=== PATIENT | male | born 1965 | race Caucasian/White ===

== ENCOUNTER 2020-06-28 06:58 | Outpatient (REF) | payer OTHER, SELFPAY ==
[2020-06-28 08:00] LABS: MANUAL DIFF FLAG NO
[2020-06-28 08:07] LABS: Basophils Absolute Auto 0.1 X10*3/uL (0.0-0.2); Basophils Percent Auto 1.1 % (0-2); Eosinophils Absolute Auto 0.2 X10*3/uL (0.0-0.4); Eosinophils Percent Auto 3.7 % (0-4); Hematocrit 46.4 % (42-52); Hemoglobin 15.9 g/dl (14.0-18.0); Imm Gran Abs Auto 0.05 X10*3/uL (0.00-0.03); Imm Gran Pct Auto 0.8 % (0.0-0.4); Lymphocytes Absolute Auto 2.5 X10*3/uL (1.2-4.9); Lymphocytes Percent Auto 41.1 % (20-40); Mean Corpuscular HGB Conc 34.3 g/dl (31.0-36.0); Mean Corpuscular Hemoglobin 30.1 pg (27.0-33.0); Mean Corpuscular Volume 87.9 fL (80-98); Mean Platelet Volume 11.2 fL (9.4-12.4); Monocytes Absolute Auto 0.6 X10*3/uL (0.1-1.2); Monocytes Percent Auto 9.5 % (2-11); Neutrophils Absolute Auto 2.7 X10*3/uL (2.0-8.3); Neutrophils Percent Auto 43.8 % (45-73); Platelet Count 174 X10*3/uL (160-400); Red Blood Count 5.28 X10*6/uL (4.60-5.80); Red Cell Distribution Width 12.3 % (11.0-16.0); White Blood Count 6.2 X10*3/uL (4.8-10.8)
[2020-06-28 09:31] LABS: Creatinine Urine 181.88 mg/dL; Microalbum/Creatinine Ratio Ur 61.5 ug/mg cr
[2020-06-28 09:35] LABS: Alanine Aminotransferase 116 U/L (0-40); Albumin Level 4.8 g/dL (3.5-5.0); Alkaline Phosphatase 96 U/L (39-117); Anion Gap 15 (12-20); Aspartate Amino Transferase 74 U/L (5-37); Bilirubin Direct 0.3 mg/dL (0.0-0.5); Bilirubin Total 0.5 mg/dL (0.0-1.0); Blood Urea Nitrogen 15 mg/dL (9-16); Calcium 9.7 mg/dL (8.4-10.2); Carbon Dioxide 22 mmol/L (22-29); Chloride 104 mmol/L (96-108); Cholesterol 172 mg/dL; Estimated Glomerular Filt Rate > 60; Gamma Glutamyl Transpeptidase 147 U/L (11-51); Glucose Random 210 mg/dL (60-115); HDL Cholesterol 47 mg/dL; LDL Cholesterol Calculated 98 mg/dl; Potassium 4.1 mmol/L (3.3-5.1); Sodium 137 mmol/L (135-145); Total Protein 7.5 g/dL (6.5-8.0); Triglycerides 139 mg/dL; Uric Acid 3.8 mg/dL (3.4-7.0)
[2020-06-28 09:45] LABS: TSH reflex Free T4 1.35 uIU/mL (0.32-4.0); Vitamin D 25-OH Total 21.4 ng/mL (>30)
[2020-06-30 09:02] LABS: Folate 16.9 ng/mL (> or = 4.0); Vitamin B12 443 pg/mL (200-900)
== END 2020-06-28 06:59 | disposition home or self-care (01) ==
LOC: HO.LAB 06:58
PROVIDERS: PCP Family Medicine; Visit Provider Family Medicine
DX: E11.9 Type 2 diabetes mellitus without complications (principal)
CPT/HCPCS: 36415; 80048; 80061; 80076; 82043; 82306; 82607; 82746; 82977; 84443; 84550; 85025

== ENCOUNTER 2020-07-25 20:15 | Emergency (ER) | payer OTHER, SELFPAY ==
--- NOTE | ~2020-07-25 | XR_ITS ---
EXAMINATION: XR FINGER, RIGHT CLINICAL INFORMATION: Injury right middle finger COMPARISON: Right hand radiographs 09/16/2017 TECHNIQUE: 3 views of the right middle finger. FINDINGS: There is gross fragmentation of the distal phalanx of the middle finger with what appears to be a comminuted fracture. No other fractures are seen. Please correlate with the injury. A large defect is seen in the soft tissues at the level of the DIP joint on the radial aspect. XR/XR finger RT min 2V IMPRESSION: Comminuted fracture distal phalanx middle finger
[2020-07-25 20:38] VITALS: BP 115/64; PULSE 78; RESP 18; TEMP 36.7; O2SAT 97; BMI 28.5
[2020-07-25 20:50] LABS: Glucose, Whole Blood 171 mg/dL (60-115)
--- NOTE | 2020-07-25 21:14 | ED.WOUNDLAC ---
HPI - Wound/Laceration General Chief Complaint: Wound/Laceration Stated Complaint: lac Time Seen by Provider: 07/25/20 21:12 Source: patient Mode of arrival: ambulatory Limitations: no limitations History of Present Illness HPI narrative: Patient comes emergency room complaining of a laceration/near amputation to the middle finger on the right hand. Patient states he had a few beers to drink, he was sitting in a chair, somehow he slid out and his finger got trapped in the railing of the chair. Patient states that this time he has no pain, declines pain medication, bleeding controlled. Related Data Previous Rx's Medication Instructions Recorded cefuroxime axetil 500 mg PO BID #20 tab 07/25/20 ibuprofen 600 mg PO TID PRN #14 tab 07/25/20 tramadol 50 mg PO BID PRN #10 tab 07/25/20 Allergies Allergy/AdvReac Type Severity Reaction Status Date / Time No Known Allergies Allergy Unverified 11/08/19 16:22 Review of Systems Review of Systems: Constitutional : No Weight loss, No Fever, No Chills, No Night Sweats, No Fatigue, No Malaise ENT/Mouth : No Hearing loss, No Ear Pain, No Nasal Congestion, No Sinus Pain, No Hoarseness, No sore throat, No Rhinorrhea, No Swallowing Difficulty Eyes: No Eye Pain, No Swelling, No Redness, No Foreign Body, No Discharge, No Vision Changes Cardiovascular : No Chest Pain, No SOB, No Dyspnea on Exertion, No Orthopnea, No Edema, No Palpitations Respiratory : No Cough, No Sputum, No Wheezing, No Smoke Exposure, No Dyspnea Gastrointestinal : No Nausea, No Vomiting, No Diarrhea, No Constipation, No abdominal Pain, No Hematochezia, No Melena Genitourinary : no irregular bleeding, No Dysuria, No Urinary Frequency, No Hematuria, No Urinary Incontinence, No Urgency, No Flank Pain, No Urinary Flow Changes, No Hesitancy Musculoskeletal see skin below No Myalgias, No Joint Swelling Skin : Complaining of a laceration to the right middle finger Neuro : No Weakness, No Numbness, No Paresthesias, No Loss of Consciousness, No Dizziness, No Headache Psych : No Anxiety/Panic, No Depression, No SI/HI/AH/VH, No Social Issues, Heme/Lymph: No Bruising, No Bleeding,No Lymphadenopathy Endocrine : No Polyuria, No Polydipsia, No Temperature Intolerance PMF Past Medical History Medical History Diabetes Gout HTN (hypertension) Hyperlipemia Social History Social History Alcohol intake: current Alcohol intake frequency: a few times a week Alcohol type: beer Patient Tobacco Use Status: Never used Tobacco Smoked in Last 30 Days: No Use of substances other than those prescribed or required for medical reasons: No Advance Directives: No Advance Directives Information Provided: No Physical Exam Vital Signs: Vital Signs: Last Vital Signs Temp 98.0 F 07/25/20 20:38 Pulse 75 07/25/20 22:19 Resp 18 07/25/20 22:19 BP 102/62 07/25/20 22:19 Pulse Ox 97 07/25/20 22:19 Body Mass Index 28.5 Appearance: Alert. Oriented X3. No acute distress. Eyes: Pupils equal, round and reactive to light. ENT: Pharynx normal. Neck: Normal inspection. Neck supple. No lymph nodes noted. No crepitus CVS: Normal heart rate and rhythm. Pulses normal. Normal S1 and S2 Respiratory: No respiratory distress. Breath sounds normal. No Wheezing. No rales Abdomen: Soft and nontender. No rigidity. No distention. good BS x4 Skin: Skin warm and dry. Laceration to the right middle finger, near circumferential, deep, bleeding controlled. Extremities: No lower extremity edema. See skin above. Patient is able to flex and extend all fingers, however he is unable to flex the distal aspect of the distal middle finger. And a bloodless field exam, the distal aspect of the flexor, passing the DIP, the nerves are severed, the distal part of the middle finger is nearly degloved. Patient has no sensation/no pain when I move his finger or press on the distal aspect of his finger Neuro: Oriented X 3. No motor deficit. No sensory deficit. Moving all extermities. No slurred speech. Course Course Course Narrative: I discussed with the patient that the nerves in the distal part of his middle finger are severed, he is able to completely move his whole finger and flex the finger at the DIP. At this time, the tip of the finger is pink, seems that is getting good blood supply. I discussed with the patient that his nail will likely fall off, also discussed with the patient that he will likely be unable to regain movement at the distal end of his finger, passing the DIP. Patient understands. I discussed the patient with COMFORT Rivera from Orthopedics. Patient will follow-up as an outpatient Patient received 1 dose of IV cefotetan, Tdap, will be sent home with antibiotics as well. MDM - Wound/Laceration Lab Data Labs: Lab Results 07/25/20 Range/Units 20:45 POC Glucose 171 H (60-115) mg/dL Imaging Data Finger x-ray: Radiologist's impression: There is gross fragmentation of the distal phalanx of the middle finger with what appears to be a comminuted fracture. No other fractures are seen. Please correlate with the injury. A large defect is seen in the soft tissues at the level of the DIP joint on the radial aspect. XR/XR finger RT min 2V IMPRESSION: Comminuted fracture distal phalanx middle finger Discharge Plan Discharge Clinical Impression: Laceration Fracture of middle phalanx of finger Qualifiers: Encounter type: initial encounter Finger: middle finger Fracture type: open Fracture alignment: displaced Laterality: right Qualified Code(s): S62.622B - Displaced fracture of middle phalanx of right middle finger, initial encounter for open fracture Patient Disposition: Home, Self-Care Instructions: Laceration (ED), Finger Fracture (ED) Additional Instructions: Please follow-up with orthopedics. If you see any signs of infection such as redness, pus drainage, fever, anything abnormal, please return to the emergency room. Otherwise please follow-up with your primary care physician tomorrow and with Orthopedics on Tuesday. Prescriptions: New cefuroxime axetil 500 mg tablet 500 mg PO BID Qty: 20 RF: 0 tramadol 50 mg tablet 50 mg PO BID PRN (Reason: pain) Qty: 10 RF: 0 ibuprofen 600 mg tablet 600 mg PO TID PRN (Reason: pain) Qty: 14 RF: 0
[2020-07-25] MEDS: Diphth,Pertus(ACell),Tet Adult 0.5 ML SYRINGE IM (22:17)
[2020-07-25 22:19] VITALS: BP 102/62; PULSE 75; RESP 18; O2SAT 97
[2020-07-25] MEDS: Lidocaine HCl 2 % MPF 5 ML VIAL 10 ML INFILTRATI (22:35)
--- NOTE | 2020-07-25 23:00 | PC.NURSE ---
Dr. Altamirano at bedside suturing digit. Pt tolerating well.
[2020-07-25] MEDS: cefoTEtan disodium 2 GM VIAL IM (23:57)
[2020-07-26] MEDS: Morphine Sulfate 4 MG/ML CARTRIDGE IVPUSH (00:47)
== END 2020-07-26 01:22 | disposition home or self-care (01) ==
PROVIDERS: Emergency Provider Emergency Medicine
DX: S62.622B Displaced fracture of middle phalanx of right middle finger, initial encounter for open fracture (principal); W23.1XXA Caught, crushed, jammed, or pinched between stationary objects, initial encounter; Y93.89 Activity, other specified; Y92.017 Garden or yard in single-family (private) house as the place of occurrence of the external cause; Y99.9 Unspecified external cause status; E11.9 Type 2 diabetes mellitus without complications; I10 Essential (primary) hypertension; E78.5 Hyperlipidemia, unspecified
CPT/HCPCS: 73140; 82947; 90471; 90715; 96372; 96374; 96375; 99284; J2270

== ENCOUNTER → 2020-07-28 14:30 | Outpatient (BNVA) | payer OTHER, SELFPAY | PROVIDERS: Visit Provider Physician Assistant ==

== ENCOUNTER → 2020-08-06 13:48 | Outpatient (BNVA) | payer OTHER, SELFPAY | PROVIDERS: PCP Family Medicine; Visit Provider Physician Assistant ==

== ENCOUNTER → 2020-08-11 13:26 | Outpatient (BNVA) | payer OTHER, SELFPAY | PROVIDERS: PCP Family Medicine; Visit Provider Physician Assistant ==

== ENCOUNTER → 2020-09-03 14:57 | Outpatient (BNVA) | payer OTHER, SELFPAY | PROVIDERS: PCP Family Medicine; Visit Provider Physician Assistant | DX: S61.212A Laceration without foreign body of right middle finger without damage to nail, initial encounter (principal) ==

== ENCOUNTER 2020-09-11 08:00 | Outpatient (RCR) | payer OTHER, SELFPAY ==
--- NOTE | 2020-08-26 14:31 | MHC.OT.OEV ---
[address] [phone] F: [phone] Occupational Therapy Evaluation Diagnosis: Right MF tuft Fx Date of Onset: 07/25/20 Attending Provider: Cecilia Rivera PA-c Prescribed Treatment: Eval and Treat MD Follow Up Appointment: 09/03/20 History of Current Condition: Pt was sitting in a metal folding chair, had is hand against the closure part, leaned back in chair and finger got caught in the closure. He was seen in the ED w/ near amputation, tendons intact, nerve was injured. X-ray shows comminuted distal phalanx fracture. He had 20 stitches and splinted, then referred to [facility] for follow up care. was assisting w/ cleaning the wound. 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 [employer] Living Situation, Family and/or Social Support: , lives w/ son, grandkids visit often Current Level of Function and Occupation Self Care, Employment, Leisure: Out of work, anxious to return to work Starting to open cans and jars Sleep: No issues Driving: No issues Pain Assessment Pain Score: 0 Pain Scale Used: Numeric (0 - 10) Pain Location and Description: Pain free at rest Some pain w/ forceful movements at nail bed Aggravating Factors: Forceful movements Alleviating Factors: Not used any more (was using Tylenol and heat) Skin and Soft Tissue Assessment Skin and Soft Tissue: Nail Changes Swelling Comments: Well healed sutures around DIP circumference Injury to MF nail/nail bed, dry Sensory Assessment Light Touch: Right Impaired Comments: [place] Carlene 3.61 throughout B/L palms/volar digits except 4.31 right MF distal phalanx Edema Assessment Upper Extremity: Right Impaired Left Impaired Lower Extremity: Comments: B/L MF edema, left due to old fx, right due to recent injury Dexterity Assessment Comments: Able to use right finger, has not had finctional limitations w/ FMC tasks AROM(PROM) Strength Digits Index MCP: PIP: DIP: Long MCP: R 82 L 92 PIP: R 88 L 80 DIP: R 46 L 76 Ring MCP: PIP: DIP: Small MCP: PIP: DIP: Comments: No extension lag or flex contracture noted Gross Grasp: R NT L 100lb Lateral Pinch: Two-Point Pinch: Three-Jaw Juan C: Comments: Patient Education Primary Language: Director Clinical Research Required: Yes Current Knowledge: Understands information with skills for self-management Teaching Method: Demonstration Handouts Verbal Education Needs Identified on Evaluation: ADL's Disease Information Exercise Pain Safety How did patient/family demonstrate learning? Patient demonstrates Patient verbalizes Family/SO demonstrates Family/SO verbalizes Barriers to Learning: None Readiness for Learning: Accepting Who was educated? Patient Family/spouse Comments: present and supportive Plan of Care Assessment: 55 yo male presents about four weeks after right MF laceration, needing 20 sutures in ED, he has since been following up w/ Cecilia Rivera PA-C. 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 He has had trouble w/ heavier use of right hand, i.e. opening containers or jars, but otherwise has good FMC. On assessment, he has decreased DIP flexion and slightly decreased sensation, but is overall doing well. I anticipate he will do well w/ brief OT course w/ goal of self management and protection in order to return to work. STG Duration: 1 week Short Term Goals: Ind w/ scar and edema massage DIP flex >50 degrees LTG Duration: 4 weeks [facility] Goals: Return to work w/ cap splint for protection as needed Right gross grasp 50lb Pain free w/ moderate use of right hand DIP flex >60 degrees Frequency and Duration: The patient will be seen 1x/wk for 4 weeks Treatment Plan: Therapeutic Exercise Therapeutic Activity Home Exercise Program Splinting Patient Education Desensitization/Sensory Re-ed Edema Control ADL Training Soft Tissue Mobilization May not be appropriate for heat/cold modalities due to concern that nail may fall off and hypersensitivity if this happens May benefit from stack splint 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
--- NOTE | 2020-09-01 15:35 | MHC.OT.OP ---
[address] [phone] F: [phone] Occupational Therapy Progress Note Diagnosis: Right MF tuft Fx Date of Evaluation: 08/26/20 Treatments to Date: 3 Cancellations to Date: No Shows to Date: Subjective: It's good Pain Score: 0 Pain Location: Right MF DIP Objective Measures: MCP 80 PIP 84 DIP 42 Status: Progressing Assessment: Jesu is now 5 weeks s/p injury w/ right MF tuft fx and laceration requiring sutures in ED. Since initial assessment, no significant increase in digit range, but scar softening and decreased edema, but with improving functional use of right hand and able to make tip-palm fist. He is pain free for the most part and is reporting sensation return as well. He is anxious to return to work, I have made custom stack splint for protection of fracture and nail bed, he would also require protection on healing nail bed to minimize risk of infection, although there are no visually open areas at this time, the nail may still fall off. Short Term Goals: Ind w/ scar and edema massage (met) DIP flex >50 degrees Residential Goals: Return to work w/ cap splint for protection as needed Right gross grasp 50lb Pain free w/ moderate use of right hand DIP flex >60 degrees Frequency and Duration: The patient will be seen 1x/wk for 2 more weeks Treatment Plan: Therapeutic Exercise Therapeutic Activity Home Exercise Program Splinting Patient Education Desensitization/Sensory Re-ed Edema Control ADL Training Ultrasound Joint Mobilization Soft Tissue Mobilization May not be appropriate for heat/cold modalities due to concern that nail may fall off and hypersensitivity if this happens May benefit from stack splint 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
--- NOTE | 2020-09-11 08:25 | MHC.OT.DC ---
[address] [phone] F: [phone] Occupational Therapy Discharge Note Provider: Cecilia Rivera PA-C Diagnosis: Right MF tuft Fx Date of Evaluation: 08/26/20 Date of Discharge: 09/11/20 Treatments to Date: 4 Discharge Status: Achieved Goals Improved Function Independent with HEP Discharge Summary: Jesu is 6 weeks s/p right middle finger slime fx and sutured laceration. He has returned to work and has good understanding of digit protection in temrs of the nail bed. He continues to work on HEP and scar massage. Shows increased digit flex and good strength overall. No further OT needed at this time, Ind w/ self management. Electronically Signed By: Destiny Moore OTR/L Please Sign and return to therapist, thank you for your referral.
== END 2020-09-11 08:25 | disposition home or self-care (01) ==
LOC: HO.OT 08:00
PROVIDERS: Visit Provider Physician Assistant
DX: S61.212D Laceration without foreign body of right middle finger without damage to nail, subsequent encounter (principal)
CPT/HCPCS: 29130; 97110; 97112; 97140; 97165; 97760

== ENCOUNTER 2021-01-21 10:03 | Emergency (ER) | payer OTHER, SELFPAY ==
--- NOTE | ~2021-01-21 | XR_ITS ---
EXAMINATION: XR CHEST CLINICAL INFORMATION: Cough, sputum with blood streak. COMPARISON: None TECHNIQUE: 3 views of the chest are obtained. FINDINGS: There are low lung volumes. There is mild coarsening of the bronchiolar markings. No hyperinflation. There is disc atelectasis right perihilar region. Suspect small groundglass opacity mid left posterior base. No lobar or segmental airspace consolidation or effusion. The heart is normal in size. Vascularity normal. The hilar and mediastinal contours are normal. No acute bony abnormality. Bilateral nipple shadows on one of the 2 frontal views. XR/XR chest 2V IMPRESSION: 1. Low lung volumes. Mild coarsening bronchiolar markings. 2. Disc atelectasis right perihilar region. Faint groundglass opacity left mid and posterior base.
[2021-01-21 10:26] VITALS: BP 137/90; PULSE 99; RESP 20; TEMP 36.9; O2SAT 94; BMI 27.4
--- NOTE | 2021-01-21 10:29 | ECG_ITS ---
Test Reason : DYSPNEA Blood Pressure : / mmHG Vent. Rate : 090 BPM Atrial Rate : 090 BPM P-R Int : 166 ms QRS Dur : 096 ms QT Int : 348 ms P-R-T Axes : 025 -02 007 degrees QTc Int : 425 ms Normal sinus rhythm Incomplete right bundle branch block Borderline ECG When compared with ECG of 19-AUG-2012 23:37, No significant change was found Referred By: Generic ED Physician Electronically Signed By:SHARATH DUDLEY
--- NOTE | 2021-01-21 10:43 | ED_ITS ---
HPI - SOB/Dyspnea General Chief Complaint: Dyspnea Stated Complaint: coughing up blood diff breathing Time Seen by Provider: 01/21/21 10:43 Source: patient Mode of arrival: ambulatory Limitations: no limitations History of Present Illness HPI Narrative: patient is vaccinated with Moderna, coughing for 3 days now with blood streaks. Vaccinated against flu. patient had one day of fever to 101 MD elicited complaint: shortness of breath and cough Pertinent past history: asthma Onset (ago): day(s) Context: recent illness Timing: constant Severity: moderate Exacerbating factors: talking Known history of: asthma Associated symptoms: fever and cough Related Data Home Medications Medication Instructions Recorded Confirmed allopurinol 100 mg tablet 400 mg PO DAILY 07/28/20 atenolol 25 mg tablet 25 mg PO DAILY 07/28/20 colchicine 0.6 mg tablet 0 mg PO 07/28/20 lancets #100 ea 07/28/20 metformin 500 mg tablet,extended 1,000 mg PO BID 07/28/20 release 24 hr omega-3 acid ethyl esters 1 gram 1 cap PO BID 07/28/20 capsule simvastatin 40 mg tablet 40 mg PO QPM 07/28/20 blood sugar diagnostic #10 ea 08/11/20 blood-glucose meter #1 ea 08/11/20 Previous Rx's Medication Instructions Recorded cefuroxime axetil 500 mg tablet 500 mg PO BID #20 tab 07/25/20 ibuprofen 600 mg tablet 600 mg PO TID PRN #14 tab 07/25/20 tramadol 50 mg tablet 50 mg PO BEDTIME PRN 7 Days #7 tab 08/06/20 [id number] 2.5 20 ml PO Q4H PRN #118 ml 01/21/21 mg-5 mg-50 mg/5 mL oral liquid (Robitussin Cough and Cold CF) Allergies Allergy/AdvReac Type Severity Reaction Status Date / Time No Known Allergies Allergy Verified 09/03/20 15:02 Review of Systems Constitutional: Constitutional: Reports no additional constitutional com plaints Eyes: Eyes: Reports no additional eye complaints ENT: Denies dizziness Cardiovascular: Cardiovascular: Reports no additional cardiovascular complaints Respiratory: Respiratory: Reports as per HPI Gastrointestinal: Gastrointestinal: Reports no additional gastrointestinal complaints Musculoskeletal: Musculoskeletal: Reports no additional musculoskeletal complaints Integumentary/Breasts: Skin/Breast: Denies rash Neurologic: Reports system reviewed and no additional complaints, except as documented, Denies dizziness and Denies Sensory deficit (Neuro) Psychiatric: Psychiatric: Denies anxiety [facility] Past Medical History Medical History Diabetes Gout HTN (hypertension) Hyperlipemia Laceration of right middle finger Social History Social History Alcohol intake: current Alcohol intake frequency: a few times a week Alcohol type: beer Patient Tobacco Use Status: Never used Tobacco Advance Directives: No Advance Directives Information Provided: No Physical Exam Vital Signs: Vital Signs: Last Vital Signs Temp 101.4 F H 01/21/21 12:46 Pulse 97 01/21/21 12:23 Resp 16 01/21/21 12:23 BP 139/80 01/21/21 12:23 Pulse Ox 94 01/21/21 12:23 BMI result Body Mass Index 27.4 Const: Other: patient with paroxysmal coughing spasms, no active hemoptysis Nutritional Appearance: average body habitus Orientation/consciousness: oriented to person and patient oriented x3 Limitations: no limitations HENMT: Head: Yes normal to inspection Ears: external ears normal General nose exam: Normal external nose present Mouth: Normal oral and palatal mucosa present and oropharynx normal Throat: Yes posterior oropharynx normal Eyes: General: appearance normal, both eyes and all related structures Neck: Other: supple Neck: Yes normal visual inspection Chest: Chest palpation & inspection: normal inspection of the chest Resp: Other: bilateral basilar rales Cardio: Jugular venous distension: no JVD Rate: regular rate Rhythm: regular rhythm Heart sounds: S1 normal heart sound present and S2 normal heart sound present GI: Inspection: Yes normal to inspection Palpation (GI): Soft to palpation, nontender and No hepatosplenomegaly present Auscultation: normal bowel sounds : General: Yes no CVA tenderness Back/Spine/Pelvis: Back: no CVA tenderness Skin: General skin exam: no rashes or lesions noted Neuro: General: oriented to person and patient oriented x3 Cranial nerves: Yes CN's II-XII intact bilaterally Motor exam (neuro): 5/5 motor strength present throughout Sensory Exam: No Sensory deficit (Neuro) Extrem: General: Yes normal to inspection Psych: Appearance: grossly normal Course Reevaluation(s) Reevaluation #1: patient is not hypoxic, xray shows ground glass, no hemoptysis while in the ED, oxygen is 98% will dc home Time: 13:53 MDM - SOB/Dyspnea Lab Data Result diagrams: 01/21/21 11:00 01/21/21 11:00 Labs: Lab Results 01/21/21 01/21/21 01/21/21 Range/Units 11:00 11:00 11:00 WBC 7.4 (4.8-10.8) X10*3/uL RBC 4.56 L (4.60-5.80) X10*6/uL Hgb 14.0 (14.0-18.0) g/dl Hct 41.1 L (42.0-52.0) % MCV 90.1 (80.0-98.0) fL MCH 30.7 (27.0-33.0) pg MCHC 34.1 (31.0-36.0) g/dl RDW 12.6 (11.0-16.0) % Plt Count 143 L (160-400) X10*3/uL MPV 10.0 (9.4-12.4) fL Immature Gran % (Auto) 0.5 H (0.0-0.4) % Neut % (Auto) 70.5 (45-73) % Lymph % (Auto) 22.4 (20-40) % Roberts % (Auto) 6.1 (2-11) % Eos % (Auto) 0.4 (0-4) % Baso % (Auto) 0.1 (0-2) % Lymph # (Auto) 1.7 (1.2-4.9) X10*3/uL Roberts # (Auto) 0.5 (0.1-1.2) X10*3/uL Eos # (Auto) 0.0 (0.0-0.4) X10*3/uL Baso # (Auto) 0.0 (0.0-0.2) X10*3/uL Abs Immat Gran (auto) 0.04 H (0.00-0.03) X10*3/uL Absolute Neuts (auto) 5.2 (2.0-8.3) x10*3/uL Absolute Nucleated RBC 0.000 (0.0-0.012) X10*3/uL Nucleated RBC % (auto) 0.0 (0.0-0.2) /100WBC Sodium 135 (135-145) mmol/L Potassium 4.3 (3.3-5.1) mmol/L Chloride 102 (96-108) mmol/L Carbon Dioxide 21 L (22-29) mmol/L Anion Gap 16 (12-20) BUN 9 (9-16) mg/dL Creatinine 0.77 (0.5-1.4) mg/dL Estim Creat Clear Calc 104.7 Estimated GFR > 60 Random Glucose 109 D (60-115) mg/dL Calcium 8.6 D (8.4-10.2) mg/dL Influenza Type A (PCR) NEGATIVE (Negative) Influenza Type B (PCR) NEGATIVE (Negative) RSV RNA Qual (PCR) NEGATIVE (Negative) SARS-CoV-2 RNA (RT-PCR) POSITIVE A (Negative) Imaging Data Chest x-ray: Radiologist's impression: IMPRESSION: ? 1. Low lung volumes. Mild coarsening bronchiolar markings. 2. Disc atelectasis right perihilar region. Faint groundglass opacity left mid and posterior base. ECG Data Attestation: I personally reviewed and interpreted this ECG as follows: Interpretation: sinus 90, no st or twave changes Discharge Plan Discharge Clinical Impression: COVID-19 Patient Disposition: Home, Self-Care Instructions: COVID-19 (Coronavirus Disease 2019) (ED) Prescriptions: New Robitussin Cough and Cold CF 2.5-5-50 mg/5 mL liquid 20 ml PO Q4H PRN (Reason: cough) Qty: 118 RF: 0 No Action cefuroxime axetil 500 mg tablet 500 mg PO BID Qty: 20 RF: 0 ibuprofen 600 mg tablet 600 mg PO TID PRN (Reason: pain) Qty: 14 RF: 0 metformin 500 mg tablet extended release 24 hr 1,000 mg PO BID RF: 0 (DME) lancets Misc See Rx Instructions ea .ROUTE .MEDSUPPLY Qty: 100 RF: 0 atenolol 25 mg tablet 25 mg PO DAILY RF: 0 simvastatin 40 mg tablet 40 mg PO QPM RF: 0 colchicine 0.6 mg tablet 0 mg PO RF: 0 omega-3 acid ethyl esters 1 gram capsule 1 cap PO BID RF: 0 allopurinol 100 mg tablet 400 mg PO DAILY RF: 0 (DME) OneTouch Verio test strips Strip See Rx Instructions ea Not Applicable QID Qty: 10 RF: 0 (DME) blood-glucose meter Misc See Rx Instructions ea .ROUTE QID Qty: 1 RF: 0 tramadol 50 mg tablet 50 mg PO BEDTIME PRN (Reason: pain) 7 Days Qty: 7 RF: 0 Referrals: Татьяна Vera MD [Primary Care Provider] - 1 week Stand Alone Forms: Work/School Release
[2021-01-21 11:05] LABS: MANUAL DIFF FLAG NO
[2021-01-21 11:07] LABS: Basophils Percent Auto 0.1 % (0-2); Eosinophils Percent Auto 0.4 % (0-4); Hematocrit 41.1 % (42.0-52.0); Imm Gran Abs Auto 0.04 X10*3/uL (0.00-0.03); Imm Gran Pct Auto 0.5 % (0.0-0.4); Lymphocytes Absolute Auto 1.7 X10*3/uL (1.2-4.9); Lymphocytes Percent Auto 22.4 % (20-40); Mean Corpuscular HGB Conc 34.1 g/dl (31.0-36.0); Mean Corpuscular Hemoglobin 30.7 pg (27.0-33.0); Mean Corpuscular Volume 90.1 fL (80.0-98.0); Monocytes Absolute Auto 0.5 X10*3/uL (0.1-1.2); Monocytes Percent Auto 6.1 % (2-11); Neutrophils Absolute Auto 5.2 x10*3/uL (2.0-8.3); Neutrophils Percent Auto 70.5 % (45-73); Platelet Count 143 X10*3/uL (160-400); Red Blood Count 4.56 X10*6/uL (4.60-5.80); Red Cell Distribution Width 12.6 % (11.0-16.0); White Blood Count 7.4 X10*3/uL (4.8-10.8)
[2021-01-21 11:31] LABS: Anion Gap 16 (12-20); Blood Urea Nitrogen 9 mg/dL (9-16); Calcium 8.6 mg/dL (8.4-10.2); Carbon Dioxide 21 mmol/L (22-29); Chloride 102 mmol/L (96-108); Creatinine Clr Calc Pharmacy 104.7; Estimated Glomerular Filt Rate > 60; Glucose Random 109 mg/dL (60-115); Potassium 4.3 mmol/L (3.3-5.1); Sodium 135 mmol/L (135-145)
[2021-01-21] MEDS: guaiFENesin 200 MG/10 ML 10 ML LIQUID PO (12:12)
[2021-01-21] MEDS: Azithromycin 500 MG TABLET PO (12:13)
[2021-01-21 12:23] VITALS: BP 139/80; PULSE 97; RESP 16; TEMP 38.6; O2SAT 94
[2021-01-21 12:46] VITALS: TEMP 38.6
[2021-01-21] MEDS: Acetaminophen 325 MG TABLET 650 MG PO (12:48)
[2021-01-21 13:15] LABS: Influenza A PCR NEGATIVE (Negative); Influenza B PCR NEGATIVE (Negative); Resp Syncy Virus RNA Qual PCR NEGATIVE (Negative); SARS COV2 PCR INHOUSE POSITIVE (Negative)
== END 2021-01-21 13:59 | disposition home or self-care (01) ==
PROVIDERS: Emergency Provider Emergency Medicine; PCP Family Medicine
DX: U07.1 COVID-19 (principal); R06.02 Shortness of breath; R05.9 Cough, unspecified; R50.9 Fever, unspecified; Z79.899 Other long term (current) drug therapy
CPT/HCPCS: 0241U; 36415; 71046; 80048; 85025; 93005; 99283; 99284

== ENCOUNTER → 2022-04-07 13:49 | Outpatient (BNVA) | payer OTHER, SELFPAY | PROVIDERS: PCP Family Medicine; Visit Provider Orthopaedic Surgery | DX: M18.12 Unilateral primary osteoarthritis of first carpometacarpal joint, left hand (principal); M18.11 Unilateral primary osteoarthritis of first carpometacarpal joint, right hand | CPT/HCPCS: J1020 ==

== ENCOUNTER 2023-01-22 07:23 | Outpatient (REF) | payer OTHER, SELFPAY ==
[2023-01-22 08:39] LABS: Microalbum/Creatinine Ratio Ur 16.8 ug/mg cr (<30)
[2023-01-22 08:44] LABS: Alanine Aminotransferase 123 U/L (0-40); Albumin Level 4.6 g/dL (3.5-5.0); Alkaline Phosphatase 79 U/L (39-117); Anion Gap 15 (12-20); Aspartate Amino Transferase 97 U/L (5-37); Bilirubin Total 0.6 mg/dL (0.0-1.0); Blood Urea Nitrogen 11 mg/dL (9-16); Calcium 9.4 mg/dL (8.4-10.2); Carbon Dioxide 22 mmol/L (22-29); Chloride 106 mmol/L (96-108); Estimated Glomerular Filt Rate > 60; Glucose Random 162 mg/dL (60-115); Sodium 139 mmol/L (135-145); Total Protein 7.6 g/dL (6.5-8.0)
[2023-01-22 09:00] LABS: Cholesterol 151 mg/dL (<200); HDL Cholesterol 49 mg/dL (>40); LDL Cholesterol Calculated 79 mg/dL (<100); Triglycerides 116 mg/dL (<150)
[2023-01-22 11:25] LABS: Reflex LDLD? No
[2023-01-22 11:32] LABS: Folate 14.4 ng/mL (> or = 4.0); Prostate Specific Antigen Scr 0.54 ng/mL (<0.05-4.0); Vitamin B12 653 pg/mL (200-900)
[2023-01-26 19:14] LABS: Testosterone, Free 62.5 pg/mL (35.0-155.0); Testosterone, Total 329 ng/dL (250-1100)
== END 2023-01-22 07:24 | disposition home or self-care (01) ==
LOC: HO.LAB 07:23
PROVIDERS: Visit Provider Family Medicine
DX: Z12.5 Encounter for screening for malignant neoplasm of prostate (principal); E11.65 Type 2 diabetes mellitus with hyperglycemia; N52.9 Male erectile dysfunction, unspecified
CPT/HCPCS: 36415; 80053; 80061; 82043; 82570; 82607; 82746; 84153; 84402; 84403

== ENCOUNTER 2023-09-22 09:18 | Outpatient (REF) | payer OTHER, SELFPAY ==
--- NOTE | ~2023-09-22 | US_ITS ---
EXAMINATION: US COMPLETE ABDOMEN WITH LIVER ELASTOGRAPHY CLINICAL INFORMATION: Elevated liver transaminase levels. COMPARISON: None available. TECHNIQUE: Real-time imaging of the abdominal viscera. Noninvasive ultrasound liver fibrosis assessment is performed using Gia ElastPQ point quantification shear wave elastography (pSWE) with a C5-2 MHz transducer. Multiple elastography samples are obtained. FINDINGS: PANCREAS: Limited. The visualized pancreatic head and body are normal in appearance. The remainder of the pancreas is obscured from visualization by the overlying bowel gas. ABDOMINAL AORTA: The proximal, middle, and distal aortic segments are normal in caliber. There are distal atherosclerotic calculations. INFERIOR VENA CAVA: Visualized portions are normal. LIVER: The liver demonstrates normal size, contour and generally increased echogenicity. No focal lesion or intrahepatic biliary duct dilatation. The right lobe measures 14.7 cm in length. The left lobe measures 10.3 cm in length. Portal flow is towards the liver (hepatopetal). Shear wave liver elastography median stiffness is 2.10 m/s (reference: normal median stiffness is 1.3 m/s or less). IQR/median stiffness to assess sampling precision is 0.08 (reference: good quality data set is IQR/median stiffness of 0.15 or less). GALLBLADDER: Normal. The gallbladder is physiologically distended without evidence of stones, sludge, polyps, wall thickening or pericholecystic fluid. COMMON BILE DUCT: Normal in caliber measuring 0.3 cm in diameter. RIGHT KIDNEY: There is a hypertrophic column of Henrry. No hydronephrosis. No renal calculi or focal parenchymal lesions. The kidney measures 10.7 cm in maximum dimension. LEFT KIDNEY: There is a hypertrophic column of Henrry. No hydronephrosis. No renal calculi or focal parenchymal lesions. The kidney measures 11.4 cm in maximum dimension. SPLEEN: Limited evaluation. The spleen measures 9.3 cm in maximum dimension. FREE FLUID: None. US/US abdomen comp w elastography IMPRESSION: 1. There is generalized increase in hepatic echotexture, consistent with fatty infiltration or hepatocellular disease. Please correlate clinically. No focal hepatic mass or intrahepatic biliary dilatation is seen. 2. Liver elastography: Measurements are suggestive of compensated advanced chroniic liver disease but need further test for confirmation. 3. Technically limited ultrasound examination, in particular of the pancreas and spleen. REFERENCE: Society of Radiologists in Ultrasound Liver Stiffness Thresholds (2020): LIVER STIFFNESS THRESHOLDS: *Liver Stiffness equal or less than 1.3 m/s: High probability of being normal. *Liver Stiffness less than 1.7 m/s: In the absence of other known clinical signs, rules out compensated advanced chronic liver disease. *Liver Stiffness 1.7-2.1 m/s: Suggestive of compensated advanced chronic liver disease but need further test for confirmation. *Liver Stiffness over 2.1 m/s: Rules in compensated advanced chronic liver disease. *Liver Stiffness over 2.4 m/s: Suggestive of clinically significant portal hypertension. QUALITY OF DATA SET: *IQR/Median value equal or less than 0.15 implies a quality data set. *IQR/Median value over 0.15 implies a poor quality data set. SIGNIFICANT CHANGE FROM PRIOR EXAM: Significant change if liver stiffness measurement is 10% or greater from prior exam. OTHER CONSIDERATIONS: The stage of liver fibrosis may be overestimated in the setting of acute hepatitis, liver Inflammation, elevated liver function tests, hepatic vascular congestion, obstructive cholestasis, non-fasting state, and infiltrative diseases such as amyloidosis and lymphoma. In some patients with NAFLD, the liver stiffness thresholds for compensated advanced chronic liver disease may be lower. In causes other than viral hepatitis and NAFLD, liver stiffness thresholds are not well established. Electronically signed by: Cameron Bejarano MD 10/17/2023 01:31 PM EDT
[2023-09-22 10:32] LABS: MANUAL DIFF FLAG NO
[2023-09-22 10:48] LABS: Basophils Absolute Auto 0.1 X10*3/uL (0.0-0.2); Basophils Percent Auto 0.9 % (0-2); Eosinophils Absolute Auto 0.1 X10*3/uL (0.0-0.4); Eosinophils Percent Auto 1.5 % (0-4); Hematocrit 44.5 % (42.0-52.0); Hemoglobin 15.3 g/dl (14.0-18.0); Imm Gran Abs Auto 0.04 X10*3/uL (0.00-0.03); Imm Gran Pct Auto 0.6 % (0.0-0.4); Lymphocytes Absolute Auto 2.1 X10*3/uL (1.2-4.9); Lymphocytes Percent Auto 31.8 % (20-40); Mean Corpuscular HGB Conc 34.4 g/dl (31.0-36.0); Mean Corpuscular Volume 90.3 fL (80.0-98.0); Mean Platelet Volume 10.1 fL (9.4-12.4); Monocytes Absolute Auto 0.6 X10*3/uL (0.1-1.2); Monocytes Percent Auto 9.2 % (2-11); Neutrophils Absolute Auto 3.7 x10*3/uL (2.0-8.3); Platelet Count 163 X10*3/uL (160-400); Red Blood Count 4.93 X10*6/uL (4.60-5.80); Red Cell Distribution Width 12.6 % (11.0-16.0); White Blood Count 6.6 X10*3/uL (4.8-10.8)
[2023-09-22 11:21] LABS: Alanine Aminotransferase 46 U/L (0-40); Albumin Level 4.6 g/dL (3.5-5.0); Alkaline Phosphatase 66 U/L (39-117); Anion Gap 12 (12-20); Aspartate Amino Transferase 42 U/L (5-37); Bilirubin Total 0.6 mg/dL (0.0-1.0); Blood Urea Nitrogen 10 mg/dL (9-16); Calcium 9.1 mg/dL (8.4-10.2); Carbon Dioxide 24 mmol/L (22-29); Chloride 106 mmol/L (96-108); Cholesterol 204 mg/dL (<200); Estimated Glomerular Filt Rate > 60; Glucose Random 102 mg/dL (60-115); HDL Cholesterol 58 mg/dL (>40); LDL Cholesterol Calculated 111 mg/dL (<100); Potassium 4.4 mmol/L (3.3-5.1); Sodium 138 mmol/L (135-145); Total Protein 7.5 g/dL (6.5-8.0); Triglycerides 178 mg/dL (<150)
[2023-09-22 11:34] LABS: Hepatitis A Antibody IgG Nonreactive (Nonreactive); ~Hepatitis A Antibody IgG 0.19 S/CO (0.00-0.99)
[2023-09-22 11:44] LABS: Reflex LDLD? No
[2023-09-22 11:45] LABS: HBS Num1 7.56 mIU/mL (0-7.99); HBc Num1 0.07 S/CO (0.00-0.79); HBsAGNum1 0.25 S/CO (0.00-0.99); HIV AB/AG Nonreactive (Nonreactive); HIV Num 1 0.05 S/CO (0.00-0.99); Hepatitis B Core Antibody Nonreactive (Nonreactive); Hepatitis B Surface Antigen Negative (Negative); ~Hepatitis B Surface Antibody NONREACTIVE (Nonreactive); ~Hepatitis C Antibody Nonreactive (Nonreactive)
== END 2023-09-22 09:19 | disposition home or self-care (01) ==
LOC: HO.US 09:18
PROVIDERS: PCP Family Medicine; Visit Provider Family Medicine
DX: R74.01 Elevation of levels of liver transaminase levels (principal); K76.0 Fatty (change of) liver, not elsewhere classified; F10.90 Alcohol use, unspecified, uncomplicated; I10 Essential (primary) hypertension; E11.65 Type 2 diabetes mellitus with hyperglycemia
CPT/HCPCS: 36415; 76700; 76981; 80053; 80061; 85025; 86704; 86706; 86708; 86803; 87340; 87389

== ENCOUNTER 2024-03-13 16:01 | Outpatient (REF) | payer OTHER, SELFPAY ==
[2024-03-13 17:37] LABS: MANUAL DIFF FLAG NO
[2024-03-13 17:42] LABS: Basophils Absolute Auto 0.1 X10*3/uL (0.0-0.2); Basophils Percent Auto 0.8 % (0-2); Eosinophils Absolute Auto 0.1 X10*3/uL (0.0-0.4); Eosinophils Percent Auto 1.2 % (0-4); Hematocrit 42.2 % (42.0-52.0); Hemoglobin 14.4 g/dl (14.0-18.0); Imm Gran Abs Auto 0.02 X10*3/uL (0.00-0.03); Imm Gran Pct Auto 0.2 % (0.0-0.4); Lymphocytes Absolute Auto 3.2 X10*3/uL (1.2-4.9); Lymphocytes Percent Auto 33.8 % (20-40); Mean Corpuscular HGB Conc 34.1 g/dl (31.0-36.0); Mean Corpuscular Hemoglobin 29.6 pg (27.0-33.0); Mean Corpuscular Volume 86.7 fL (80.0-98.0); Mean Platelet Volume 10.2 fL (9.4-12.4); Monocytes Absolute Auto 0.8 X10*3/uL (0.1-1.2); Monocytes Percent Auto 8.7 % (2-11); Neutrophils Absolute Auto 5.2 x10*3/uL (2.0-8.3); Neutrophils Percent Auto 55.3 % (45-73); Platelet Count 204 X10*3/uL (160-400); Red Blood Count 4.87 X10*6/uL (4.60-5.80); Red Cell Distribution Width 13.3 % (11.0-16.0); White Blood Count 9.4 X10*3/uL (4.8-10.8)
--- OUTSIDE RECORDS SUMMARY | 2024-03-13 17:42 | XMS_ITS | Encounter Summary ---
Author Organization [employer] Address [address] [place] [address] Care Team Providers Care Site Damage Prevention Technician Name Role Phone Татьяна Vera MD Primary Care Provider [phone] Raheem Merida PharmD Unavailable [phone] Reason for Visit * Reason Comments Med Refill Encounter Details Date Type Department Care Team ([facility] st Contact Info) Description 02/19/2024 Refill [facility] MED[facility]INE [address] [place], [place] [phone] Татьяна Vera MD [address] [place] [address] Essential hypertension; Gout, unspecified cause, unspecified chronicity, unspecified site Social History Tobacco Use Types Packs/Day Years Used Date Smoking Tobacco: Never Passive Smoke Exposure: Never Smokeless Tobacco: Never Alcohol Answer Date Recorded Frequency of Alcohol Consumption Not on file 08/30/2023 Average Number of Drinks Not on file 024 Frequency of Binge Drinking Not on file 10/2023 Score 1 08/30/2023 Depression Answer Date Recorded Patient Health Questionnaire-9 Score 0 12/13/2023 Patient Health Questionnaire-9 Score 0 12/13/2023 Last PHQ-9: Questionnaire Data Not on file 1 Housing Stability Answer Date Recorded What is your housing situation today? I have pati padilla 08/30/[address] you li ve. Do you have problems with any of the following? None of the above 08/30/2023 Food Insecurity Answer Date Recorded Within the past 12 months, y ou worried that your food would run out before you got money to buy more: Never True 08/30/2023 Within the past 12 months,th e food you bought just didn't last and you didn't have enough money to get more: Never True 10/2023 Transportation Answer Date Recorded In the past 12 months, has l ack of transportation kept you from medical appts, meetings, work or from getting things needed for daily living? No 08/30/2023 Utilities Answer Date Recorded In the past 12 months, has t he electric, gas, oil or water company threatened to shut off services in your home? No 08/30/2023 Depression Answer Date Recorded Patient Health Questionnaire-2 Score 0 12/13/2023 Internet Access Answer Date Recorded Internet Access Q1 Yes 10/24/2023 Internet Access Q2 Not on file 10/24/2023 Sex and Gender Information Value Date Recorded Sex Assigned at Male 12/21/2021 10:16 AM EDT Legal Sex Male 10:16 AM EDT Gender Identity Male 12/21/2021 10:16 AM EDT Sexual Orientation Straight 12/21/2021 10 :16 AM EDT documented as of this encounter Plan of Treatment Not on file documented as of this encounter Goals Goal Patient Goal Type Associated Problems Recent Progress Patient-Stated? Author Blood Pressure < 140/90 Blood Pressure 121/76(2024 3:23 PM EST) No Raheem Merida PharmD Hemoglobin A1c < 7 Result Component 7.5( 3:26 PM EST) No Raheem Merida PharmD documented as of this encounter Visit Diagnoses Diagnosis Essential hypertension Unspecified essential hypertension Gout, unspecified cause, unspecified chronicity, unspecified site documented in this encounter Additional Health Concerns Assessment Noted Time PHQ-9 Depression Total Score: 0 12/13/19 24 4:00 PM EDT documented as of this encounter Care Teams Site Damage Prevention Technician Relationship Specialty Start Date End Date Татьяна Vera MD [address] [place] [address] PCP - General Family Medicine 12/22/11 Raheem Merida PharmD [address] [place] [address] Pharmacist Internal Medicine 07/12/23 documented as of this encounter
--- OUTSIDE RECORDS SUMMARY | 2024-03-13 17:42 | XMS_ITS | Encounter Summary ---
Author Organization [employer] Address [address] [facility] 7t [place] [address] Care Team Providers Care Carpet Inspector Finished Name Role Phone Татьяна Vera MD Primary Care Provider [phone] Raheem Merida PharmD Unavailable [phone] Reason for Visit * Reason Onset Date Comments chart prep 03/09/2024 Encounter Details Date Type Department Care Team (Late st Contact Info) Description 03/09/2024 Telephone [facility] MEDICINE [address] [place], [place] [phone] Lisseth Riley MA chart prep Social History Tobacco Use Types Packs/Day Years [...] AM EDT documented as of this encounter Miscellaneous Notes * Telephone Encounter - Lisseth Riley MA - 03/09/2024 2:09 PM EST .Chart Prep Labs: not applicable Images: not applicable Vaccines due: Covid Due, Hep A Due, and Flu Due Referrals: Completed Screenings: Not Applicable Overdue care gaps: None documented in this encounter Plan of Treatment Not on file documented as of this encounter Goals Goal Patient Goal Type Associated Problems Recent Progress Patient-Stated? Author Blood Pressure < 140/90 Blood Pressure 121/76(2024 3:23 PM EST) No Raheem Merida, PharmAmelie Hemoglobin A1c < 7 Result Component 7.5( 3:26 PM EST) No Raheem Merida PharmD documented as of this encounter Visit Diagnoses Not on filedocumented in this encounter Additional Health Concerns Assessment Noted Time PHQ-9 Depression Total Score: 0 12/13/19 24 4:00 PM EDT documented as of this encounter Care Teams Carpet Inspector Finished Relationship Specialty Start Date End Date Татьяна Vera MD [address] [place] [address] PCP - General Family Medicine 12/22/11 Raheem Merida PharmD [address] [place] [address] Pharmacist Internal Medicine 07/12/23 documented as of this encounter
--- OUTSIDE RECORDS SUMMARY | 2024-03-13 17:42 | XMS_ITS | Encounter Summary ---
Author Organization [employer] Address [address] [facility] 7t [place] [address] Care Team Providers Care Cyber Threat Analyst Name Role Phone Татьяна Vera MD Primary Care Provider [phone] Raheem Merida PharmD Unavailable [phone] Reason for Visit * Reason Comments Med Refill Encounter Details Date Type Department Care Team ([facility] st Contact Info) Description 03/28/2022 Refill [facility] MEDICINE [address] [place], [place] [phone] Татьяна Vera MD [address] [place], [place] [phone] Social History Tobacco Use Types Packs/Day Years Used Date Smoking Tobacco: Never Passive Smoke Exposure: Never Smokeless Tobacco: Never Depression Answer Date Recorded Patient Health Questionnaire-9 Score 2 03/09/2022 Depression Answer Date Recorded Patient Health Questionnaire-2 Score 2 03/09/2022 Sex and Gender Information Value Date Recorded Sex Assigned at Male 12/21/2021 10:16 AM EDT Legal Sex Male 10:16 AM EDT Gender Identity Male 12/21/2021 10:16 AM EDT Sexual Orientation Straight 12/21/2021 10 :16 AM EDT COVID-19 Exposure Response Date Recorded In the last 10 days, have yo u been in contact with someone who was confirmed or suspected to have Coronavirus/COVID-19? No / Unsure 03/09/2022 2:33 PM EST documented as of this encounter Plan of Treatment Not on file documented as of this encounter Visit Diagnoses Not on filedocumented in this encounter Additional Health Concerns Assessment Noted Time PHQ-9 Depression Total Score: 2 03/09/19 23 3:09 PM EST documented as of this encounter Care Teams Cyber Threat Analyst Relationship Specialty Start Date End Date Татьяна Vera MD [address] [place] [address] PCP - General Family Medicine 12/22/11 Raheem Merida, Varun [address] [place] [address] Pharmacist Internal Medicine 07/12/23 documented as of this encounter
--- OUTSIDE RECORDS SUMMARY | 2024-03-13 17:42 | XMS_ITS | Encounter Summary ---
Author Organization [employer] Address [address] [facility] 7t [place] [address] Care Team Providers Care Flying Ii Instructor Name Role Phone Татьяна Vera MD Primary Care Provider [phone] Raheem Merida PharmD Unavailable [phone] Encounter Details Date Type Department Care Team (Late st Contact Info) Description 03/13/2024 3:15 PM EST Office Visit [facility] MEDICINE [address] [place], [place] [phone] Татьяна Vera MD [address] [place], [place] [phone] Type 2 diabetes mellitus with hyperglycemia, without long-term current use of insulin (CMS/HCC) (Primary Dx); Metabolic dysfunction-associate d steatotic liver disease and increased alcohol intake (MetALD); Essential hypertension; Mixed hyperlipidemia; Hyperuricemia; Gout, unspecified cause, unspecified chronicity, unspecified site; Encounter for immunization Social History Tobacco Use Types Packs/Day Years [...] AM EDT documented as of this encounter Last Filed Vital Signs Vital Sign Reading Time Taken Comments Blood Pressure 121/76 03/13/2024 3:23 PM EST Pulse 84 03/13/2024 3:23 PM EST Temperature 36.2 ??C (97.1 ??F) 03/13/2024 3:23 PM ES T Respiratory Rate 17 03/13/2024 3:23 PM EST Oxygen Saturation 98% 03/13/2024 3:23 PM EST Inhaled Oxygen Concentration - - Weight - - Height - - Body Mass Index - - documented in this encounter Miscellaneous Notes * Assessment & Plan Note - Charline Yuan - 03/13/2024 4:59 PM ESTAssociated Problem(s): Gout -continue allpurinol as prophylaxis -low-purine diet -reduce alcohol intake * Assessment & Plan Note - Charline Yuan - 03/13/2024 4:59 PM ESTAssociated Problem(s): Hyperuricemia -02/19/22 Uric acid 5.8 - continue allopurinol - reduce alcohol intake * Assessment & Plan Note - Charline Yuan - 03/13/2024 4:59 PM ESTAssociated Problem(s): Mixed hyperlipidemia - last lipid profile in Jan 2023 showed improvement in Triglyceride - current medication: atorvastatin 10 mg at bedtime, repeat liver function test and lipid profile in 3 mo - he does not take statin when he drinks alcohol - continue working on lifestyle modifications * Assessment & Plan Note - Charline Yuan - 03/13/2024 4:59 PM ESTAssociated Problem(s): Type 2 diabetes mellitus (CMS/HCC) -Dx: April 2019 -A1C 6.0% today on 12/12/23 -Continue working on lifestyle modifications. -Improve adherence to self-monitoring glucose: OneTouch glucometer -Continue Metformin ER 1000 mg BID, advise to improve adherence. -Continue repaglinide 0.5 mg tid -Discussed about other medications, but patient declines injectable medication and SGLT-2 inhibitordue to its side effect -Eye: exam on Mar 2023, [facility] - no diabetic retinopathy; mild Glaucoma. More recent exam per pt -Feet: comprehensive exam done on 05/24/23 -Fasting lipid profile: Jan 2023, improved Triglyceride -Microalbumin test: Jan 2023 no microalbuminuria -IZ - Hep B completed. Needs to give PPSV 23 * Assessment & Plan Note - Charline Yuan - 03/13/2024 4:59 PM ESTAssociated Problem(s): Metabolic dysfunction-associated steatotic liver disease and increased alcohol intake (MetALD) - Last liver test: 09/22/23 - Last US / elastography 09/22/23. Shear wave liver elastography median stiffness is 2.10 m/s, suggestive of compensated advanced liver disease - FIB4 index 2.20, intermediate - GI: [facility], last seen in April 2019 - continue working on lifestyle modifications - continue surveillance study -patient stopped drinking for 6wks and was supposed to recheck lab. However, the plan was interrupted by Covid-19. Will check next appt with GI. -continue reducing EtOH consumption. -previously tried Hydroxyzine to help cravings, anxiety. * Assessment & Plan Note - Charline Yuan - 03/13/2024 4:58 PM ESTAssociated Problem(s): Essential hypertension Goal BP < 140/90 per JNC-8; < 130/80 per ACC/AHA guideline Continue lifestyle modifications. Decrease lisinopril to 5 mg daily. Continue atenolol 25mg daily. Continue working on lifestyle modifications Continue working on reduction of alcohol consumption Continue checking home BP --Follow-up in 3 Months. documented in this encounter Plan of Treatment Scheduled Orders Name Type Priority Associated Diagnoses Orde r Schedule Hepatic Function Panel Lab Routine Metabolic dysfunction-associated steatotic liver disease and increased alcohol intake (MetALD) Expected: 03/13/2024 (Approximate), Expires: 03/13/2025 CBC auto differential Lab Routine Metabolic dysfunction-associated steatotic liver disease and increased alcohol intake (MetALD) Expected: 03/13/2024 (Approximate), Expires: 03/13/2025 documented as of this encounter Goals Goal Patient Goal Type Associated Problems Recent Progress Patient-Stated? Author Blood Pressure < 140/90 Blood Pressure 121/76(2024 3:23 PM EST) No Raheem Merida, PharmD Hemoglobin A1c < 7 Result Component 7.5( 3:26 PM EST) No Raheem Merida, PharmD documented as of this encounter Procedures Procedure Name Priority Date/Time Associated Diagnosis Comments POCT GLYCOSYLATED HEMOGLOBIN (HGB A1C) Routine 03/13/2024 3:26 PM EST Type 2 diabetes mellitus with hyperglycemia, without long-term current use of insulin (CMS/HCC) POCT GLUCOSE Routine 03/13/2024 3:26 PM EST Type 2 diabetes mellitus with hyperglycemia, without long-term current use of insulin ([facility]) documented in this encounter Results * (ABNORMAL) POCT glycosylated hemoglobin (Hgb A1c) (03/13/2024 3:26 PM EST) Hemoglobin A1C 7.5(A) 4.0 - 6.0 % QC Media Lot # [id number] Lot# Expiration Date , Blood Capillary blood specimen / Unknown 03/13/2024 3:26 PM EST Татьяна Vera MD POINT OF CARE TEST ENTER/EDIT OR DERABLES Final Result * POCT glucose manually resulted (03/13/2024 3:26 PM EST) Glucose Blood, POC 130 60 - 200 mg/dL QC Media Lot # [id number] Lot# Expiration Date ,025 Blood Capillary blood specimen / Unknown 03/13/2024 3:26 PM EST Татьяна Vera MD POINT OF CARE TEST ENTER/EDIT OR DERABLES Final Result documented in this encounter Visit Diagnoses Diagnosis Type 2 diabetes mellitus with hyperglycemia, without long-term current use of insulin ([facility])- Primary Metabolic dysfunction-associated steatotic liver disease and increased alcohol intake (MetALD) Essential hypertension Unspecified essential hypertension Mixed hyperlipidemia Hyperuricemia Other abnormal blood chemistry Gout, unspecified cause, unspecified chronicity, unspecified site Encounter for immunization documented in this encounter Additional Health Concerns Assessment Noted Time PHQ-9 Depression Total Score: 0 12/13/19 24 4:00 PM EDT documented as of this encounter Care Teams Flying Ii Instructor Relationship Specialty Start Date End Date Татьяна Vera MD [address] [place] [id number] PCP - General Family Medicine 12/22/11 Raheem Merida, PharmD [address] [place] [address] Pharmacist Internal Medicine 07/12/23 documented as of this encounter
--- OUTSIDE RECORDS SUMMARY | 2024-03-13 17:42 | XMS_ITS | Encounter Summary ---
Author Organization [employer] Address [address] [facility] 7t [place] [address] Care Team Providers Care Supervisor Coffee Name Role Phone Татьяна Vera MD Primary Care Provider [phone] Raheem Merida PharmD Unavailable [phone] Reason for Visit * Reason Comments Med Refill Encounter Details Date Type Department Care Team ([facility] st Contact Info) Description 03/10/2024 Refill [facility] MEDICINE [address] [place], [place] [phone] Татьяна Vera MD [address] [place], [place] [phone] Type 2 diabetes mellitus with hyperglycemia, without long-term current use of insulin ([facility]) Social History Tobacco Use Types Packs/Day Years [...] as of this encounter Visit Diagnoses Diagnosis Type 2 diabetes mellitus with hyperglycemia, without long-term current use of insulin ([facility]) documented in this encounter Additional Health Concerns Assessment Noted Time PHQ-9 Depression Total Score: 0 12/13/19 24 4:00 PM EDT documented as of this encounter Care Teams Supervisor Coffee Relationship Specialty Start Date End Date Татьяна Vera MD [address] [place] [address] PCP - General Family Medicine 12/22/11 Raheem Merida PharmD [address] [place] [address] Pharmacist Internal Medicine 07/12/23 documented as of this encounter
--- OUTSIDE RECORDS SUMMARY | 2024-03-13 17:42 | XMS_ITS | Encounter Summary ---
Author Organization [employer] Address [address] [place] [address] 7t [place] [address] Care Team Providers Care Dinkey Engine Firer/Fireman Name Role Phone Татьяна Vera MD Primary Care Provider [phone] Raheem Merida PharmD Unavailable [phone] Reason for Visit * Reason Comments Med Refill Encounter Details Date Type Department Care Team ([facility] st Contact Info) Description 04/14/2022 Refill [facility] MEDICINE [address] [place], [place] [phone] Татьяна Vera MD [address] [place], [place] [phone] Social History Tobacco Use Types Packs/Day Years [...] documented as of this encounter Care Teams Dinkey Engine Firer/Fireman Relationship Specialty Start Date End Date Татьяна Vera MD [address] [place], [place] [phone] PCP - General Family Medicine 12/22/11 Raheem Merida, VeronicaD [address] [place] [id number] Pharmacist Internal Medicine 07/12/23 documented as of this encounter
--- OUTSIDE RECORDS SUMMARY | 2024-03-13 17:42 | XMS_ITS | Clinical Summary ---
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 TAKE 1 TABLET ONCE OR TWICE DAILY UNTIL FLARE RESOLVES. 30 tablet 1 11/09/19 23 Active repaglinide (Prandin) 0.5 MG tablet Take 1 tablet (0.5 mg) by mouth before breakfast, before lunch, and before evening meal. 90 tablet 05/24/19 025 Active atorvastatin (Lipitor) 10 MG tabletIndicatio ns:Gout, unspecified cause, unspecified chronicity, unspecified site Take 1 tablet (10 mg) by mouth in the morning. 90 tablet 06/05/19 24 025 Active atenolol (Tenormin) 25 MG tabletIndicatio ns:Essential hypertension take 1 tablet (25MG) by oral route every day 90 tablet 06/05/19 24 Active glucose blood (OneTouch Ultra) test stripIndication s:Type 2 diabetes mellitus with hyperglycemia, without long-term current use of insulin ([facility]) Use to test blood sugar 2 times daily 50 each 07/11/19 24 025 Active OneTouch Delica Lancets 33G miscIndications :Type 2 diabetes mellitus with hyperglycemia, without long-term current use of insulin ([facility]) Use to test blood sugar 2 times daily 100 each 5 07/11/19 24 Active Alcohol Swabs 70 % padsIndications :Type 2 diabetes mellitus with hyperglycemia, without long-term current use of insulin ([facility]) Use to test blood sugar 2 times daily 100 each 5 07/11/19 24 Active Blood Glucose Monitoring Suppl (ONE TOUCH ULTRA 2) w/Device kitIndications: Type 2 diabetes mellitus with hyperglycemia, without long-term current use of insulin ([facility]) Use to test blood sugar 2 times daily 1 kit 07/11/19 24 Active tadalafil (Cialis) 5 MG tablet TAKE 1 TABLET BY MOUTH EVERY DAY IN THE MORNING 30 tablet 3 10/10/19 24 Active lisinopril 5 MG tabletIndicatio ns:Essential hypertension TAKE 1 TABLET BY MOUTH EVERY DAY IN THE MORNING 90 tablet 3 02/20/20 24 Active allopurinol (Zyloprim) 100 MG tabletIndicatio ns:Gout, unspecified cause, unspecified chronicity, unspecified site TAKE 4 TABLETS BY MOUTH EVERY DAY 360 tablet 3 02/20/20 24 Active metFORMIN XR (Glucophage-XR) 500 MG 24 hr tabletIndicatio ns:Type 2 diabetes mellitus with hyperglycemia, without long-term current use of insulin ([facility]) TAKE 2 TABLETS BY MOUTH EVERY 12 HOURS 360 tablet 2 03/13/19 25 Active ibuprofen 800 MG tablet Take 1 tablet (800 mg) by mouth every 8 (eight) hours if needed for fever, headaches or moderate pain. 50 tablet 1 03/13/19 25 Active lisinopril 5 MG tabletIndicatio ns:Essential hypertension TAKE 1 TABLET BY MOUTH EVERY DAY IN THE MORNING 90 tablet 3 02/08/20 23 024 Discontinued metFORMIN XR (Glucophage-XR) 500 MG 24 hr tabletIndicatio ns:Type 2 diabetes mellitus with hyperglycemia, without long-term current use of insulin ([facility]) TAKE 2 TABLETS BY MOUTH EVERY 12 HOURS 360 tablet 2 04/25/19 24 025 Discontinued allopurinol (Zyloprim) 100 MG tabletIndicatio ns:Gout, unspecified cause, unspecified chronicity, unspecified site TAKE 4 TABLETS BY ORAL ROUTE EVERY DAY 360 tablet 1 05/08/11 23 024 Discontinued ibuprofen 800 MG tablet Take 800 mg by mouth every 8 (eight) hours if needed for fever, headaches or moderate pain. 025 Discontinued(Re order (will not trigger notification to Pharmacy)) Active Problems Problem Noted Date Diagnosed Date Closed left ankle fracture 12/13/2023 Assessment & Plan (12/13/2023 5:58 PM EDT): -date of injury 12/07/23 -Nondisplaced fracture of the left medial malleolus. Comminuted essentially nondisplaced fracture of the distal left tibia. -Anticipating surgery soon Osteoarthritis of carpometac arpal (CMC) joint of both thumbs 02/04/2023 Assessment & Plan (09/02/2023 6:51 PM EDT): - received steroid injection in Mar 2022 - seen by Dr. Artis in May 2023 and offered surgical intervention; patient is planning to have a surgery in Dec 2023 Assessment & Plan (06/05/2023 5:18 PM EDT): - received steroid injection in Mar 2022 Assessment & Plan (02/04/2023 11:38 AM EST): - previously followed by Dr. Artis - received steroid injection in Mar 2022 - refer back to Dr. Artis's office Erectile dysfunction 02/04/2023 Assessment & Plan (06/05/2023 5:17 PM EDT): - 01/22/23 Testosterone 329 ng/dL; PSA 0.54 ng/DL - recommended to reduce alcohol intake - prn tadalafil was ineffective - will try tadalafil 5 mg daily - refer to urologist for further evaluation and management Assessment & Plan (02/04/2023 11:41 AM EST): - check testosterone and PSA - recommended to reduce alcohol intake - If normal testosterone and PSA, will try tadalafil Bilateral hand pain 03/12/2022 Assessment & Plan (06/05/2023 5:17 PM EDT): - osteoarthritis in hand joints and tenosynovitis. Possible CTS. Unlikely gout. - previously seen by Dr. Artis, [facility], upcoming appt - activity modification - judicious use of NSAIDs. 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 Possible CTS. Unlikely gout. - previously seen by Dr. Artis, [facility] - refer back to orthopedic providers - activity modification - judicious use of NSAIDs. Type 2 diabetes mellitus 03/09/2022 Assessment & Plan (03/13/2024 4:59 PM EST): -Dx: April 2019 -A1C 6.0% today on 12/12/23 -Continue working on lifestyle modifications. -Improve adherence to self-monitoring glucose: OneTouch glucometer -Continue Metformin ER 1000 mg BID, advise to improve adherence. -Continue repaglinide 0.5 mg tid -Discussed about other medications, but patient declines injectable medication and SGLT-2 inhibitor due to its side effect -Eye: exam on Mar 2023, [facility] - no diabetic retinopathy; mild Glaucoma. More recent exam per pt -Feet: comprehensive exam done on 05/24/23 -Fasting lipid profile: Jan 2023, improved Triglyceride -Microalbumin test: Jan 2023 no microalbuminuria -IZ - Hep B completed. Needs to give PPSV 23 Assessment & Plan (12/13/2023 5:59 PM EDT): -Dx: April 2019 -A1C 6.0% today on 12/12/23 -Continue working on lifestyle modifications. -Improve adherence to self-monitoring glucose: OneTouch glucometer -Continue Metformin ER 1000 mg BID, advise to improve adherence. -Continue repaglinide 0.5 mg tid -Discussed about other medications, but patient declines injectable medication and SGLT-2 inhibitor due to its side effect -Eye: exam on Mar 2023, [facility] - no diabetic retinopathy; mild Glaucoma. More recent exam per pt -Feet: comprehensive exam done on 05/24/23 -Fasting lipid profile: Jan 2023, improved Triglyceride -Microalbumin test: Jan 2023 no microalbuminuria -IZ - Hep B completed. Needs to give PPSV 23 Assessment & Plan (08/30/2023 4:27 PM EDT): -Dx: April 2019 -A1C 6.3% today on 08/30/23 -Continue working on lifestyle modifications. -Improve adherence to self-monitoring glucose: OneTouch glucometer -Continue Metformin ER 1000 mg BID, advise to improve adherence. -Continue repaglinide 0.5 mg tid -Discussed about other medications, but patient declines injectable medication and SGLT-2 inhibitor due to its side effect -Eye: exam on Mar 2023, [facility] - no diabetic retinopathy; mild Glaucoma. More recent exam per pt -Feet: comprehensive exam done on 05/24/23 -Fasting lipid profile: Jan 2023, improved Triglyceride -Microalbumin test: Jan 2023 no microalbuminuria -IZ - Hep B completed. Needs to give PPSV 23 Assessment & Plan (06/05/2023 5:22 PM EDT): -Dx: April 2019 -A1C 11.3% today, significantly worsened from 7.3% -Continue working on lifestyle modifications. -Improve adherence to self-monitoring glucose: OneTouch glucometer -Continue Metformin ER 1000 mg BID, advise to improve adherence. -Add repaglinide 0.5 mg tid -Discussed about other medications, but patient declines injectable medication and SGLT-2 inhibitor due to its side effect -Eye: exam on Mar 2023, [facility] - no diabetic retinopathy; mild Glaucoma. More recent exam per pt -Feet: comprehensive exam done on 05/24/23 -Fasting lipid profile: Jan 2023, improved Triglyceride -Microalbumin test: Jan 2023 no microalbuminuria -IZ - Hep B completed. Needs to give PPSV 23 Assessment & Plan (02/04/2023 11:40 AM EST): -Dx: April 2019 -A1C 7.3% improved from 8.5% on 03/09/22 -Continue working on lifestyle modifications. -Improve adherence to self-monitoring glucose: OneTouch glucometer -Continue Metformin ER 1000 mg BID, advise to improve adherence. -Eye: exam on 04/17/21 - no diabetic retinopathy; mild Glaucoma. More recent exam per pt -Feet: foot exam done 01/17/23 -Fasting lipid profile: 02/19/22 TC 193; TG 409; HDL 48; LDL cannot be calculated -Microalbumin test: 02/19/22 UACR 35 -IZ - Hep B completed. Needs to give PPSV 23 --Follow-up in 3 Months. Assessment & Plan (03/12/2022 6:26 AM EST): -Dx: April 2019 -A1C 10.4% on 05/04/21 -A1C 8.5% on 03/09/22 (pt has been taking metformin 1000 mg daily) -Continue working on lifestyle modifications. -Improve adherence to self-monitoring glucose: OneTouch glucometer -Continue Metformin ER 1000 mg BID, advise to improve adherence. -Eye: exam on 04/17/21 - no diabetic retinopathy; mild Glaucoma. -Feet: foot exam done 05/04/21 -Fasting lipid profile: 02/19/22 TC 193; TG 409; HDL 48; LDL cannot be calculated -Microalbumin test: 02/19/22 UACR 35 -IZ - Hep B completed. Needs to give PPSV 23 --Follow-up in 3 Months. Gout 03/09/2022 Assessment & Plan (03/13/2024 4:59 PM EST): -continue allpurinol as prophylaxis -low-purine diet -reduce alcohol intake Assessment & Plan (06/05/2023 5:25 PM EDT): -continue allpurinol as prophylaxis -low-purine diet -reduce alcohol intake Assessment & Plan (01/17/2023 6:34 AM EST): -continue allpurinol as prophylaxis -low-purine diet -reduce alcohol intake Assessment & Plan (03/09/2022 10:33 AM EST): -continue allpurinol as prophylaxis -low-purine diet -reduce alcohol intake Alcohol use disorder 09/07/2016 01/07/2023 Assessment & Plan (06/05/2023 5:23 PM EDT): - continue working on reducing intake Transaminitis 11/18/2015 Assessment & Plan (09/02/2023 6:52 PM EDT): - update FIB4 index - due to alcohol intake - reduce alcohol intake - monitor closely with statin therapy Assessment & Plan (01/17/2023 6:33 AM EST): - due to alcohol intake - 02/19/22 AST 101; ALT 110 - reduce alcohol intake - monitor closely with statin therapy Assessment & Plan (03/12/2022 6:32 AM EST): - due to alcohol intake - 02/19/22 AST 101; ALT 110 - reduce alcohol intake - monitor closely with statin therapy Radial styloid tenosynovitis 06/26/2015 Assessment & Plan (03/12/2022 6:21 AM EST): - previously received steroid injection, 2019 - refer back to hand specialist - informed that steroid can increase glucose level Dupuytren's contracture 12/30/2014 Assessment & Plan (06/05/2023 5:18 PM EDT): - upcoming appointment with Dr. Artis Assessment & Plan (01/17/2023 6:33 AM EST): - previously seen by Dr. Artis - no treatment indicated at that time - refer back to hand specialist Assessment & Plan (03/12/2022 6:19 AM EST): - previously seen by Dr. Artis - no treatment indicated at that time - refer back to hand specialist Essential hypertension 12/30/2014 Assessment & Plan (03/13/2024 4:58 PM EST): Goal BP < 140/90 per JNC-8; < 130/80 per ACC/AHA guideline Continue lifestyle modifications. Decrease lisinopril to 5 mg daily. Continue atenolol 25mg daily. Continue working on lifestyle modifications Continue working on reduction of alcohol consumption Continue checking home BP --Follow-up in 3 Months. Assessment & Plan (12/13/2023 5:55 PM EDT): Goal BP < 140/90 per JNC-8; < 130/80 per ACC/AHA guideline Continue lifestyle modifications. Decrease lisinopril to 5 mg daily. Continue atenolol 25mg daily. Continue working on lifestyle modifications Continue working on reduction of alcohol consumption Continue checking home BP --Follow-up in 3 Months. Assessment & Plan (08/30/2023 4:25 PM EDT): Goal BP < 140/90 per JNC-8; < 130/80 per ACC/AHA guideline Continue lifestyle modifications. Decrease lisinopril to 5 mg daily. Continue atenolol 25mg daily. Continue working on lifestyle modifications Continue working on reduction of alcohol consumption Continue checking home BP --Follow-up in 3 Months. Assessment & Plan (06/05/2023 5:29 PM EDT): Goal BP < 140/90 per JNC-8; < 130/80 per ACC/AHA guideline Continue lifestyle modifications. Decrease lisinopril to 5 mg daily. Continue atenolol 25mg daily. Continue working on lifestyle modifications Continue working on reduction of alcohol consumption Continue checking home BP --Follow-up in 3 Months. Assessment & Plan (01/17/2023 6:32 AM EST): Goal BP < 140/90 per JNC-8; < 130/80 per ACC/AHA guideline Continue lifestyle modifications. Decrease lisinopril to 5 mg daily. Continue atenolol 25mg daily. Continue working on lifestyle modifications Continue working on reduction of alcohol consumption Continue checking home BP --Follow-up in 3 Months. Assessment & Plan (03/12/2022 6:22 AM EST): Goal BP < 140/90 per JNC-8; < 130/80 per ACC/AHA guideline Continue lifestyle modifications. Decrease lisinopril to 5 mg daily. Continue atenolol 25mg daily. Continue working on lifestyle modifications Continue working on reduction of alcohol consumption Continue checking home BP --Follow-up in 3 Months. Metabolic dysfunction-associ ated steatotic liver disease and increased alcohol intake (MetALD) 05/09/2013 01/07/2023 Assessment & Plan (03/13/2024 4:59 PM EST): - Last liver test: 09/22/23 - Last US / elastography 09/22/23. Shear wave liver elastography median stiffness is 2.10 m/s, suggestive of compensated advanced liver disease - FIB4 index 2.20, intermediate - GI: [facility], last seen in April 2019 - continue working on lifestyle modifications - continue surveillance study -patient stopped drinking for 6wks and was supposed to recheck lab. However, the plan was interrupted by Covid-19. Will check next appt with GI. -continue reducing EtOH consumption. -previously tried Hydroxyzine to help cravings, anxiety. Assessment & Plan (12/13/2023 6:09 PM EDT): - Last liver test: 09/22/23 - Last US / elastography 09/22/23. Shear wave liver elastography median stiffness is 2.10 m/s, suggestive of compensated advanced liver disease - FIB4 index 2.20, intermediate - GI: [facility], last seen in April 2019 - continue working on lifestyle modifications - continue surveillance study -patient stopped drinking for 6wks and was supposed to recheck lab. However, the plan was interrupted by Covid-19. Will check next appt with GI. -continue reducing EtOH consumption. -previously tried Hydroxyzine to help cravings, anxiety. Assessment & Plan (09/02/2023 6:56 PM EDT): -Abd US on 11/06/18. Fatty infiltration or hepatocellular disease. -seen by GI in 04/2019 -patient stopped drinking for 6wks and was supposed to recheck lab. However, the plan was interrupted by Covid-19. Will check next appt with GI. -continue reducing EtOH consumption. -continue Hydroxyzine to help cravings, anxiety. Assessment & Plan (08/29/2023 12:03 PM EDT): >>ASSESSMENT AND PLAN FOR ALCOHOLIC FATTY LIVER WRITTEN ON 03/09/2022 10:32 AM BY TOVA VERA MD -[facility] on 11/06/18. Fatty infiltration or hepatocellular disease. -seen by GI in 04/2019 -patient stopped drinking for 6wks and was supposed to recheck lab. However, the plan was interrupted by Covid-19. Will check next appt with GI. -continue reducing EtOH consumption. -continue Hydroxyzine to help cravings, anxiety. Assessment & Plan (08/29/2023 12:03 PM EDT): >>ASSESSMENT AND PLAN FOR ALCOHOLIC FATTY LIVER WRITTEN ON 01/17/2023 6:35 AM BY TOVA VERA MD -[facility] on 11/06/18. Fatty infiltration or hepatocellular disease. -seen by GI in 04/2019 -patient stopped drinking for 6wks and was supposed to recheck lab. However, the plan was interrupted by Covid-19. Will check next appt with GI. -continue reducing EtOH consumption. -continue Hydroxyzine to help cravings, anxiety. Assessment & Plan (08/29/2023 12:03 PM EDT): >>ASSESSMENT AND PLAN FOR ALCOHOLIC FATTY LIVER WRITTEN ON 06/05/2023 5:25 PM BY TOVA VERA MD -[facility] on 11/06/18. Fatty infiltration or hepatocellular disease. -seen by GI in 04/2019 -patient stopped drinking for 6wks and was supposed to recheck lab. However, the plan was interrupted by Covid-19. Will check next appt with GI. -continue reducing EtOH consumption. -continue Hydroxyzine to help cravings, anxiety. Hyperuricemia 01/23/2013 Assessment & Plan (03/13/2024 4:59 PM EST): -02/19/22 Uric acid 5.8 - continue allopurinol - reduce alcohol intake Assessment & Plan (06/05/2023 5:25 PM EDT): -02/19/22 Uric acid 5.8 - continue allopurinol - reduce alcohol intake Assessment & Plan (01/17/2023 6:34 AM EST): -02/19/22 Uric acid 5.8 - continue allopurinol - reduce alcohol intake Assessment & Plan (03/12/2022 6:28 AM EST): -02/19/22 Uric acid 5.8 - continue allopurinol - reduce alcohol intake Mixed hyperlipidemia 09/28/2011 Assessment & Plan (03/13/2024 4:59 PM EST): - last lipid profile in Jan 2023 showed improvement in Triglyceride - current medication: atorvastatin 10 mg at bedtime, repeat liver function test and lipid profile in 3 mo - he does not take statin when he drinks alcohol - continue working on lifestyle modifications Assessment & Plan (09/02/2023 6:56 PM EDT): - last lipid profile in Jan 2023 showed improvement in Triglyceride - current medication: atorvastatin 10 mg at bedtime, repeat liver function test and lipid profile in 3 mo - he does not take statin when he drinks alcohol - continue working on lifestyle modifications Assessment & Plan (06/05/2023 5:26 PM EDT): - last lipid profile in Jan 2023 showed improvement in Triglyceride - current medication: atorvastatin 10 mg at bedtime, repeat liver function test and lipid profile in 3 mo - he does not take statin when he drinks alcohol - continue working on lifestyle modifications Assessment & Plan (01/17/2023 6:34 AM EST): - 02/19/22 TC 193; TG 409; HDL 48; LDL cannot be calculated due to high TG - current medication: Simvastatin 40 mg at bedtime; omega 3 - moderate intensity statin therapy is recommended - switch simvastatin to atorvastatin 10 mg at bedtime, repeat liver function test and lipid profile in 3 mo - he does not take statin when he drinks alcohol - continue working on lifestyle modifications Assessment & Plan (03/12/2022 6:31 AM EST): - 02/19/22 TC 193; TG 409; HDL 48; LDL cannot be calculated due to high TG - current medication: Simvastatin 40 mg at bedtime; omega 3 - moderate intensity statin therapy is recommended - switch simvastatin to atorvastatin 10 mg at bedtime, repeat liver function test and lipid profile in 3 mo - he does not take statin when he drinks alcohol - continue working on lifestyle modifications Contracture of palmar fascia 09/28/2011 Encounters Date Type Department Care Team Description 03/13/2024 3:15 PM EST Office Visit [facility] [address] [place] [address] Tova Vera MD Type 2 diabetes mellitus with hyperglycemia, without long-term current use of insulin (CMS/HCC) (Primary Dx); Metabolic dysfunction-associated steatotic liver disease and increased alcohol intake (MetALD); Essential hypertension; Mixed hyperlipidemia; Hyperuricemia; Gout, unspecified cause, unspecified chronicity, unspecified site; Encounter for immunization 03/13/2024 Travel 03/10/2024 Refill [facility] [address] [place] [address] Tova Vera MD Type 2 diabetes mellitus with hyperglycemia, without long-term current use of insulin (CMS/HCC) 03/09/2024 Telephone [facility] [address] [place] [address] Lisseth Riley MA chart prep 02/19/2024 Refill [facility] [address] [place] [address] Tova Vera MD Essential hypertension; Gout, unspecified cause, unspecified chronicity, unspecified site 12/13/2023 3:30 PM EDT Office Visit [facility] [address] [place] [address] Tova Vera MD Type 2 diabetes mellitus with hyperglycemia, without long-term current use of insulin (CMS/HCC) (Primary Dx); Essential hypertension; Metabolic dysfunction-associated steatotic liver disease and increased alcohol intake (MetALD); Closed fracture of left ankle, initial encounter; Dietary counseling; Exercise counseling; Overweight 12/13/2023 Travel from Last 3 Months Immunizations Name Administration Dates Next Due Hep B, adult 01/23/2013, 8,12/26/2006,2006 Influenza injectable quadriv alent IIV4 with preservative 12/06/2017,03/08/2017,11/18/2015,2014 Influenza injectable quadriv alent preservative free 01/17/2023,03/09/2022,12/20/2020,2018 Influenza, IIV3, injectable 11/14/2013, 0 Influenza, Split (incl. ginger fied surface antigen) 01/23/2013 Influenza, seasonal, injecta ble, preservative free 03/13/2024 Moderna Covid-19 Vaccine 12+ 08/08/2023( Deferred: Patient Refused - Feels ineffective) Pneumococcal Conjugate PCV 20 01/17/2023 Tdap 07/25/2020,05/09/2013 Zoster, Recombinant 08/08/2023(Deferred: Patient Refused - Vaccine fatigue) Social History Tobacco Use Types Packs/Day Years Used Date Smoking Tobacco: Never Passive Smoke Exposure: Never Smokeless Tobacco: Never Tobacco Cessation:Counseling Given: Not Answered Alcohol Answer Date Recorded Frequency of Alcohol [...] Orientation Straight 12/21/2021 10 :16 AM EDT Last Filed Vital Signs Vital Sign Reading Time Taken Comments Blood Pressure 121/76 03/13/2024 3:23 PM EST Pulse 84 03/13/2024 3:23 PM EST Temperature 36.2 ??C (97.1 ??F) 03/13/2024 3:23 PM ES T Respiratory Rate 17 03/13/2024 3:23 PM EST Oxygen Saturation 98% 03/13/2024 3:23 PM EST Inhaled Oxygen Concentration - - Weight 79 kg (174 lb 3.2 oz) 05/24/2023 3:56 PM EDT Height 172.2 cm (5' 7.79 ) 01/17/2023 3:25 PM ES T Body Mass Index 26.65 01/17/2023 3:25 PM EST Plan of Treatment Health Maintenance Due Date Last Done Comments CT Colonography 1965 FIT DNA/Cologuard 1965 FIT 1965 FOBT 1965 Sigmoidoscopy 1965 Hepatitis A Vaccines (1 of 2 - Risk 2-dose series) 01/07/1984 Zoster Vaccines (1 of 2) 2015 COVID-19 Vaccine ( season) 2023 02/10/2022, 02/26/2021, 06/02/2020, Additional history exists Diabetes: Urine Protein Screening 01/23/2024 01/22/2023, 02/19/2022, 06/28/2020 Diabetes: Foot Exam 05/23/2024 05/24/2023, 05/24/2023, 05/24/2023, Additional history exists Diabetes: Hemoglobin A1C 06/11/2024 025, 12/13/2023, 08/30/2023, Additional history exists Alcohol/Substance Use Screening 08/29/2024 08/30/2023 SDOH Screening 08/29/2024 08/30/2023 Lipid Panel 09/21/2024 09/22/2023, 1203/2022, 02/19/2022, Additional history exists Depression Screening 12/12/2024 12/13/2023, 12/13/19 Tobacco Screening 03/13/2025 03/13/2024 Eye Exam 04/13/2025 04/13/2023 Colonoscopy 08/07/2025 08/08/2015 Colorectal Cancer Screening 08/07/2025 DTaP/Tdap/Td Vaccines (3 - Td or Tdap) 07/25/2030 07/25/2020, 05/09/2013 RSV Patients and Patients Aged 60 years or older (1 - 1-dose 75+ series) 01/07/2040 Hepatitis B Vaccines Completed 01/23/2013, 04/24/2007, 12/26/2006, Additional history exists Pneumococcal Vaccine: Pediatrics (0 to 5 Years) and At-Risk Patients (6 to 64 Years) Completed 01/17/2023 HIV Screening Completed 09/22/2023 Hepatitis C Screening Completed 09/22/2023 Influenza Vaccine Completed 03/13/2024, , 03/09/2022, Additional history exists HIB Vaccines Aged Out No longer eligi ble based on patient's age to complete this topic HPV Vaccines Aged Out No longer eligi ble based on patient's age to complete this topic IPV Vaccines Aged Out No longer eligi ble based on patient's age to complete this topic Meningococcal Vaccine Aged Out No augustina deanne eligible based on patient's age to complete this topic RSV under 20 months Aged Out No longe r eligible based on patient's age to complete this topic Rotavirus Vaccines Aged Out No longer eligible based on patient's age to complete this topic Goals Goal Patient Goal Type Associated Problems Recent Progress Patient-Stated? Author Blood Pressure < 140/90 Blood Pressure 121/76(2024 3:23 PM EST) No Raheem Merida, Varun Hemoglobin A1c < 7 Result Component 7.5( 3:26 PM EST) No Raheem Merida, Varun Procedures Procedure Name Priority Date/Time Associated Diagnosis Comments POCT GLYCOSYLATED HEMOGLOBIN (HGB A1C) Routine 03/13/2024 3:26 PM EST Type 2 diabetes mellitus with hyperglycemia, without long-term current use of insulin (CMS/HCC) POCT GLUCOSE Routine 03/13/2024 3:26 PM EST Type 2 diabetes mellitus with hyperglycemia, without long-term current use of insulin (CMS/HCC) POCT GLUCOSE Routine 12/13/2023 4:02 PM EDT Type 2 diabetes mellitus with hyperglycemia, without long-term current use of insulin (CMS/HCC) POCT GLYCATED HEMOGLOBIN, TOTAL Routine 12/13/2023 4:01 PM EDT Type 2 diabetes mellitus with hyperglycemia, without long-term current use of insulin (CMS/HCC) HEPATITIS C AB W/REFL TO HCV RNA, QN, PCR Routine 09/22/2023 10:31 AM EDT Transaminitis HIV 1/2 ANTIGEN/ANTIBODY, FOURTH GENERATION W/RFL Routine 09/22/2023 10:31 AM EDT Transaminitis LIPID PANEL WITH REFLEX TO DIRECT LDL Routine 09/22/2023 10:31 AM EDT Essential hypertension Type 2 diabetes mellitus with hyperglycemia, without long-term current use of insulin (CMS/HCC) ALBUMIN, RANDOM URINE W/CREATININE Routine 01/22/2023 12:00 AM EST Type 2 diabetes mellitus with hyperglycemia, without long-term current use of insulin (CMS/HCC) HM COLONOSCOPY Routine 08/08/2015 from Last 3 Months or Most Recently Relevant to Health Maintenance Results * (ABNORMAL) POCT glycosylated hemoglobin (Hgb A1c) (03/13/2024 3:26 PM EST) Hemoglobin A1C 7.5(A) 4.0 - 6.0 % QC Media Lot # [id number] Lot# Expiration Date 918,326 Blood Capillary blood specimen / Unknown 03/13/2024 3:26 PM EST us Tova Vera MD POINT OF CARE TEST ENTER/EDIT OR DERABLES Final Result * POCT glucose manually resulted (03/13/2024 3:26 PM EST) Only the most recent of2 resultswithin the time period is included. Glucose Blood, POC 130 60 - 200 mg/dL QC Media Lot # [id number] Lot# Expiration Date 025 Blood Capillary blood specimen / Unknown 03/13/2024 3:26 PM EST Tova Vera MD POINT OF CARE TEST ENTER/EDIT OR DERABLES Final Result * POCT HGB A1C (12/13/2023 4:01 PM EDT) Hemoglobin A1C 6.0 4.0 - 6.0 % QC Media Lot # [id number] Lot# Expiration Date Blood 12/13/2023 4:01 PM EDT us Tova Vera MD POINT OF CARE TEST ENTER/EDIT OR DERABLES Final Result * (ABNORMAL) Lipid Panel with Reflex to Direct LDL (09/22/2023 10:31 AM EDT) Triglycerides 178(H) <150 mg/dL [facility] Comment:Desirable Triglyceri de: less than 150 mg/dLBorderline High Triglyceride 150-199 mg/dLHigh Triglyceride: 200-499 mg/dLVery High Triglyceride: greater than or equal to 5OO mg/dL Cholesterol 204(H) <200 mg/dL [facility] Comment:Desirable Cholestero l: less than 200 mg/dLBorderline High Cholesterol: 200-239 mg/dLHigh Cholesterol: greater than 239 mg/dL LDL Cholesterol Calculated 111(H) <100 mg/dL [facility] Comment:Desirable LDL: less than 100 mg/dLNear Optimal/Above Optimal LDL: 110- 129 mg/dLBorderline High LDL: 130-159 mg/dLHigh LDL: 160-189 mg/dLVery High LDL: greater than or equal to 190 mg/dL HDL Cholesterol 58 >40 mg/dL [facility] Comment:Desirable HDL: great er than 40 mg/dL Note: This HDL assay may give artificially low results in patients with liver disease. Blood 09/22/2023 10:3 1 AM EDT 09/22/2023 10:31 AM EDT Tova Vera MD LAB BLOOD ORDERABLES Final Resul t Performing Organization Address [facility] Co de Phone Number [facility] [address] [place] [phone] * Hepatitis C Antibody with Reflex to HCV, RNA, Quantitative, Real-Time PCR (09/22/2023 10:31 AM EDT) Hepatitis C Antibody Nonreactive Nonreactive [facility] Comment:Antibodies to HCV no t detected; does not exclude early acuteHCV infection. Blood Venous blood specimen / Unknown 09/22/2023 10:31 AM EDT 09/22/2023 10:31 AM EDT Tova Vera MD LAB BLOOD ORDERABLES Final Resul t Performing Organization Address [facility] Co de Phone Number [facility] [address] [place] [phone] * HIV-1/2 Antigen and Antibodies, Fourth Generation, with Reflexes (09/22/2023 10:31 AM EDT) HIV AB/AG Nonreactive Nonreactive [facility] Comment:HIV-1 p24 Ag and/or HIV-1/HIV-2 Ab not detected.A test result that is nonreactive does not exclude thepossibility of exposure to or infection with HIV-1 and/orHIV-2. Nonreactive results in this assay for individualswith prior exposure to HIV-1 and/or HIV-2 may be due toantigen and antibody levels that are below the limit ofdetection of this assay.The [employer] HIV Ag/Ab Combo assay result andsupplemental assay results should be interpreted inconjunction with the patient's clinical presentation,history and other laboratory results. If the results areinconsistent with clinical evidence, additional testing issuggested to confirm the result. Blood Venous blood specimen / Unknown 09/22/2023 10:31 AM EDT 09/22/2023 10:31 AM EDT Tova Vera MD LAB BLOOD ORDERABLES Final Resul t Performing Organization Address [facility] Co de Phone Number [facility] [address] [place] [address] [phone] * Albumin, Random Urine W/Creatinine (01/22/2023 12:00 AM EST) Creatinine, Urine 208.19 mg/dL [facility] Microalbumin Urine 35.0 mg/L [facility] Microalbum Creatinine Ratio Ur 16.8 <30 ug/mg cr [facility] Comment:Albumin/Creatinine R atio Reference Ranges: Normal: < 30 ug/mg creatinine Microalbuminuria: 30 - 300 ug/mg creatinineClinical Albuminuria: > 300 ug/mg creatinine Urine 01/22/2023 01/22/2023 Tova Vera MD LAB URINE ORDERABLES Final Resul t Performing Organization Address [facility] Co de Phone Number [facility] [address] [place] [phone] * Hm Colonoscopy (08/08/2015) Colonoscopy Normal Normal Tova Vera MD HEALTH MAINTENANCE Edited Result - Final from Last 3 Months or Most Recently Relevant to Health Maintenance Insurance , [address] [address] Care Teams Towboat Engineer Relationship Specialty Start Date End Date Tova Vera MD [address] [place] [phone] PCP - General Family Medicine 12/22/11 Raheem Merida, VeronicaD [address] [place] [address] Pharmacist Internal Medicine 07/12/23
--- OUTSIDE RECORDS SUMMARY | 2024-03-13 17:42 | XMS_ITS | Encounter Summary ---
Author Organization [employer] Address [address] [facility] [address] [place] [address] Care Team Providers Care Hydraulic Corrugating Machine Operator Name Role Phone Татьяна Vera MD Primary Care Provider [phone] Raheem Merida PharmD Unavailable [phone] Encounter Details Date Type Department Care Team (Latest Contact Info) Description 03/13/2024 Travel Social History Tobacco Use Types Packs/Day Years [...] documented as of this encounter Care Teams Hydraulic Corrugating Machine Operator Relationship Specialty Start Date End Date Татьяна Vera MD [address] [place] [address] PCP - General Family Medicine 12/22/11 Raheem Merida PharmD [address] [place] [address] Pharmacist Internal Medicine 07/12/23 documented as of this encounter
--- OUTSIDE RECORDS SUMMARY | 2024-03-13 17:43 | XMS_ITS | Encounter Summary ---
Author Organization [facility] Address [address] [place] [address] Care Team Providers Care Emd Teacher Name Role Phone Татьяна Vera MD Primary Care Provider [phone] Reason for Referral * Consultation (Routine) - Authorized Specialty Diagnoses / Procedures Referred By Mckenna tan Referred To Contact Physical Therapy Diagnoses Postoperative state Jer Kinsey DPM [address] [address] Referral ID Status Reason Start Date Expiration Date Visits Requested Visits Authorized [id number] Authorized Consult and Treat 02/14/2024 02/13/2025 25 25 Reason for Visit * Reason Comments Post-op post ORIF pilon and medial malleolus left ankle. Encounter Details Date Type Department Care Team (Latest Contact Info) Description 02/14/2024 8:30 AM EST Office Visit Orthopedic Surgery [place] [phone] [phone] Jer Kinsey DPM [address] [address] Postoperative state (Primary Dx) Social History Tobacco Use Types Packs/Day Years Used Date Smoking Tobacco: Never Assessed Sex and Gender Information Value Date Recorded Sex Assigned at Not on file Gender Identity Not on file Sexual Orientation Not on file Job Start Date Occupation Industry Not on file Not on file Not on file documented as of this encounter Last Filed Vital Signs Vital Sign Reading Time Taken Comments Blood Pressure - - Pulse - - Temperature - - Respiratory Rate - - Oxygen Saturation - - Inhaled Oxygen Concentration - - Weight 81.6 kg (180 lb) 02/14/2024 8:41 AM EST Height 167.6 cm (5' 5.98 ) 02/14/2024 8:41 AM ES T Body Mass Index 29.07 02/14/2024 8:41 AM EST documented in this encounter Ordered Prescriptions Prescription Sig Dispensed Refills Start Date End Da te traMADoL (ULTRAM) 50 mg tablet Take 1 tablet (50 mg total) by mouth every 6 (six) hours if needed (Moderate to severe pain) for up to 7 days. Max Daily Amount: 200 mg 28 tablet 02/14/2024 02/21/2024 documented in this encounter Progress Notes * Jer Kinsey DPM - 02/14/2024 8:30 AM EST IDENTIFIER: @TITLE@ Andres Stevens is a 59 y.o. year old male who presents for consultation. CC: Pain left ankle and itchiness HPI: 58-year-old male returns office 8 weeks status post ORIF pilon and medial malleolus left ankle. Patient notes that he continues to feel some tingling and numbness to the plantar aspect of the medial foot. Patient is staying nonweightbearing in the cam boot. Patient is using compression bandage. Patient notes his pain has been well-controlled patient notes that he continues to have some pain at night causing difficulty in sleeping. ROS: GENERAL: Pt denies nausea, fever, vomiting, chills, or shortness of breath. Pt in NAD. CARDIOLOGY: pt denies chest pain, palpitations LUNGS: pt denies shortness of breath MUSCULOSKELETAL: See HPI, otherwise no joint pain or swelling, back pain, or muscle pain. SKIN: see HPI, otherwise no lesions, rash or itching NEURO: No persistent headache, weakness or numbness The remainder of the review of systems is noncontributory PAST MEDICAL HISTORY: Patient Active Problem List Diagnosis Arthritis of carpometacarpal (CMC) joint of both thumbs SOCIAL HISTORY: Social History Tobacco Use Smoking status: Not on file Smokeless tobacco: Not on file Substance Use Topics Alcohol use: Not on file ACTIVE MEDICATIONS: Outpatient Medications Marked as Taking for the 02/14/24 encounter (Office Visit) with Jer Kinsey DPM Medication Sig Dispense Refill acetaminophen (TYLENOL) 325 mg tablet Take 1 Tablet by mouth every 6 hours as needed for Pain (mildto moderate pain) for up to 20 days. - Oral allopurinoL (ZYLOPRIM) 100 mg tablet Take 1 tablet (100 mg total) by mouth 1 (one) time each day. atenoloL (TENORMIN) 25 mg tablet Take 1 tablet (25 mg total) by mouth 1 (one) time each day. colchicine (COLCRYS) 0.6 mg tablet Take 1 tablet (0.6 mg total) by mouth 1 (one) time each day. ibuprofen (ADVIL,MOTRIN) 800 mg tablet Take 1 Tablet by mouth every 8 hours for 20 days. - Oral indomethacin (INDOCIN) 25 mg capsule Take 1 Capsule by mouth 2 times daily (with meals). lisinopriL (PRINIVIL,ZESTRIL) 10 mg tablet Take 1 tablet (10 mg total) by mouth 1 (one) time each day. metFORMIN (GLUCOPHAGE) 500 mg tablet Take 2 Tablets by mouth 2 times daily (with meals). oxyCODONE (ROXICODONE) 5 mg immediate release tablet Take one tablet every 6 hours as needed for pain simvastatin (ZOCOR) 40 mg tablet Take 1 Tablet by mouth at bedtime. ALLERGIES: @ALL@ PHYSICAL EXAM: Height 1.676 m (65.98 ), weight 81.6 kg (180 lb). PODIATRIC EXAMINATION: GENERAL: Patient appears well nourished, with NAD. VASCULAR: Dorsalis pedis pulses are 2/4 bilaterally and Posterior tibial pulses are 2/4 bilaterally. Capillary filling time within normal limits the digits. No pallor on elevation or rubor on dependency. Positive hair growth. No varicosities. Denies rest pain or claudication pain. NEUROLOGICAL: Sharp/dull sensation intact, protective sensation intact 10/10 with 5.07 semmes rene bilaterally, vibratory sensation with tuning fork intact to the tibial tuberosity. ORTHOPEDIC: Good muscle strength 5/5 of all flexors and extensors. Dorsi flexion of ankle ,10 degrees, plantar flexion WNL. No muscle atrophy. Some continued pain to the medial aspect of the left ankle DERMATOLOGICAL:.Annular scaling is resolved to the left foot. Incision sites have healed BIOMECHANICS: STJ ROM wnl, MTJ ROM wnl, 1st MPJ ROM wnl. IMAGING: Correction is maintained in good rectus alignment. Normal postoperative healing. Appears to be good trabeculation across the fracture sites IMPRESSION: 1. Postoperative state PLAN: Pt was seen and examined, history reviewed. Patient is now s/p left ankle ORIF Patient has done well throughout this postoperative period. There is no evidence of weightbearing on the cam boot Patient does not require dressing at this time. Incisions of healed Patient instructed to start weightbearing and transferring in the cam boot Physical therapy order placed for left ankle Patient has having some pain at night making it difficult to sleep. Patient was placed on tramadol 50 mg as needed for moderate to severe pain Patient return after physical therapy is completed Jer Kinsey DPM documented in this encounter Plan of Treatment Upcoming Encounters Date Type Department Care Team (Late st Contact Info) Description 03/14/2024 4:00 PM EST Treatment [facility] [address] [phone] Gogo Doherty, PT 03/20/2024 4:00 PM EST Treatment [facility] [address] [phone] Gogo Doherty, PT 03/22/2024 4:00 PM EST Treatment [facility] [address] [phone] Ousmane Hi, AIRCRAFT ENGINEER 03/28/2024 4:00 PM EST Treatment [facility] [address] [phone] Jacques Ballesteros, PT [address] [place] [address] 04/04/2024 4:00 PM EST Treatment [facility] [address] [phone] Mark Calzada, AIRCRAFT ENGINEER 04/09/2024 4:00 PM EST Treatment [facility] [address] [phone] Ousmane Hi, AIRCRAFT ENGINEER 04/11/2024 4:00 PM EST Treatment [facility] [address] [phone] Jacques Ballesteros, PT 175 [place] [address] 05/01/2024 1:00 PM EDT Office Visit Orthopedic Surgery [place] [address] [phone] Jer Kinsey, DPM [address] [address] Scheduled Referrals Name Type Priority Associated Diagnoses Order Schedule Ambulatory referral to Physical Therapy and Athletic Training Outpatient Referral Routine Postoperative state 1 Occurrences starting 02/14/2024 until 02/13/2025 documented as of this encounter Visit Diagnoses Diagnosis Postoperative state- Primary Other postprocedural status documented in this encounter Care Teams Emd Teacher Relationship Specialty Start Date End Date Татьяна Vera MD [address] [place] [phone] PCP - General 02/07/23 documented as of this encounter
--- OUTSIDE RECORDS SUMMARY | 2024-03-13 17:43 | XMS_ITS | Encounter Summary ---
Author Organization [employer] Address [address] [place] [address] Care Team Providers Care Minor League Baseball Player Name Role Phone Татьяна Vera MD Primary Care Provider [phone] Reason for Visit * Reason Comments Post-op Encounter Details Date Type Department Care Team ([facility] st Contact Info) Description 02/28/2024 1:00 PM EST Office Visit Orthopedic Surgery - [place] [address] [phone] Jer Kinsey DPM [address] [address] Post-operative state (Primary Dx) Social History Tobacco Use [...] - - Weight 81.6 kg (180 lb) 02/28/2024 1:09 PM EST Height - - Body Mass Index 29.07 02/14/2024 8:41 AM EST documented in this encounter Progress Notes * Jer Kinsey DPM - 02/28/2024 1:00 PM EST IDENTIFIER: @TITLE@ Andres Stevens is a 59 y.o. year old male who presents for consultation. CC: Pain left ankle and itchiness HPI: 58-year-old male returns office in weeks status post ORIF pilon and medial malleolus left ankle. Patient notes his pain is gone down tremendously and has been ambulating in the cam boot regularly. Patient is happy with the progress he is making. Patient has not contacted the physical therapy. Patient is here for evaluation treatment ROS: GENERAL: Pt denies nausea, fever, vomiting, [...] Alcohol use: Not on file ACTIVE MEDICATIONS: No outpatient medications have been marked as taking for the 02/28/24 encounter (Office Visit) with Jer Kinsey DPM. ALLERGIES: @ALL@ PHYSICAL EXAM: Weight 81.6 kg (180 lb). PODIATRIC EXAMINATION: GENERAL: [...] degrees, plantar flexion WNL. No muscle atrophy. Continued pain at the medial malleolus. No pain on the anterior aspect of the left ankle. No tingling sensation in the left foot DERMATOLOGICAL:.Annular scaling is resolved to the left foot. Incision sites have healed BIOMECHANICS: STJ ROM wnl, MTJ ROM wnl, 1st MPJ ROM wnl. IMAGING: Correction is maintained in good rectus alignment. Normal postoperative healing. Some concern for continued radiolucency over the medial malleolus without change in position since previous x-ray IMPRESSION: 1. Post-operative state PLAN: Pt was seen and examined, history reviewed. Patient is now s/p left ankle ORIF Patient has done well throughout this postoperative period. Patient does not require dressing at this time. Incisions of healed Patient has been ambulating in a cam boot without difficulty. Patient instructed to follow-up with physical therapy so he can start weaning out of cam boot to a sneaker Patient return after physical therapy is completed Jer Kinsey DPM documented in this encounter Plan of Treatment Upcoming Encounters Date Type Department Care Team (Late st Contact Info) Description 03/14/2024 4:00 PM EST Treatment [facility] [address] [phone] Gogo Doherty, PT 03/20/2024 4:00 PM EST Treatment [facility] [address] [phone] Gogo Doherty, PT 03/22/2024 4:00 PM EST Treatment [facility] [address] [phone] Ousmane Hi, BIOLOGIST AIDE 03/28/2024 4:00 PM EST Treatment [facility] [address] [phone] Jacques Ballesteros, PT 175 [place] [address] 04/04/2024 4:00 PM EST Treatment [facility] [address] [phone] Mark Calzada, BIOLOGIST AIDE 04/09/2024 4:00 PM EST Treatment [facility] [address] [phone] Ousmane Hi, BIOLOGIST AIDE 04/11/2024 4:00 PM EST Treatment [facility] [place] 175 [facility] [address] [place] [phone] Jacques Ballesteros, PT 175 [place] [address] 05/01/2024 1:00 PM EDT Office Visit Orthopedic Surgery - [place] [address] 175 [facility] [address] [place] [phone] Jer Kinsey DPM [address] [address] documented as of this encounter Results * XR Ankle 3+ Views Left (02/28/2024 1:03 PM EST) Anatomical Region Laterality Modality Lower Extremities, Ankle Left Compute d Radiography Narrative 03/06/2024 8:21 PM EST Left ankle 3 views nonweightbearing: Adequate reduction from pilon fracture. ??Hardware is remained intact. ??Some radiolucency remains at the distal medial malleolus fragment. ??Adequate distance in the ankle mortise. Jer Kinsey DPM IMG XR PROCEDURES documented in this encounter Visit Diagnoses Diagnosis Post-operative state- Primary Other postprocedural status documented in this encounter Care Teams Minor League Baseball Player Relationship Specialty Start Date End Date Татьяна Vera MD [address] [place] [phone] PCP - General 02/07/23 documented as of this encounter
--- OUTSIDE RECORDS SUMMARY | 2024-03-13 17:43 | XMS_ITS | Clinical Summary ---
Author Organization [address] [place] [address] Address [address] [place] [address] Phone Care Team Providers Care Mounter Automatic Name Role Phone Татьяна Vera MD Primary Care Provider [phone] Allergies No known active allergies Medications Medication Sig Dispensed Refills Start Date End Date Status lisinopriL (PRINIVIL,ZESTRIL) 10 mg tablet Take 1 tablet (10 mg total) by mouth 1 (one) time each day. Active atenoloL (TENORMIN) 25 mg tablet Take 1 tablet (25 mg total) by mouth 1 (one) time each day. Active simvastatin (ZOCOR) 40 mg tablet Take 1 Tablet by mouth at bedtime. Active colchicine (COLCRYS) 0.6 mg tablet Take 1 tablet (0.6 mg total) by mouth 1 (one) time each day. Active indomethacin (INDOCIN) 25 mg capsule Take 1 Capsule by mouth 2 times daily (with meals). Active metFORMIN (GLUCOPHAGE) 500 mg tablet Take 2 Tablets by mouth 2 times daily (with meals). Active allopurinoL (ZYLOPRIM) 100 mg tablet Take 1 tablet (100 mg total) by mouth 1 (one) time each day. Active oxyCODONE (ROXICODONE) 5 mg immediate release tablet Take one tablet every 6 hours as needed for pain Active ibuprofen (ADVIL,MOTRIN) 800 mg tablet Take 1 Tablet by mouth every 8 hours for 20 days. - Oral Active acetaminophen (TYLENOL) 325 mg tablet Take 1 Tablet by mouth every 6 hours as needed for Pain (mild to moderate pain) for up to 20 days. - Oral Active traMADoL (ULTRAM) 50 mg tablet Take 1 tablet (50 mg total) by mouth every 6 (six) hours if needed (Moderate to severe pain) for up to 7 days. Max Daily Amount: 200 mg 28 tablet 02/14/2024 02/21/2024 Active Problems Problem Noted Date Diagnosed Date Arthritis of carpometacarpal (CMC) joint of both thumbs 06/24/2023 Encounters Date Type Department Care Team Description 03/07/2024 3:30 PM EST Evaluation [facility] [address] [address] Gogo Doherty, PT Acute left ankle pain (Primary Dx); Postoperative state 02/28/2024 1:00 PM EST Office Visit Orthopedic Surgery [facility] [address] [address] Jer Kinsey DPM Post-operative state (Primary Dx) 02/14/2024 8:30 AM EST Office Visit Orthopedic [facility] [address] [address] Jer Kinsey DPKelle Postoperative state (Primary Dx) 01/18/2024 10:15 AM EST Office Visit Orthopedic [facility] [address] [address] Jer Kinsey DPKelle Postoperative state (Primary Dx) 01/04/2024 8:15 AM EST Office Visit Orthopedic [facility] [address] [address] Jer Kinsey DPM Controlled type 2 diabetes with neuropathy (CMS/HCC) (Primary Dx); Tinea pedis of both feet; Pain in left ankle 12/15/2023 2:19 PM EDT - 12/20/2023 9:39 AM EDT Hospital Encounter [facility] ONLY Jer Kinsey DPM Displaced pilon fracture of left tibia, initial encounter for closed fracture Discharge Disposition: Home or Self Care 12/14/2023 4:54 PM EDT - 12/14/2023 11:55 PM EDT Hospital Encounter [facility] CONVERSION ONLY Amelie, Jer A, DPM Discharge Disposition: Home or Self Care from Last 3 Months Medical History Medical History Date Comments Essential hypertension DX:Essent ial hypertension Diabetes mellitus type 2, co ntrolled, with complications (CMS/HCC) DX:Diabetes mellitus type 2, controlled, with complications (HCC) Anxiety state DX:Anxiety state Gout DX:Gout Social History Tobacco Use Types Packs/Day Years Used Date Smoking Tobacco: Never Assessed Sex and Gender Information Value Date Recorded Sex Assigned at Not on file Gender Identity Not on file Sexual Orientation Not on file Job Start Date Occupation Industry Not on file Not on file Not on file Obstetrics History Last Filed Vital Signs Vital Sign Reading Time Taken Comments Blood Pressure - - Pulse - - Temperature - - Respiratory Rate - - Oxygen Saturation - - Inhaled Oxygen Concentration - - Weight 81.6 kg (180 lb) 02/28/2024 1:09 PM EST Height 167.6 cm (5' 5.98 ) 02/14/2024 8:41 AM ES T Body Mass Index 29.07 02/14/2024 8:41 AM EST Plan of Treatment Upcoming Encounters Date Type Department Care Team (Late st Contact Info) Description 03/14/2024 4:00 PM EST Treatment [facility] [address] [phone] Gogo Doherty, PT 03/20/2024 4:00 PM EST Treatment [facility] [address] [phone] Gogo Doherty, PT 03/22/2024 4:00 PM EST Treatment [facility] [address] [phone] Ousmane Hi, TIRE BLADDER MAKER 03/28/2024 4:00 PM EST Treatment [facility] [address] [phone] Jacques Ballesteros, PT 175 [place] [address] 04/04/2024 4:00 PM EST Treatment [facility] [address] [phone] Mark Calzada, TIRE BLADDER MAKER 04/09/2024 4:00 PM EST Treatment [facility] [address] [phone] Ousmane Hi, TIRE BLADDER MAKER 04/11/2024 4:00 PM EST Treatment [facility] [address] [phone] Jacques Ballesteros, PT 175 [place] [address] 05/01/2024 1:00 PM EDT Office Visit Orthopedic Surgery [place] [address] [phone] Jer Kinsey, DPM [address] [address] Health Maintenance Due Date Last Done Comments Diabetes: Annual GFR (Glomerular Filtration Rate) 1965 Diabetes: Annual Foot Exam 1975 Diabetes: Annual Retina Eye Exam 1975 Hepatitis A Vaccines (1 of 2 - Risk 2-dose series) 01/07/1984 Zoster Vaccines (1 of 2) 2015 Cholesterol Screening (Lipid Panel) 03/18/2023 Colorectal Cancer Screening: Colonoscopy 03/18/2023 Social Influencers of Health Screening 03/18/2023 COVID-19 Vaccine ( season) 2023 02/10/2022, 02/26/2021, 06/02/2020, Additional history exists Influenza Vaccine (#1) 2023 , 03/09/2022, 12/20/2020, Additional history exists Diabetes: Annual Urine Albumin-Creatinine Ratio (uACR) 01/04/2024 Hypertension/CHF/CAD Annual BMP Blood Test 01/04/2024 Diabetes: Blood Sugar Control Test (HGBA1C) 06/12/2024 12/13/2023 Depression Screening 12/12/2024 12/13/2023 DTaP,Tdap,and Td Vaccines (3 - Td or Tdap) 07/25/2030 07/25/2020, 05/09/2013 RSV Immunization Patients 60+ Years Old (1 - 1-dose 75+ series) 01/07/2040 Hepatitis B Vaccines Completed 01/23/2013, 04/24/2007, 12/26/2006, Additional history exists Pneumococcal Vaccine: Pediatrics (0 to 5 Years) and At-Risk Patients (6 to 64 Years) Completed 01/17/2023 HIV Screening Completed 09/22/2023 Hepatitis C Screening Completed 09/22/2023 HIB Vaccines Aged Out No longer eligi ble based on patient's age to complete this topic HPV Vaccines Aged Out No longer eligi ble based on patient's age to complete this topic IPV Vaccines Aged Out No longer eligi ble based on patient's age to complete this topic MMR Vaccines Aged Out No longer eligi ble based on patient's age to complete this topic Meningococcal ACWY Vaccine Aged Out N o longer eligible based on patient's age to complete this topic RSV Immunization Patients Under 20 months Aged Out No longer eligible based on patient's age to complete this topic Varicella Vaccines Aged Out No longer eligible based on patient's age to complete this topic Procedures Procedure Name Priority Date/Time Associated Diagnosis Comments XR ANKLE 3+ VIEWS LEFT Routine 02/28/2024 1:03 PM EST Post-operative state XR ANKLE 3+ VIEWS LEFT Routine 02/14/2024 8:45 AM EST Post-operative state XR ANKLE 3+ VIEWS LEFT Routine 01/18/2024 10:14 AM EST Left ankle pain XR ANKLE 3+ VIEWS LEFT Routine 01/04/2024 8:09 AM EST Pain in left ankle CR ANKLE LT MIN 3 VIEW Routine 12/16/2023 7:40 AM EDT Displaced pilon fracture of left tibia, initial encounter for closed fracture ORTHO X-RAY OF ANKLE (3 VIEWS) Routine 12/12/2023 10:52 AM EDT Pain in left ankle and joints of left foot from Last 3 Months Results * XR Ankle 3+ Views Left (02/28/2024 1:03 PM EST) Only the most recent of4 resultswithin the time period is included. Anatomical Region Laterality Modality Lower Extremities, Ankle Left Compute d Radiography Narrative 03/06/2024 8:21 PM EST Left ankle 3 views nonweightbearing: Adequate reduction from pilon fracture. ??Hardware is remained intact. ??Some radiolucency remains at the distal medial malleolus fragment. ??Adequate distance in the ankle mortise. Jer Kinsey DPKelle IMG XR PROCEDURES * CR ANKLE LT MIN 3 VIEW (12/16/2023 7:40 AM EDT) Anatomical Region Laterality Modality Radiographic Anastasiya ging 12/15/2023 5:49 PM EDT Narrative 12/16/2023 7:40 AM EDT [facility] Diagnostic Imaging Department [address] [place] [address] Patient: ??JESU RUBIO ?/Age/Sex: 1965 - 58 - M Unit#: ??[id number] ? Location/Status: ??SPORSDA/ADM IN ? Mnemonic/Ordering Site: ??ANKLELT/SPMAIN Ordering Physician: ??JER KINSEY DPM CR Ankle LT Min 3 View - 12/15/231809 Report Status:Signed EXAMINATION: Left ankle 3 views. CLINICAL INDICATION: Post op. COMPARISON: None. FINDINGS: . There is a vertical tibial fracture extending intra-articular space stabilized with 2 transverse and the medial malleolus screw. The fracture fragments alignment. A posterior cast is present. No callus formation seen. The ankle mortise and subtalar joints are normal. IMPRESSION: Status post ORIF with vertical tibial fracture and alignment. There is a posterior ankle cast. Dictating Physician: ??ARMINDA DE LA TORRE Electronically Signed by: ??ARMINDA DE LA TORRE Dic Date/Time: ??12/16/2337 Sign date/Time: ??12/16/23739 Procedure Note Arminda De La Torre MD - 12/24/2023 [facility] Diagnostic Imaging Department [address] [place], [place] [id number] Patient: JESU RUBIO/Age/Sex: 1965 - 58 - M Unit#: [id number] Location/Status: SPORSDA/ADM IN Mnemonic/Ordering Site: ANKLELT/SPMAIN Ordering Physician: JER KINSEY DPM CR Ankle LT Min 3 View - 12/15/231809 Report Status:Signed EXAMINATION: Left ankle 3 views. CLINICAL INDICATION: Post op. COMPARISON: None. FINDINGS: . There is a vertical tibial fracture extending intra-articular spacestabilized with 2 transverse and the medial malleolus screw. The fracture fragments alignment. A posterior cast is present. No callus formation seen. Theankle mortise and subtalar joints are normal. IMPRESSION: Status post ORIF with vertical tibial fracture and alignment. There is a posterior ankle cast. Dictating Physician: ARMINDA DE LA TORRE Electronically Signed by: ARMINDA DE LA TORRE Dic Date/Time: 12/16/2337 Sign date/Time: 12/16/23 0740 Jer Kinsey DPKelle IMG XR PROCEDURES * ORTHO X-RAY OF ANKLE (3 VIEWS) (12/12/2023 10:52 AM EDT) Anatomical Region Laterality Modality Radiographic Anastasiya ging 12/12/2023 10:4 9 AM EDT Narrative 12/21/2023 8:13 PM EDT Left ankle 3 views nonweightbearing: Radiolucency through the medial malleolus with slight displacement. ??Notable fracture fragment to the anterior lateral aspect of the tibia extending into the weightbearing surface of the tibia. ??Minimal displacement. Procedure Note Jer Kinsey DPM - 12/24/2023 Left ankle 3 views nonweightbearing: Radiolucency through the medialmalleolus with slight displacement. Notable fracture fragment to theanterior lateral aspect of the tibia extending into the weightbearingsurface of the tibia. Minimal displacement. Jer Kinsey DPM IMG XR PROCEDURES from Last 3 Months Care Teams Mounter Automatic Relationship Specialty Start Date End Date Татьяна Vera MD [address] [place] [phone] PCP - General 02/07/23
--- OUTSIDE RECORDS SUMMARY | 2024-03-13 17:43 | XMS_ITS | Encounter Summary ---
Author Organization [employer] Address [address] [facility] [address] [place] [address] Care Team Providers Care Car Tester Name Role Phone Татьяна Vera MD Primary Care Provider [phone] Raheem Merida PharmD Unavailable [phone] Reason for Visit * Reason Comments Med Refill Encounter Details Date Type Department Care Team ([facility] st Contact Info) Description 03/17/2022 Refill [facility] [address] [place], [place] [phone] Татьяна Vera MD [address] [place], [place] [phone] Gout, unspecified cause, unspecified chronicity, unspecified site [...] as of this encounter Visit Diagnoses Diagnosis Gout, unspecified cause, unspecified chronicity, unspecified site documented in this encounter Additional Health Concerns Assessment Noted Time PHQ-9 Depression Total Score: 2 03/09/19 23 3:09 PM EST documented as of this encounter Care Teams Car Tester Relationship Specialty Start Date End Date Татьяна Vera MD [address] [place] [address] PCP - General Family Medicine 12/22/11 Raheem Merida, Varun [address] [place] [address] Pharmacist Internal Medicine 07/12/23 documented as of this encounter
--- OUTSIDE RECORDS SUMMARY | 2024-03-13 17:43 | XMS_ITS | Encounter Summary ---
Author Organization [employer] Address [address] [place] [address] Care Team Providers Care Retail Specialist Name Role Phone Татьяна Vera MD Primary Care Provider [phone] Reason for Visit * Consultation (Routine) - Authorized Specialty Diagnoses / Procedures Referred By Mckenna tan Referred To Contact Physical Therapy Diagnoses Postoperative state Jer Kinsey DPM [address] [address] Referral ID Status Reason Start Date Expiration Date Visits Requested Visits Authorized [id number] Authorized Consult and Treat 02/14/2024 02/13/2025 25 25 Encounter Details Date Type Department Care Team (Latest Contact Info) Description 03/07/2024 3:30 PM EST Evaluation [facility] [address] [phone] Gogo Doherty PT Acute left ankle pain (Primary Dx); Postoperative state Social History Tobacco Use Types Packs/Day Years Used Date Smoking Tobacco: Never Assessed Sex and Gender Information Value Date Recorded Sex Assigned at Not on file Gender Identity Not on file Sexual Orientation Not on file Job Start Date Occupation Industry Not on file Not on file Not on file documented as of this encounter Progress Notes * Gogo Doherty PT - 03/07/2024 3:30 PM EST [facility] - Outpatient PHYSICAL THERAPY EVALUATION Date: 03/07/2024 Visit Number: 1 Patient Name: Jesu Dunntiz : 1965 Age: 59 y.o. Gender: male Diagnosis: ICD-10-CM ICD-9-CM 1. Acute left ankle pain M25.572 719.47 2. Postoperative state Z98.890 V45.89 Ambulatory referral to Physical Therapy and Athletic Training Date of Onset/Surgery: 12/15/2023 Referring Provider: Jer Kinsey DPM Insurance: Payor: [employer] [place] [employer]AGE / Plan: [facility] MEDICAID /$0 / Product Type: *No Product type* / Patient identified by: Gogo Doherty PT Language: Pt. speaks Luxembourgish as preferred language, however declines channel cementer -- present toassist Chart Reviewed: Yes Medications: Current Outpatient Medications on File Prior to Visit Medication Sig Dispense Refill acetaminophen (TYLENOL) 325 [...] Take 1 Tablet by mouth at bedtime. No current facility-administered medications on file prior to visit. Discussed current medications that may impact therapy. Medication list obtained and reviewed. Referto document in medical record. Advised Patient to contact MD with any questions regarding medications and importance of managing medication information. has a past medical history of Anxiety state, Diabetes mellitus type 2, controlled, with complications (CMS/HCC), Essential hypertension, and Gout. has no past surgical history on file. has No Known Allergies. Precautions: None SUBJECTIVE History of Present Illness/Subjective Report: Pt presents with who assists with translation. Pt had L ORIF surgery on 12/15/2023. Pt reports he fell down the stairs on 12/07/23. Was seen in urgent care, given a CAM boot. Following surgery has been in CAM boot. At last follow up, was cleared for PT and to start weaning boot. Pt reports he has been in the boot all the time. Has been using wheelchair for appointments and grocery store. Has done a bit of walking at the store with the boot on. Pt reports tingling in the toes. Pt reports L knee pain as well since the ankle injury. 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 In L toes Tandem Balance: L in rear unable to balance, R in rear no difficulty SL Balance: L x ~5 sec without P!, R no difficulty ROM Ankle DF: L lacking 10* PF: L 35* bothersome EV: L 15* IN: L 20* Strength Ankle - Deferred at IE Palpation: mild TTP at lateral malleolus HEP: DF towel stretch, towel scrunches, B heel raise with UE support ASSESSMENT/Response to Treatment: Jesu Stevens is a 59 y.o. male presenting for outpatient physical therapy evaluation s/p L ORIF. Significant clinical findings include: decreased ROM, strength, difficulty with functional mobility d/t CAM boot. Skilled Physical therapy is medically necessary to improve ROM, wean CAM boot, increase strength, and return to PLOF. Patient provided with initial HEP printout, demonstrated and verbalized understanding. Rehabilitation Potential: Rehab Potential: Condition Has Potential to Improve Motivation for Rehab: Good Support Structure: Good Learning Needs: Were Patient Learning needs assessed: Yes Learning Preferences: Printed Materials Barriers to Learning: Hearing Deficits and Visual Deficits Patient Education: [x] Discussed, with patient and/or caregiver, the recommended plan of care/goals, the importance oftherapy and appointment compliance in order to achieve goals in a timely manner. Education provided: HEP as noted above, educated to slowly wean out of CAM boot - start at home without it, still wear when leaving the house, ice as needed if swelling. Pt educated to progress per tolerance - educated on use of SPC as needed while weaning out of boot Education Provided To: Patient utilizing Explanation, Demonstration, and Printed Material as mode(s) of education. Response to Education: Applied Knowledge, Verbal Understanding, and Demonstrated Skills GOALS [] Pt will be I with HEP to demonstrate compliance with POC [] Pt will wean from CAM boot [] Pt will demonstrate stairs in reciprocal pattern [] Pt will be able to compelte tandem balance with L in rear x30 sec [] Pt will improve L DF ROM to >/= 5* [] Pt will improve L PF ROM to >/= 60* [] Pt will demonstrate B heel raise >/= 10 with min UE support [] Pt will be able to complete 6 MWT PLAN POC Development/Review: Initial Evaluation; Participants: Patient Skilled Therapy Plan Required: YES- Reasons for Rehab and Medical Necessity -- Return to Premorbid Environment POC: 1-2x/week for 10 visits Tx: wean CAM boot, increase ankle ROM, ankle stabilization, stair training/gait training Planned Therapy Interventions: Cold Pack, Kinesiotaping, Therapeutic Activity, and Therapeutic Exercise Recommended Consults: none Equipment Recommended: none; Equipment Provided: none BILLING TOTAL TREATMENT TIME: 35 Minutes Evaluation Medium Complexity Justification ::: A history of present problem with 1 - 2 personal factors and/or co-morbidities that impact the plan of care and An examination of body systems using standardized tests and measures in addressing a total of 3 or more elements from any of the following body structures and functions, activity limitations, and/or participation restrictions Documentation completed by Gogo Doherty, PT [facility] [address] [address] Dept: [phone] Dept PATIENT NAME: Jesu Stevens : 1965 Certification: This is to certify that the above named patient, who is under my care, requires skilled Therapy services as described in the above treatment plan. I further certify that the services outlined in this plan are skilled and medically necessary. I have reviewed this plan for rehabilitation services, and I recommend that these services continue to meet the above stated goals and plan. SIGNATURE: DATE Jer Kinsey DPM Referring provider documented in this encounter Plan of Treatment Upcoming Encounters Date Type Department Care Team (Late st Contact Info) Description 03/14/2024 4:00 PM EST Treatment [facility] [address] [phone] Gogo Doherty, PT 03/20/2024 4:00 PM EST Treatment [facility] [address] [phone] Gogo Doherty, PT 03/22/2024 4:00 PM EST Treatment [facility] [address] [phone] Ousmane Hi, DIRECTOR OF TEENAGE ACTIVITIES 03/28/2024 4:00 PM EST Treatment [facility] [address] [phone] Jacques Ballesteros, PT 175 [place] [address] 04/04/2024 4:00 PM EST Treatment [facility] [address] [phone] Elsi Mark, DIRECTOR OF TEENAGE ACTIVITIES 04/09/2024 4:00 PM EST Treatment [facility] [address] [phone] Ousmane Hi, DIRECTOR OF TEENAGE ACTIVITIES 04/11/2024 4:00 PM EST Treatment [facility] [address] [phone] Jacques Ballesteros, PT 175 [place] [address] 05/01/2024 1:00 PM EDT Office Visit Orthopedic Surgery [place] [address] [phone] Jer Kinsey, DPM [address] [address] documented as of this encounter Visit Diagnoses Diagnosis Acute left ankle pain- Primary Postoperative state Other postprocedural status documented in this encounter Orders Outpatient Referral Count Last Ordered Date Fir st Ordered Date AMB REFERRAL TO PHYSICAL [facility]ING 1 03/07/2024 documented in this encounter Care Teams Retail Specialist Relationship Specialty Start Date End Date Татьяна Vera MD [address] [place] [phone] PCP - General 02/07/23 documented as of this encounter
[2024-03-13 18:08] LABS: Alanine Aminotransferase 50 U/L (0-40); Albumin Level 4.7 g/dL (3.5-5.0); Alkaline Phosphatase 78 U/L (39-117); Aspartate Amino Transferase 36 U/L (5-37); Bilirubin Direct 0.2 mg/dL (0.0-0.5); Bilirubin Total 0.5 mg/dL (0.0-1.0); Total Protein 7.7 g/dL (6.5-8.0)
== END 2024-03-13 16:02 | disposition home or self-care (01) ==
LOC: HO.HHCL 16:01
PROVIDERS: Visit Provider Family Medicine
DX: R76.0 Raised antibody titer (principal); F10.90 Alcohol use, unspecified, uncomplicated
CPT/HCPCS: 36415; 80076; 85025

== ENCOUNTER 2024-09-22 07:05 | Outpatient (REF) | payer OTHER, MEDICAID, SELFPAY ==
[2024-09-22 08:45] LABS: Microalbum/Creatinine Ratio Ur 16.0 ug/mg cr (<30)
[2024-09-22 08:51] LABS: Alanine Aminotransferase 77 U/L (0-40); Albumin Level 4.9 g/dL (3.5-5.0); Alkaline Phosphatase 86 U/L (39-117); Anion Gap 11 (12-20); Aspartate Amino Transferase 74 U/L (5-37); Blood Urea Nitrogen 15 mg/dL (9-16); Calcium 9.2 mg/dL (8.4-10.2); Carbon Dioxide 24 mmol/L (22-29); Chloride 107 mmol/L (96-108); Cholesterol 166 mg/dL (<200); Estimated Glomerular Filt Rate > 60; HDL Cholesterol 53 mg/dL (>40); Potassium 4.1 mmol/L (3.3-5.1); Sodium 138 mmol/L (135-145); Total Protein 7.8 g/dL (6.5-8.0); Triglycerides 173 mg/dL (<150)
[2024-09-22 09:15] LABS: Folate 14.4 ng/mL (> or = 4.0); Vitamin B12 434 pg/mL (200-900)
[2024-09-22 11:03] LABS: Uric Acid 4.9 mg/dL (3.4-7.0)
[2024-09-22 11:38] LABS: Reflex LDLD? No
== END 2024-09-22 07:06 | disposition home or self-care (01) ==
LOC: HO.LAB 07:05
PROVIDERS: PCP Family Medicine; Visit Provider Family Medicine
DX: I10 Essential (primary) hypertension (principal); E11.65 Type 2 diabetes mellitus with hyperglycemia; E78.2 Mixed hyperlipidemia; K76.0 Fatty (change of) liver, not elsewhere classified; F10.90 Alcohol use, unspecified, uncomplicated; M10.9 Gout, unspecified
CPT/HCPCS: 36415; 80053; 80061; 82043; 82570; 82607; 82746; 84550

== ENCOUNTER 2024-11-21 09:43 | Outpatient (AMB) | payer OTHER, SELFPAY ==
--- NOTE | 2024-11-21 09:45 | MHC.OFFVIS ---
Vital Signs 11/21/24 09:47 Height 5 ft 5 in Weight 174 lb 9.698 oz BMI 29.1 BP 122/75 Blood Pressure Location Rt brachial Position Sitting Pulse 88 Intake Visit Reasons: ([facility])/ colo screening Intake Note: New patient in office today for colonoscopy screening. CC: Patient c/o diarrhea. Denies other GI symptoms today. Accountant Bookkeeper Required: Yes Accountant Bookkeeper Services: Accountant Bookkeeper Offered & Declined Accountant Bookkeeper Name: Accompanied by: Allergies No Known Allergies Allergy (Verified 11/21/24 09:51) HPI HPI ([facility])/ colo screening: Details: 59-year-old male here for preprocedural meeting to discuss a screening colonoscopy. He is referred by [facility]. PMX Hypertension High cholesterol Diabetes Metabolic and alcoholic liver disease Alcohol use disorder Hyperuricemia /gout Dupuytren's contractures Erectile dysfunction History of left ankle fracture Osteoarthritis of the hands * SURGICAL HISTORY Ankle fx repair COlonoscopy, Spenser neg study * ALLERGIES: NKDA * [facility] LABS: Laboratory Tests 03/13/24 09/22/24 16:03 07:13 WBC 9.4 Hgb 14.4 Hct 42.2 Plt Count 204 D Estimated GFR > 60 Total Bilirubin 0.7 AST 74 H ALT 77 H Alkaline Phosphatase 86 TODAY'S VISIT He [place] [facility] [place] that was [place] Bowel or upper Gi problems: no He denies cardiac or respiratory problems. No anes or sed problems. No ID problems. There is no known FHX crc or polyps. [facility] Medical History (Updated 11/21/24 @ 10:00 by MAKSIM Brown) Laceration of right middle finger Hyperlipemia Diabetes HTN (hypertension) Gout Surgical History (Updated 11/21/24 @ 09:56 by SURYA Boone) History of ankle surgery H/O colonoscopy Social History (Updated 04/07/22 @ 14:14 by Deyanira Diaz) Alcohol intake: current Alcohol intake frequency: a few times a week Alcohol type: beer Patient Tobacco Use Status: Never used Tobacco Current occupational status: employed Current occupation: [employer]/ right hand dominant Review of Systems Const Denies fatigue, Denies fever(s), Denies night sweats, Denies poor appetite and Denies weight loss Eyes Reports requires corrective lenses ENT Reports Normal hearing present, Denies dental pain, Denies dysphagia, Denies hearing loss, Denies mouth pain, Denies odynophagia, Denies throat swelling, Denies tongue swelling and Reports other (Dentition adequate) GI Details: Denies abdominal pain, Denies melena, Denies bloating, Denies hematochezia, Denies constipation, Denies GI cramping, Denies dysphagia, Denies excessive flatus, Denies early satiety, Denies heartburn, Denies diarrhea, Denies nausea, Denies odynophagia, Denies vomiting and Denies hematemesis Skin/Breast Denies pruritus, Denies lesions, Denies rash and Denies jaundice Neuro Reports Normal hearing present and Denies Abnormal speech present Endo Denies fatigue Aller/Immun Denies throat swelling and Denies tongue swelling Physical Exam Const General: cooperative, no acute distress, well developed and well groomed Nutritional Appearance: well nourished and obese centrally obese Orientation/consciousness: oriented to person, oriented to place and oriented to time Limitations: language barrier HEENT Head: Yes normocephalic and Yes atraumatic Eyes General: appearance normal, both eyes and all related structures Pupils: Equal, round and reactive pupils present Neck Neck: Yes normal visual inspection and Yes no lymphadenopathy Thyroid: Thyroid normal Resp Effort & Inspection: normal respiratory effort and able to speak in complete sentences Auscultation: clear to auscultation bilaterally Cardio Rate: regular rate Rhythm: regular rhythm Heart sounds: Normal, physiologic split S2 sound present Peripheral pulses: radial pulses present and posterior tibial pulses present GI Inspection: No distended, No Abdominal panniculus present and Yes obesity Palpation (GI): Soft to palpation, nontender, no guarding, not rigid and No hepatosplenomegaly present Percussion: Yes normal to percussion Auscultation: normal bowel sounds Rectal Exam - Male: Yes deferred Skin General skin exam: no rashes or lesions noted, turgor normal, skin not dry, no jaundice, No spider nevi and no striae Rashes: no rashes Nails: normal Neuro General: oriented to person, oriented to place and oriented to time Cranial nerves: Yes Equal, round and reactive pupils present and Yes Normal hearing present Speech: No Abnormal speech present Extrem General: Yes normal to inspection, No clubbing, No cyanosis and No edema Psych Appearance: grossly normal and well kempt Mental Status: mental status grossly normal Speech and movement: Normal speech and movement present Affect: normal affect Attitude: cooperative Thought process: Normal thought process present and not confabulating Thought content: Normal thought content present Insight: Good insight present (Psych) Judgement: Good judgement present (Psych) Assessment & Plan Assessment & Plan (1) Pre-op examination: Code(s): Z01.818 - Encounter for other preprocedural examination Category: Medical Plan Swedish #Sandra Live He had a prior [place] [facility] [place] that was negative Bowel or upper Gi problems: no He denies cardiac or respiratory problems. No anes or sed problems. No ID problems. There is no known FHX crc or polyps. Orders: Referrals GI Procedure Notification Z01.818 - Encounter for other preprocedural examination Medications: New peg 3350-electrolytes 236-22.74-6.74 -5.86 gram (Golytely) until fecal effluent is clear; do not exceed a total volume of 2,000 mL 240 mL PO Q10M 4,000 mL 0RF 1 day Z12.11 - Encounter for screening for malignant neoplasm of colon bisacodyl (Dulcolax (bisacodyl)) 10 mg (2 x 5 mg) PO BEDTIME 4 tabs 0RF 2 days Coding Level of Care Code New Pt Level 3 (01091) Diagnoses Pre-op examination Z01.818
[2024-11-21 09:47] VITALS: BP 122/75; PULSE 88; BMI 29.1
--- OUTSIDE RECORDS SUMMARY | 2024-11-21 10:37 | XMS_ITS | Encounter Summary ---
Author Organization [employer] Address [address] [place] [address] Care Team Providers Care Ladle Liner Helper Name Role Phone Татьяна Vera MD Primary Care Provider [phone] Raheem Merida PharmD Unavailable [phone] Reason for Visit * Reason Comments Med Refill Encounter Details Date Type Department Care Team ([facility] st Contact Info) Description 03/17/2022 Refill [facility] [address], [place] [phone] Татьяна Vera MD [address], [place] [phone] Gout, unspecified cause, unspecified chronicity, unspecified site [...] documented as of this encounter Care Teams Ladle Liner Helper Relationship Specialty Start Date End Date Татьяна Vera MD [address] [place] [address] PCP - General Family Medicine 12/22/11 Raheem Merida, Varun [address] [place] [address] Pharmacist Internal Medicine 07/12/23 documented as of this encounter
--- OUTSIDE RECORDS SUMMARY | 2024-11-21 10:37 | XMS_ITS | Clinical Summary ---
Author Organization [employer] Address [address] [place] [address] Care Team Providers Care Technical Marketing Engineer Name Role Phone Tova Vera MD Primary Care Provider [phone] Raheem Merida PharmD Unavailable Allergies No known active allergies Medications colchicine 0.6 MG tabletIndicatio ns:Gout, unspecified cause, unspecified chronicity, unspecified site TAKE 2 TABLETS AT THE FIRST SING OF GOUT FLARE, FOLLOWED BY 1 TABLET AFTER 1 HOUR ON DAY1 (MAXIMUM 3 TABS PER DAY). TAKE 1 TABLET ONCE OR TWICE DAILY UNTIL FLARE RESOLVES. 30 tablet 1 11/09/19 23 Active OneTouch Delica Lancets 33G miscIndications :Type 2 diabetes mellitus with hyperglycemia, without long-term current use of insulin (HCC) Use to test blood sugar 2 times daily 100 each 5 07/11/19 24 Active Alcohol Swabs 70 % padsIndications :Type 2 diabetes mellitus with hyperglycemia, without long-term current use of insulin (HCC) Use to test blood sugar 2 times daily 100 each 5 07/11/19 24 Active Blood Glucose Monitoring Suppl (ONE TOUCH ULTRA 2) w/Device kitIndications: Type 2 diabetes mellitus with hyperglycemia, without long-term current use of insulin (HCC) Use to test blood sugar 2 times daily 1 kit 07/11/19 24 Active lisinopril 5 MG tabletIndicatio ns:Essential [...] hyperglycemia, without long-term current use of insulin ([facility]) TAKE 2 TABLETS BY MOUTH EVERY 12 HOURS 360 tablet 2 03/13/19 25 Active atenolol (Tenormin) 25 MG tabletIndicatio ns:Essential hypertension TAKE 1 TABLET BY MOUTH EVERY DAY 90 tablet 3 05/22/19 25 Active ibuprofen 800 MG tablet TAKE 1 TABLET (800 MG) BY MOUTH EVERY 8 (EIGHT) HOURS IF NEEDED FOR FEVER, HEADACHES OR MODERATE PAIN. 50 tablet 1 05/22/19 25 Active atorvastatin (Lipitor) 10 MG tabletIndicatio ns:Gout, unspecified cause, unspecified chronicity, unspecified site TAKE 1 TABLET BY MOUTH EVERY DAY IN THE MORNING 90 tablet 3 05/22/19 25 Active repaglinide (Prandin) 0.5 MG tablet TAKE 1 TABLET (0.5 MG) BY MOUTH BEFORE BREAKFAST, BEFORE LUNCH, AND BEFORE EVENING MEAL. 90 tablet 3 06/06/19 25 2025 Active Blood Glucose Monitoring Suppl (FreeStyle Lite) w/Device kitIndications: Type 2 diabetes mellitus with hyperglycemia, without long-term current use of insulin ([facility]) 1 each Once per day. Use to test blood sugar 2 times daily 1 kit 07/19/19 Active FreeStyle lancetsIndicati ons:Type 2 diabetes mellitus with hyperglycemia, without long-term current use of insulin ([facility]) 1 each by Other route Once per day. 100 each 07/19/19 25 2025 Active FREESTYLE LITE test stripIndication s:Type 2 diabetes mellitus with hyperglycemia, without long-term current use of insulin ([facility]) TEST BLOOD SUGAR TWICE DAY 100 each 11 07/19/19 25 2025 Active tadalafil (Cialis) 10 MG tablet 10 mg as a single dose >=30 minutes prior to anticipated sexual activity; do not take more than once daily. Erectile function may be improved for up to 36 hours following a single dose. 30 tablet 2 10/30/19 25 Active tadalafil (Cialis) 5 MG tablet TAKE 1 TABLET BY MOUTH EVERY DAY IN THE MORNING 30 tablet 3 06/19/19 25 2024 Discontinued(R eorder (will not trigger notification to Pharmacy)) Active Problems Problem Noted Date Diagnosed Date Controlled type 2 diabetes with neuropathy 10/29 Closed left ankle fracture 12/13/2023 Assessment & Plan (03/17/2024 6:43 PM EST): -date of injury 12/07/23 -Nondisplaced fracture of the left medial malleolus. Comminuted essentially nondisplaced fracture of the distal left tibia. 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 Assessment & Plan (12/13/2023 5:58 PM EDT): [...] office Erectile dysfunction 02/04/2023 Assessment & Plan (11/04/2024 10:39 PM EDT): - 01/22/23 Testosterone 329 ng/dL; PSA 0.54 ng/DL - recommended to reduce alcohol intake - prn tadalafil was ineffective - increase tadalafil to 10 mg - refer to urologist for further evaluation and management Assessment & Plan (07/17/2024 4:01 PM EDT): - 01/22/23 Testosterone 329 ng/dL; PSA 0.54 ng/DL - recommended to reduce alcohol intake - prn tadalafil was ineffective - will try tadalafil 5 mg daily - refer to urologist for further evaluation and management Assessment & Plan (06/05/2023 5:17 PM EDT): [...] gout. - previously seen by Dr. Artis, [facility], upcoming appt - activity modification - judicious use of NSAIDs. 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 Possible CTS. Unlikely gout. - previously seen by Dr. Artis, [facility] - refer back to orthopedic providers - activity modification - judicious use of NSAIDs. Type 2 diabetes mellitus 03/09/2022 Assessment & Plan (11/04/2024 10:40 PM EDT): -Dx: April 2019 -A1C 6.2% on 10/29/2024, improved from 6.5% on 07/17/24 -Continue working on lifestyle modifications. -Improve adherence to self-monitoring glucose: OneTouch glucometer -Continue Metformin ER 1000 mg BID, advise to improve adherence. -Continue repaglinide 0.5 mg tid -Discussed about other medications, but patient declines injectable medication and SGLT-2 inhibitor due to its side effect -Eye: exam on Mar 2023, [facility] - no diabetic retinopathy; mild Glaucoma. More recent exam per pt -Feet: comprehensive exam done on 10/29/24, decreased sensation on left foot -Fasting lipid profile: Sep 2024 -Microalbumin test: Jan 2023 no microalbuminuria Assessment & Plan (07/18/2024 11:03 PM EDT): -Dx: April 2019 -A1C 6.5% on 07/17/24, improved from 7.5% today 03/14/24 -Continue working on lifestyle modifications. -Improve adherence to self-monitoring glucose: OneTouch glucometer -Continue Metformin ER 1000 mg BID, advise to improve adherence. -Continue repaglinide 0.5 mg tid -Discussed about other medications, but patient declines injectable medication and SGLT-2 inhibitor due to its side effect -Eye: exam on Mar 2023, [facility] - no diabetic retinopathy; mild Glaucoma. More recent exam per pt -Feet: comprehensive exam done on 05/24/23 -Fasting lipid profile: Sep 2023 -Microalbumin test: Jan 2023 no microalbuminuria Assessment & Plan (03/17/2024 6:40 PM EST): -Dx: April 2019 -A1C 7.5% today 03/14/24, worsened from 6% on 12/12/23. Likely due to lack of physical activity -Continue working on lifestyle modifications. -Improve adherence to self-monitoring glucose: OneTouch glucometer -Continue Metformin ER 1000 mg BID, advise to improve adherence. -Continue repaglinide 0.5 mg tid -Discussed about other medications, but patient declines injectable medication and SGLT-2 inhibitor due to its side effect -Eye: exam on Mar 2023, [facility] - no diabetic retinopathy; mild Glaucoma. More recent exam per pt -Feet: comprehensive exam done on 05/24/23 -Fasting lipid profile: Sep 2023 -Microalbumin test: Jan 2023 no microalbuminuria Assessment & Plan (12/13/2023 5:59 PM EDT): [...] side effect -Eye: exam on Mar 2023, [facility] - no diabetic retinopathy; [...] side effect -Eye: exam on Mar 2023, [facility] - no diabetic retinopathy; [...] side effect -Eye: exam on Mar 2023, [facility] - no diabetic retinopathy; [...] 3 Months. Gout 03/09/2022 Assessment & Plan (07/18/2024 11:04 PM EDT): -continue allpurinol as prophylaxis -low-purine diet -reduce alcohol intake Assessment & Plan (03/13/2024 4:59 PM EST): [...] specialist Essential hypertension 12/30/2014 Assessment & Plan (10/28/2024 6:51 PM EDT): Goal BP < 130/80 per ACC/AHA guideline Continue lifestyle modifications. Decrease lisinopril to 5 mg daily. Continue atenolol 25mg daily. Continue working on lifestyle modifications Continue working on reduction of alcohol consumption Continue checking home BP --Follow-up in 3 Months. Assessment & Plan (07/17/2024 4:00 PM EDT): Goal BP < 140/90 per JNC-8; < 130/80 per ACC/AHA guideline Continue lifestyle modifications. Decrease lisinopril to 5 mg daily. Continue atenolol 25mg daily. Continue working on lifestyle modifications Continue working on reduction of alcohol consumption Continue checking home BP --Follow-up in 3 Months. Assessment & Plan (03/13/2024 4:58 PM EST): [...] intake (MetALD) 05/09/2013 01/07/2023 Assessment & Plan (10/28/2024 6:52 PM EDT): - Last liver test: 09/22/23 - Last US / elastography 09/22/23. Shear wave liver elastography median stiffness is 2.10 m/s, suggestive of compensated advanced liver disease - FIB4 index 2.20, intermediate - GI: [facility], last seen in April 2019 - continue working on lifestyle modifications - continue surveillance study -patient stopped drinking for 6wks and was supposed to recheck lab. However, the plan was interrupted by Covid-19. Will check next appt with GI. -continue reducing EtOH consumption. -previously tried Hydroxyzine to help cravings, anxiety. Assessment & Plan (07/17/2024 4:01 PM EDT): - Last liver test: 09/22/23 - Last US / elastography 09/22/23. Shear wave liver elastography median stiffness is 2.10 m/s, suggestive of compensated advanced liver disease - FIB4 index 2.20, intermediate - GI: [facility], last seen in April 2019 - continue working on lifestyle modifications - continue surveillance study -patient stopped drinking for 6wks and was supposed to recheck lab. However, the plan was interrupted by Covid-19. Will check next appt with GI. -continue reducing EtOH consumption. -previously tried Hydroxyzine to help cravings, anxiety. Assessment & Plan (03/13/2024 4:59 PM EST): - Last liver test: 09/22/23 - Last US / elastography 09/22/23. Shear wave liver elastography median stiffness is 2.10 m/s, suggestive of compensated advanced liver disease - FIB4 index 2.20, intermediate - GI: [facility], last seen in April 2019 - continue [...] - FIB4 index 2.20, intermediate - GI: [facility], last seen in April 2019 - continue [...] 03/09/2022 10:32 AM BY TOVA VERA MD -[facility] on 11/06/18. Fatty infiltration or hepatocellular disease. [...] 01/17/2023 6:35 AM BY TOVA VERA MD -[facility] on 11/06/18. Fatty infiltration or hepatocellular disease. [...] 06/05/2023 5:25 PM BY TOVA VERA MD -[facility] on 11/06/18. Fatty infiltration or hepatocellular disease. [...] intake Mixed hyperlipidemia 09/28/2011 Assessment & Plan (10/30/2024 9:51 AM EDT): - last lipid profile in Sep 2024 - current medication: atorvastatin 10 mg at bedtime, repeat liver function test and lipid profile in 3 mo - he does not take statin when he drinks alcohol - continue working on lifestyle modifications Assessment & Plan (07/18/2024 11:03 PM EDT): - last lipid profile in Sep 2023 - current medication: atorvastatin 10 mg at bedtime, repeat liver function test and lipid profile in 3 mo - he does not take statin when he drinks alcohol - continue working on lifestyle modifications Assessment & Plan (03/13/2024 4:59 PM EST): [...] Encounters Date Type Department Care Team Description 10/29/2024 3:30 PM EDT Office Visit [facility] [address] [place] [phone] Tova Vera MD Essential hypertension (Primary Dx); Mixed hyperlipidemia; Type 2 diabetes mellitus with hyperglycemia, without long-term current use of insulin (CMS/HCC); Metabolic dysfunction-associated steatotic liver disease and increased alcohol intake (MetALD); Dietary counseling; Exercise counseling; Overweight; Controlled type 2 diabetes with neuropathy (CMS/HCC); Erectile dysfunction, unspecified erectile dysfunction type 10/29/2024 Travel 10/28/2024 Travel 10/26/2024 Telephone [facility] [address] [place] [address] Radha ParkTU 09/28/2024 Results Follow-Up [facility] [address] [place] [address] Tova Vera MD Vitamin B12 (Cobalamin) and Folate Panel, Serum, Lipid Panel with Reflex to Direct LDL, Albumin, Random Urine W/Creatinine, Additional followed-up results: 2 09/28/2024 Orders Only [facility] [address] [place] [address] Tova Vera MD Transaminitis (Primary Dx) from Last 3 Months Immunizations Immunization Administration Dates Next Due Hep A, Adult 07/17/2024 Hep B, adult 01/23/2013, 8,12/26/2006,2006 Influenza injectable [...] Given: Not Answered Alcohol Answer Date Recorded How often do you have a drink containing alcohol ? 1 10/30/2024 How many drinks containing a lcohol do you have on a typical day when you are drinking? 1 10/30/2024 Frequency of Binge Drinking Not on file 10/2024 Depression Answer Date Recorded Patient Health Questionnaire-9 Score 0 12/13/2023 Patient Health Questionnaire-9 Score 0 12/13/2023 Last PHQ-9: Questionnaire Data Not on file 1 Housing Stability Answer Date Recorded What is your housing situation today? I have pati padilla 10/30/[address] you li ve. Do you have problems with any of the following? None of the above 10/30/2024 Food Insecurity Answer Date Recorded Within the past 12 months, y ou worried that your food would run out before you got money to buy more: Never True 10/30/2024 Within the past 12 months,th e food you bought just didn't last and you didn't have enough money to get more: Never True 10/2024 Transportation Answer Date Recorded In the past 12 months, has l ack of transportation kept you from medical appts, meetings, work or from getting things needed for daily living? No 10/30/2024 Utilities Answer Date Recorded In the past 12 months, has t he electric, gas, oil or water company threatened to shut off services in your home? No 10/30/2024 Depression Answer Date Recorded Patient Health Questionnaire-2 Score 0 12/13/2023 Internet Access Answer Date Recorded Internet Access Q1 Yes 10/30/2024 Internet Access Q2 Not on file 10/30/2024 Sex and Gender Information Value Date Recorded Sex Assigned at Male 12/21/2021 10:16 AM EDT Legal Sex Male 10:16 AM EDT Gender Identity Male 12/21/2021 10:16 AM EDT Sexual Orientation Straight 12/21/2021 10 :16 AM EDT Last Filed Vital Signs Vital Sign Reading Time Taken Comments Blood Pressure 144/80 10/29/2024 3:30 PM EDT Pulse 69 10/29/2024 3:18 PM EDT Temperature 36.1 C (96.9 F) 10/29/2024 3:18 PM EDT Respiratory Rate 22 10/29/2024 3:18 PM EDT Oxygen Saturation 100% 10/29/2024 3:18 PM EDT Inhaled Oxygen Concentration - - Weight 79.9 kg (176 lb 3.2 oz) 10/29/2024 3:18 P M EDT Height 167.6 cm (5' 6 ) 10/29/2024 3:18 PM EDT Body Mass Index 28.44 10/29/2024 3:18 PM EDT Plan of Treatment Health Maintenance Due Date Last Done Comments CT Colonography 1965 FIT DNA/Cologuard 1965 FIT 1965 FOBT 1965 Sigmoidoscopy 1965 Zoster Vaccines (1 of 2) 2015 COVID-19 Vaccine ( season) 2024 02/10/2022, 02/26/2021, 06/02/2020, Additional history exists Influenza Vaccine (#1) 2024 , 01/17/2023, 03/09/2022, Additional history exists Depression Screening 12/12/2024 12/13/2023, 12/13/19 24 Hepatitis A Vaccines (2 of 2 - Risk 2-dose series) 01/17/2025 07/17/2024 Diabetes: Hemoglobin A1C 01/28/2025 025, 07/17/2024, 03/13/2024, Additional history exists Eye Exam 04/13/2025 04/13/2023 Colonoscopy 08/07/2025 08/08/2015 Colorectal Cancer Screening 08/07/2025 Diabetes: Urine Protein Screening 09/22/2025 09/22/2024, 01/22/2023, 02/19/2022, Additional history exists Lipid Panel 09/22/2025 09/22/2024, 08/0 02/2023, 01/22/2023, Additional history exists Disability Screening 10/28/2025 10/28/2024 Diabetes: Foot Exam 10/29/2025 10/29/2024, 05/24/2023, 05/24/2023, Additional history exists Tobacco Screening 10/29/2025 10/29/2024 Alcohol/Substance Use Screening 10/30/2025 10/30/2024 SDOH Screening 10/30/2025 10/30/2024 DTaP/Tdap/Td Vaccines (3 - Td or Tdap) 07/25/2030 07/25/2020, 05/09/2013 RSV Patients and Patients Aged 60 years or older (1 - 1-dose 75+ series) 01/07/2040 Hepatitis B Vaccines Completed 01/23/2013, 04/24/2007, 12/26/2006, Additional history exists Pneumococcal Vaccine: 50+ Years Completed 01/17/2023 HIV Screening Completed 09/22/2023 Hepatitis C Screening Completed 09/22/2023 HIB Vaccines Aged Out No longer eligi ble based on patient's age to complete this topic HPV Vaccines Aged Out No longer eligi ble based on patient's age to complete this topic IPV Vaccines Aged Out No longer eligi ble based on patient's age to complete this topic Meningococcal B Vaccine Aged Out No l onger eligible based on patient's age to complete [...] Author Blood Pressure < 140/90 Blood Pressure 144/80(2024 3:30 PM EDT) No Raheem Merida, Varun Hemoglobin A1c < 7 Result Component 6.2( 3:21 PM EDT) No Raheem Merida PharmD Procedures Procedure Name Priority Date/Time Associated Diagnosis Comments US ABDOMEN COMPLETE WITH ELASTOGRAPHY Routine 11/01/2024 Transaminitis POCT GLYCOSYLATED HEMOGLOBIN (HGB A1C) Routine 10/29/2024 3:21 PM EDT Type 2 diabetes mellitus with hyperglycemia, without long-term current use of insulin ([facility]) POCT GLUCOSE Routine 10/29/2024 3:19 PM EDT Type 2 diabetes mellitus with hyperglycemia, without long-term current use of insulin ([facility]) URIC ACID Routine 09/22/2024 7:13 AM EDT Gout, unspecified cause, unspecified chronicity, unspecified site COMPREHENSIVE METABOLIC PANEL Routine 09/22/2024 7:13 AM EDT Essential hypertension Metabolic dysfunction-associate d steatotic liver disease and increased alcohol intake (MetALD) LIPID PANEL WITH REFLEX TO DIRECT LDL Routine 09/22/2024 7:13 AM EDT Mixed hyperlipidemia VITAMIN B12/FOLATE, SERUM PANEL Routine 09/22/2024 7:13 AM EDT Type 2 diabetes mellitus with hyperglycemia, without long-term current use of insulin (CMS/HCC) ALBUMIN, RANDOM URINE W/CREATININE Routine 09/22/2024 7:12 AM EDT Type 2 diabetes mellitus with hyperglycemia, without long-term current use of insulin (CMS/HCC) HEPATITIS C AB W/REFL TO HCV RNA, QN, PCR Routine 09/22/2023 10:31 AM EDT Transaminitis HIV 1/2 ANTIGEN/ANTIBODY, FOURTH GENERATION W/RFL Routine 09/22/2023 10:31 AM EDT Transaminitis HM COLONOSCOPY Routine 08/08/2015 from Last 3 Months or Most Recently Relevant to Health Maintenance Results * US Abdomen Comp w elastography (11/01/2024) Anatomical Region Laterality Modality Abdomen Ultrasound Tova Vera MD [facility] US PROCEDURES Final Result * (ABNORMAL) POCT glycosylated hemoglobin (Hgb A1c) (10/29/2024 3:21 PM EDT) Hemoglobin A1C 6.2(A) 4.0 - 5.7 % QC Media Lot # [id number] Lot# Expiration Date [id number] Blood Capillary blood specimen / Unknown 10/29/2024 3:21 PM EDT Tova Vera MD POINT OF CARE TEST ENTER/EDIT OR DERABLES Final Result * POCT glucose manually resulted (10/29/2024 3:19 PM EDT) Glucose Blood, POC 136 60 - 200 mg/dL QC Media Lot # [id number] Lot# Expiration Date [id number] Blood Capillary blood specimen / Unknown 10/29/2024 3:19 PM EDT Tova Vera MD POINT OF CARE TEST ENTER/EDIT OR DERABLES Final Result * Vitamin B12 (Cobalamin) and Folate Panel, Serum (09/22/2024 7:13 AM EDT) Vitamin B12 434 200 - 900 pg/mL [facility] Comment:NORMAL 200-900 PG/ML INDETERMINATE 160-199 PG/ML DEFICIENT < 160 PG/ML Folate 14.4 > or = 4.0 ng/mL [facility] Comment:Reference Values:> o r = 4.0 ng/mL< 4.0 ng/mL suggests folate deficiency Methotrexate, aminopterin and folinic acid(leucovorin) are chemotherapeutic agents whose molecularstructures are similar to folate; therefore, the Architectfolate assay cannot be used for patients using these drugs. Blood 09/22/2024 7:13 AM EDT 09/22/2024 7:13 AM EDT Tova Vera MD LAB BLOOD ORDERABLES Final Resul t [facility] [address] [place] [phone] * (ABNORMAL) Lipid Panel with Reflex to Direct LDL (09/22/2024 7:13 AM EDT) Triglycerides 173(H) <150 mg/dL [facility] Comment:Desirable Triglyceri de: less than 150 mg/dLBorderline High Triglyceride 150-199 mg/dLHigh Triglyceride: 200-499 mg/dLVery High Triglyceride: greater than or equal to 5OO mg/dL Cholesterol 166 <200 mg/dL [facility] Comment:Desirable Cholestero l: less than 200 mg/dLBorderline High Cholesterol: 200-239 mg/dLHigh Cholesterol: greater than 239 mg/dL LDL Cholesterol Calculated 79 <100 mg/dL [facility] Comment:Desirable LDL: less than 100 mg/dLNear Optimal/Above Optimal LDL: 110- 129 mg/dLBorderline High LDL: 130-159 mg/dLHigh LDL: 160-189 mg/dLVery High LDL: greater than or equal to 190 mg/dL HDL Cholesterol 53 >40 mg/dL [facility] Comment:Desirable HDL: great er than 40 mg/dL Note: This HDL assay may give artificially low results in patients with liver disease. Blood 09/22/2024 7:13 AM EDT 09/22/2024 7:13 AM EDT Tova Vera MD LAB BLOOD ORDERABLES Final Resul t Performing Organization Address [facility]/ZIP Co de Phone Number [facility] [address] [place] [phone] * Uric acid (09/22/2024 7:13 AM EDT) Uric Acid 4.9 3.4 - 7.0 mg/dL [facility] Blood Venous blood specimen / Unknown 09/22/2024 7:13 AM EDT 09/22/2024 7:13 AM EDT Tova Vera MD LAB BLOOD ORDERABLES Final Resul t Performing Organization Address [facility] Co de Phone Number [facility] [address] [place] [phone] * (ABNORMAL) Comprehensive Metabolic Panel (09/22/2024 7:13 AM EDT) Sodium 138 135 - 145 mmol/L [facility] Potassium 4.1 3.3 - 5.1 mmol/L [facility] Chloride 107 96 - 108 mmol/L [facility] Carbon Dioxide 24 22 - 29 mmol/L [facility] Anion Gap 11(L) 12 - 20 [facility] Urea Nitrogen (BUN) 15 9 - 16 mg/dL [facility] Creatinine, Serum 0.75 0.5 - 1.4 mg/dL [facility] Estimated Glomerular Filt Rate >60 [facility] Comment:Chronic Kidney Disea se: Estimated GFR < 60 mL/min/1.38d0Bkldwh Kidney Disease: Estimated GFR < 15 mL/min/1.73m2 Glucose 105 60 - 115 mg/dL [facility] Calcium 9.2 8.4 - 10.2 mg/dL [facility] Bilirubin, Total 0.7 0.0 - 1.0 mg/dL [facility] Aspartate Amino Transferase 74(H) 5 - 37 U/L [facility] Alanine Aminotransferase 77(H) 0 - 40 U/L [facility] Total Protein 7.8 6.5 - 8.0 g/dL [facility] Albumin Level 4.9 3.5 - 5.0 g/dL [facility] Alkaline Phosphatase 86 39 - 117 U/L [facility] Blood Venous blood specimen / Unknown 09/22/2024 7:13 AM EDT 09/22/2024 7:13 AM EDT us Tova Vera MD LAB BLOOD ORDERABLES Final Resul t Performing Organization Address City/State/[facility] Co de Phone Number [facility] [address] [place] [phone] * Albumin, Random Urine W/Creatinine (09/22/2024 7:12 AM EDT) Creatinine, Urine 118.47 mg/dL [facility] Microalbumin Urine 19.0 mg/L [facility] Microalbum Creatinine Ratio Ur 16.0 <30 ug/mg cr [facility] Comment:Albumin/Creatinine R atio Reference Ranges: Normal: < 30 ug/mg creatinine Microalbuminuria: 30 - 300 ug/mg creatinineClinical Albuminuria: > 300 ug/mg creatinine Urine 09/22/2024 7:1 2 AM EDT 09/22/2024 7:47 AM EDT Tova Vera MD LAB URINE ORDERABLES Final Resul t Performing Organization Address City/State/[facility] Co de Phone Number [facility] [address] [place] [phone] * Hepatitis C Antibody with Reflex to HCV, RNA, Quantitative, Real-Time PCR (09/22/2023 10:31 AM EDT) Hepatitis C Antibody Nonreactive Nonreactive [facility] Comment:Antibodies to HCV no t detected; does not exclude early acuteHCV infection. Blood Venous blood specimen / Unknown 09/22/2023 10:31 AM EDT 09/22/2023 10:31 AM EDT us Tova Vera MD LAB BLOOD ORDERABLES Final Resul t Performing Organization Address [facility] C[facility] Co de Phone Number [facility] [address] [place] [address] [phone] * HIV-1/2 Antigen and Antibodies, Fourth Generation, with Reflexes (09/22/2023 10:31 AM EDT) HIV AB/AG Nonreactive Nonreactive [facility] Comment:HIV-1 p24 Ag and/or HIV-1/HIV-2 Ab not detected.A test result that is nonreactive does not exclude thepossibility of exposure to or infection with HIV-1 and/orHIV-2. Nonreactive results in this assay for individualswith prior exposure to HIV-1 and/or HIV-2 may be due toantigen and antibody levels that are below the limit ofdetection of this assay.The [employer] HIV Ag/Ab Combo assay result andsupplemental assay results should be interpreted inconjunction with the patient's clinical presentation,history and other laboratory results. If the results areinconsistent with clinical evidence, additional testing issuggested to confirm the result. Blood Venous blood specimen / Unknown 09/22/2023 10:31 AM EDT 09/22/2023 10:31 AM EDT Tova eVra MD LAB BLOOD ORDERABLES Final Resul t [facility] [address] [place] [address] [phone] * Colonoscopy (08/08/2015) Colonoscopy Normal Normal Tova Vera MD HEALTH MAINTENANCE Edited Result - Final from Last 3 Months or Most Recently Relevant to Health Maintenance [place] [address] [place] [address] , [address] [place] [id number] [place] [address] Care Teams Technical Marketing Engineer Relationship Specialty Start Date End Date Tova Vera MD [address] [place], [place] [phone] PCP - General Family Medicine 12/22/11 Raheem Merida, VeronicaD [address] [place] [address] Pharmacist Internal Medicine 07/12/23
--- OUTSIDE RECORDS SUMMARY | 2024-11-21 10:37 | XMS_ITS | Encounter Summary ---
Author Organization [employer] Address [address] [facility] 7t [place] [address] Care Team Providers Care Repeat Photocomposing Machine Operator Name Role Phone Татьяна Vera MD Primary Care Provider Raheem Merida PharmD Unavailable [phone] Reason for Referral * Imaging (Routine) - Closed Specialty Diagnoses / Procedures Referred By Conttanika t Referred To Contact Radiology Diagnoses Transaminitis Procedures US Abdomen Comp w elastography Таьтяна Vera MD [address] [place] [address] Phone: tel: fax: [address] Phone: tel: fax: Referral ID Status Reason Start Date Expiration Date Visits Re quested Visits Authorized [id number] Closed 09/28/2024 09/28/2025 1 1 Encounter Details Date Type Department Care Team (Late st Contact Info) Description 09/28/2024 Orders Only [facility] [address] [place] [address] Татьяна Vera MD [address] [place], [place] [phone] Transaminitis (Primary Dx) Social History Tobacco Use Types Packs/Day Years Used Date Smoking Tobacco: Never Passive Smoke Exposure: Never Smokeless Tobacco: Never Alcohol Answer Date Recorded Frequency of Alcohol Consumption Not on file 08/30/2023 Average Number of Drinks Not on file 07/09/2 024 Frequency of Binge Drinking Not on [...] 3:21 PM EDT) No Raheem Merida PharmD documented as of this encounter Procedures Procedure Name Priority Date/Time Associated Diagnosis Comments US ABDOMEN COMPLETE WITH ELASTOGRAPHY Routine 11/01/2024 Transaminitis documented in this encounter Results * US Abdomen Comp w elastography (11/01/2024) Anatomical Region Laterality Modality Abdomen Ultrasound us Татьяна Vera MD IMG US PROCEDURES Final Result documented in this encounter Visit Diagnoses Diagnosis Transaminitis- Primary Nonspecific elevation of levels of transaminase or lactic acid dehydrogenase (LDH) documented in this encounter Additional Health Concerns Assessment Noted Time PHQ-9 Depression Total Score: 0 12/13/19 24 4:00 PM EDT documented as of this encounter Care Teams Repeat Photocomposing Machine Operator Relationship Specialty Start Date End Date Татьяна Vera MD [address] [place] [address] PCP - General Family Medicine 12/22/11 Raheem Merida, VeronicaD [address] [place] [address] Pharmacist Internal Medicine 07/12/23 documented as of this encounter
--- OUTSIDE RECORDS SUMMARY | 2024-11-21 10:37 | XMS_ITS | Encounter Summary ---
Author Organization [employer] Address [address] [facility] 7t [place] [address] Care Team Providers Care Conference Manager Name Role Phone Татьяна Vera MD Primary Care Provider [phone] Raheem Merida PharmD Unavailable [phone] Reason for Visit * Reason Comments Med Refill Encounter Details Date Type Department Care Team ([facility] st Contact Info) Description 04/09/2024 Refill [facility] [address] [place], [place] [phone] Татьяна Vera MD [address] [place], [place] [phone] Gout, unspecified cause, unspecified chronicity, unspecified site; Essential hypertension Social History Tobacco Use Types Packs/Day Years [...] Pressure 144/80(2024 3:30 PM EDT) No Raheem Merida PharmD Hemoglobin A1c < 7 Result Component 6.2( 3:21 PM EDT) No Raheem Merida PharmD documented as of this encounter Visit Diagnoses Diagnosis Gout, unspecified cause, unspecified chronicity, unspecified site Essential hypertension Unspecified essential hypertension documented in this encounter Additional Health Concerns Assessment Noted Time PHQ-9 Depression Total Score: 0 12/13/19 24 4:00 PM EDT documented as of this encounter Care Teams Conference Manager Relationship Specialty Start Date End Date Татьяна Vera MD [address] [place] [address] PCP - General Family Medicine 12/22/11 Raheem Merida PharmD [address] [place] [address] Pharmacist Internal Medicine 07/12/23 documented as of this encounter
--- OUTSIDE RECORDS SUMMARY | 2024-11-21 10:37 | XMS_ITS | Clinical Summary ---
Author Organization [address] [facility] Address [address] [place] [address] Phone Care Team Providers Care Seismic Plotter Name Role Phone Татьяна Vera MD Primary Care Provider [phone] Allergies No known active allergies Medications lisinopriL (PRINIVIL,ZESTR IL) 10 mg tablet Take 1 tablet (10 [...] up to 20 days. - Oral Active Active Problems Problem Noted Date Diagnosed Date Arthritis of carpometacarpal (CMC) joint of both thumbs 06/24/2023 Encounters Date Type Department Care Team Description 11/01/2024 6:51 AM EDT - 11/01/2024 11:59 PM EDT Hospital Encounter [facility] Ultrasound [address] [place] [phone] Transaminitis Discharge Disposition: Home or Self Care 11/01/2024 6:51 AM EDT - 11/01/2024 11:59 PM EDT Hospital Encounter [facility] Ultrasound [address] [place] [phone] Transaminitis Discharge Disposition: Home or Self Care from Last 3 Months Medical History Medical History Date Comments Essential hypertension DX:Essent ial hypertension Diabetes mellitus type 2, co ntrolled, with complications (CMS/HCC V24, CMS/HCC V28) DX:Diabetes mellitus type 2, controlled, with complications (HCC) Anxiety state DX:Anxiety state Gout DX:Gout Social History Tobacco Use Types Packs/Day Years Used Date Smoking Tobacco: Never Assessed Sex and Gender Information Value Date Recorded Sex Assigned at Male 10/17/2024 9:28 AM EDT Legal Sex Male 8:46 PM EST Gender Identity Male 10/17/2024 9:28 AM EDT Sexual Orientation Straight 10/17/2024 9: 28 AM EDT Obstetrics History Last Filed Vital Signs Vital Sign Reading Time Taken Comments Blood Pressure - - Pulse - - Temperature - - Respiratory Rate - - Oxygen Saturation - - Inhaled Oxygen Concentration - - Weight 81.6 kg (180 lb) 02/28/2024 1:09 PM EST Height 167.6 cm (5' 6 ) 05/01/2024 12:51 PM EDT Body Mass Index 29.07 02/14/2024 8:41 AM EST Plan of Treatment Health Maintenance Due Date Last Done Comments Diabetes: Annual Foot Exam 1975 Diabetes: Annual Retina Eye Exam 1975 Zoster Vaccines (1 of 2) 2015 Cholesterol Screening (Lipid Panel) 03/18/2023 Colorectal Cancer Screening: Colonoscopy 03/18/2023 Social Influencers of Health Screening 03/18/2023 Diabetes: Annual Urine Albumin-Creatinine Ratio (uACR) 01/04/2024 Depression Screening 02/22/2024 COVID-19 Vaccine ( season) 2024 02/10/2022, 02/26/2021, 06/02/2020, Additional history exists Influenza Vaccine (#1) 2024 , 01/17/2023, 03/09/2022, Additional history exists Hepatitis A Vaccines (2 of 2 - Risk 2-dose series) 01/17/2025 07/17/2024 Diabetes: Blood Sugar Control Test (HGBA1C) 04/28/2025 10/29/2024, 03/13/2024, 12/13/2023 Diabetes: Annual GFR (Glomerular Filtration Rate) 09/22/2025 09/22/2024 Hypertension/CHF/CAD Annual BMP Blood Test 09/22/2025 09/22/2024 DTaP,Tdap,and Td Vaccines (3 - Td or Tdap) 07/25/2030 07/25/2020, 05/09/2013 RSV Immunization Adult Patients (1 - 1-dose 75+ series) 01/07/2040 Hepatitis [...] Date/Time Associated Diagnosis Comments US ABDOMEN COMPLETE Routine 11/01/2024 7 :38 AM EDT Transaminitis from Last 3 Months Results * US Abdomen Complete (11/01/2024 7:38 AM EDT) Anatomical Region Laterality Modality Body Ultrasound 11/08/2024 9:34 AM EDT Impressions 11/08/2024 9:41 AM EDT Echogenic hepatic parenchyma suggestive of steatosis or chronic liver disease. Hepatic elastography performed, with a Vmean of 1.5 m/s. Hepatic elastography measurements: Vmean less than 1.3 m/s: High probability of being normal. Vmean 1.3-1.7 m/s: In the absence of other known clinical signs, rules out compensated advanced chronic liver disease. If there are clinical signs, may need further testing for confirmation. Vmean 1.7-2.1 m/s: suggestive of compensated advanced chronic liver disease but further testing needed for confirmation. Vmean 2.1-2.4 m/s: rules in compensated advanced chronic liver disease. Vmean greater than 2.4 m/s: suggestive of clinically significant portal hypertension. -------- FINAL REPORT -------- Dictated By: Musa Garcia Dictated Date: 11/08/2024 09:34 ET Assigned Physician: Musa Garcia Reviewed and Electronically Signed By: Musa Garcia Signed Date: 11/08/2024 09:41 ET Workstation ID: [id number] Transcribed By: Self Edit Transcribed Date: 11/08/2024 09:35 ET Narrative 11/08/2024 9:41 AM EDT PROCEDURE: Ultrasound of the abdomen. HISTORY: TRANSAMINITIS. COMPARISON: None. TECHNIQUE: Grayscale, color Doppler, and spectral Doppler ultrasound evaluation of the abdomen. FINDINGS: Liver: Echogenic parenchyma. Subcentimeter cyst in the right lobe. No suspicious focal lesion. Normal flow in the main portal vein. Hepatic elastography performed, with a Vmean of 1.5 m/s. Biliary: Normal gallbladder. Normal caliber biliary tree with no visible ductal filling defect. Negative sonographic Acevedo sign. Pancreas: Visualized portions are normal. Kidneys: Normal size. No focal lesion or hydronephrosis. Spleen: Normal size. No focal lesion. Vasculature: Visualized portions of the aorta and IVC are normal. Procedure Note Snodgress, Musa, MD - 11/08/2024 PROCEDURE: Ultrasound of the abdomen. HISTORY: TRANSAMINITIS. COMPARISON: None. TECHNIQUE: Grayscale, color Doppler, and spectral Doppler ultrasoundevaluation of the abdomen. FINDINGS: Liver: Echogenic parenchyma. Subcentimeter cyst in the right lobe. Nosuspicious focal lesion. Normal flow in the main portal vein. Hepaticelastography performed, with a Vmean of 1.5 m/s. Biliary: Normal gallbladder. Normal caliber biliary tree with no visibleductal filling defect. Negative sonographic Acevedo sign. Pancreas: Visualized portions are normal. Kidneys: Normal size. No focal lesion or hydronephrosis. Spleen: Normal size. No focal lesion. Vasculature: Visualized portions of the aorta and IVC are normal. IMPRESSION: Echogenic hepatic parenchyma suggestive of steatosis or chronic liverdisease. Hepatic elastography performed, with a Vmean of 1.5 m/s. Hepatic elastography measurements: Vmean less than 1.3 m/s: High probability of being normal. Vmean 1.3-1.7 m/s: In the absence of other known clinical signs, rules outcompensated advanced chronic liver disease. If there are clinical signs,may need further testing for confirmation. Vmean 1.7-2.1 m/s: suggestive of compensated advanced chronic liverdisease but further testing needed for confirmation. Vmean 2.1-2.4 m/s: rules in compensated advanced chronic liver disease. Vmean greater than 2.4 m/s: suggestive of clinically significant portalhypertension. -------- FINAL REPORT -------- Dictated By: Musa Garcia Dictated Date: 11/08/2024 09:34 ET Assigned Physician: Musa Garcia Reviewed and Electronically Signed By: Musa Garcia Signed Date: 11/08/2024 09:41 ET Workstation ID: [id number] Transcribed By: Self Edit Transcribed Date: 11/08/2024 09:35 ET us Татьяна Vera MD [facility] [place] PROCEDURES Final Result from Last 3 Months Insurance MEDICAID - [place] Care Teams Seismic Plotter Relationship Specialty Start Date End Date Татьяна Vera MD [address] [place] [phone] PCP - General 02/07/23
--- OUTSIDE RECORDS SUMMARY | 2024-11-21 10:37 | XMS_ITS | Encounter Summary ---
Author Organization [employer] Address [address] [facility] 7t [place] [address] Care Team Providers Care Traffic Control Specialist Name Role Phone Татьяна Vera MD Primary Care Provider [phone] Raheem Merida PharmD Unavailable [phone] Reason for Visit * Reason Comments Med Refill Encounter Details Date Type Department Care Team ([facility] st Contact Info) Description 04/14/2022 Refill [facility] [address] [place], [place] [phone] Татьяна Vera MD [address] [place], [place] [phone] Social History Tobacco Use Types Packs/Day Years [...] documented as of this encounter Care Teams Traffic Control Specialist Relationship Specialty Start Date End Date Татьяна Vera MD [address] [place], [place] [phone] PCP - General Family Medicine 12/22/11 Raheem Merida, VeronicaD [address] [place] [phone] Pharmacist Internal Medicine 07/12/23 documented as of this encounter
--- OUTSIDE RECORDS SUMMARY | 2024-11-21 10:37 | XMS_ITS | Encounter Summary ---
Author Organization [employer] Address [address] [facility] [address]t [place] [address] Care Team Providers Care Operations Professional Name Role Phone Татьяна Vera MD Primary Care Provider [phone] Raheem Merida PharmD Unavailable [phone] Reason for Visit * Reason Comments Med Refill Encounter Details Date Type Department Care Team ([facility] st Contact Info) Description 03/28/2022 Refill [facility] [address] [place], [place] [phone] Татьяна Vera MD [address] [place], [place] [phone] Social History Tobacco Use Types Packs/Day Years [...] documented as of this encounter Care Teams Operations Professional Relationship Specialty Start Date End Date Татьяна Vera MD [address] [place] [address] PCP - General Family Medicine 12/22/11 Raheem Merida, VeronicaD [address] [place] [address] Pharmacist Internal Medicine 07/12/23 documented as of this encounter
== END 2024-11-21 10:20 | disposition home or self-care (01) ==
LOC: HO.HGI 09:44
PROVIDERS: PCP Family Medicine; Visit Provider Nurse Practitioner
DX: Z01.818 Encounter for other preprocedural examination (principal); Z12.11 Encounter for screening for malignant neoplasm of colon
CPT/HCPCS: 99203

== ENCOUNTER 2025-01-29 14:05 | Outpatient (AMB) | payer OTHER, MEDICAID, SELFPAY ==
--- NOTE | 2025-01-29 14:46 | MHC.OFFVIS ---
Intake Visit Reasons: Erectile Dysfunction Intake Note: New Patient is present for Erectile Dysfunction Urology Rx:Allopurinol, Tadalafil Blood Thinners:None Imaging completed: none Labs done : 01/22/23 PSA screen 0.54 Content Production Specialist Required: No Accompanied by: Spouse Allergies No Known Allergies Allergy (Verified 01/29/25 14:48) HPI Comments Details: Jesu is a pleasant Thai-speaking male. He is a patient of Dr. Cote. He is seen for the following urologic conditions - Peyronie's disease - erectile dysfunction Translation provided by was comfortable in the throughout Dorsal curvature Significant thickening and calcification of dorsal base surface Trial vitamin-E plus pentoxifylline plus daily tadalafil Three-month follow-up [facility] Medical History (Updated 01/29/25 @ 15:22 by Sourav Canales MD) Laceration of right middle finger Hyperlipemia Diabetes HTN (hypertension) Gout Surgical History (Updated 11/21/24 @ 09:56 by SURYA Boone) History of ankle surgery H/O colonoscopy Social History Alcohol intake: current Alcohol intake frequency: a few times a week Alcohol type: beer Patient Tobacco Use Status: Never used Tobacco Current occupational status: employed Current occupation: [employer]/ right hand dominant Review of Systems Const Denies chills and Denies fever(s) Card Reports no additional complaints and Denies syncope Resp Denies cough GI Denies abdominal pain and Denies heartburn Reports as per HPI and Denies change in libido Neuro Denies syncope Psych Denies change in libido Endo Denies change in libido Physical Exam Const General: cooperative, healthy appearing, comfortable and no acute distress Orientation/consciousness: patient oriented x3 HEENT Face and sinus: Yes normal facial exam Mouth: moist mucous membranes Neck Neck: Yes normal visual inspection, Yes full ROM and Yes trachea midline Chest Chest palpation & inspection: normal inspection of the chest Resp Effort & Inspection: normal respiratory effort, able to speak in complete sentences and no respiratory distress GI Inspection: Yes normal to inspection Back/Spine/Pelvis Cervical Spine: normal cervical lordosis Thoracic/Lumbar Spine: thoracic and lumbar spine normal to inspection Skin General skin exam: no rashes or lesions noted Neuro General: patient oriented x3, gait normal, tone normal and moves all extremities Extrem General: Yes normal to inspection and Yes capillary refill normal Results AMB Urinalysis, Automated UA Leukoctes 0 Alycia/uL Last Edit by Lisa Smith, [facility] on 01/29/25 14:59 UA Nitrite Negative Last Edit by [facility], [facility] on 01/29/25 14:59 UA Urobilinogen 0.2 mg/dL Last Edit by [facility], [facility] on 01/29/25 14:59 UA Protein 0 mg/dL Last Edit by [facility], [facility] on 01/29/25 14:59 UA pH 6.0 Last Edit by [facility], [facility] on 01/29/25 14:59 UA Blood 0 Benji/uL Last Edit by [facility], [facility] on 01/29/25 14:59 UA Specific [place] 1.020 Last Edit by [facility], [facility] on 01/29/25 14:59 UA Ketone Negative Last Edit by [facility], [facility] on 01/29/25 14:59 UA Bilirubin 0 mg/dL Last Edit by [facility], [facility] on 01/29/25 14:59 UA Glucose 0 mg/dL Last Edit by [facility], [facility] on 01/29/25 14:59 Results Reviewed Results Reviewed: Laboratory Last Values Urine pH (Auto) 6.0 01/29/25 14:51 Specific [place] (Auto) 1.020 01/29/25 14:51 Urine Protein (Auto) 0 mg/dL 01/29/25 14:51 Glucose (UA)(Auto) 0 mg/dL 01/29/25 14:51 Urine Ketones (Auto) Negative 01/29/25 14:51 Urine Blood (Auto) 0 Benji/uL 01/29/25 14:51 Urine Nitrite (Auto) Negative 01/29/25 14:51 Urine Bilirubin (Auto) 0 mg/dL 01/29/25 14:51 Urine Urobilinogen (Auto) 0.2 mg/dL 01/29/25 14:51 Leukocyte Esterase (Auto) 0 Alycia/uL 01/29/25 14:51 Assessment & Plan Assessment & Plan (1) Peyronie's disease: Code(s): N48.6 - Induration penis plastica Category: Medical Plan Peyronie's baseline lab work Trial medication Orders: Orders Testosterone, Free/Total Today N48.6 - Induration penis plastica PSA,Total (Free>4and<10) Today N48.6 - Induration penis plastica AMB Urinalysis Automated Today N13.8 - Other obstructive and reflux uropathy, N40.1 - Benign prostatic hyperplasia with lower urinary tract symptoms Lutenizing Hormone Today N48.6 - Induration penis plastica Medications: New pentoxifylline ER 400 mg PO BID 180 tabs 1RF 90 days N48.6 - Induration penis plastica vitamin E (dl, acetate) 450 mg PO DAILY 90 caps 1RF 90 days N48.6 - Induration penis plastica Patient Instructions: This note is constructed using voice recognition software. While every effort has been made to ensure accuracy director of communications errors may have been included. Imaging studies, laboratory and physical exam results were discussed and reviewed in detail. No major barriers to patient understanding were identified. An opportunity to ask questions regarding the treatment plan was provided. All questions were answered. The patient expressed understanding and agreement with the above treatment plan. The patient is aware they should contact our office by phone for worsening of their current condition or the appearance of new urologic symptoms. Compliance is encouraged with any medications and followup testing that is ordered. It is a privilege to participate in the urologic care of your patient. If you have any questions or concerns regarding treatment for the above conditions, or other urologic issues, please do not hesitate to contact me. The office telephone contact is [phone]. Sincerely, Dr Sourav Canales MD, [facility] - Urology Compassionate Specialist Care for the Genitourinary System Coding Level of Care Code New Pt Level 4 (47474) Diagnoses Peyronie's disease N48.6
--- OUTSIDE RECORDS SUMMARY | 2025-01-29 20:04 | XMS_ITS | Encounter Summary ---
Author Organization [employer] Address [address] [facility] 7t [place] [address] Care Team Providers Care Kick Boxer Name Role Phone Татьяна Vera MD Primary Care Provider [phone] Raheem Merida PharmD Unavailable [phone] Reason for Visit * Reason Comments Med Refill Encounter Details Date Type Department Care Team (Late st Contact Info) Description 03/28/2022 Refill [facility] [address] [place], [place] [phone] Татьяна Vera MD [address] [place], [place] [phone] Social History Tobacco Use Types Packs/Day Years [...] as of this encounter Plan of Treatment Upcoming Encounters Date Type Department Care Team (Late st Contact Info) Description 02/07/2025 11:00 AM EST Office Visit [facility] [address] [place], [place] [phone] Татьяна Vera MD [address] [place] [phone] documented as of this encounter Visit Diagnoses Not on filedocumented in this encounter Additional Health Concerns Assessment Noted Time PHQ-9 Depression Total Score: 2 03/09/19 23 3:09 PM EST documented as of this encounter Care Teams Kick Boxer Relationship Specialty Start Date End Date Татьяна Vera MD [address] [place] [phone] PCP - General Family Medicine 12/22/11 Raheem Merida, VeronicaD [address] [place] [address] [phone] Pharmacist Internal Medicine 07/12/23 documented as of this encounter
--- OUTSIDE RECORDS SUMMARY | 2025-01-29 20:04 | XMS_ITS | Encounter Summary ---
Author Organization [employer] Address [address] [facility] 7t [place] [address] Care Team Providers Care Noise Abatement Engineer Name Role Phone Татьяна Vera MD Primary Care Provider [phone] Raheem Merida PharmD Unavailable [phone] Reason for Visit * Reason Comments Med Refill Encounter Details Date Type Department Care Team (Late st Contact Info) Description 04/14/2022 Refill [facility] [address] [place] [address] [phone] Татьяна Vera MD [address] [place] [address] [phone] Social History Tobacco Use Types Packs/Day Years [...] Description 02/07/2025 11:00 AM EST Office Visit [facility] [address] [place], [place] [phone] Татьяна Vera MD [address] [place] [address] [phone] documented as of this encounter Visit Diagnoses Not on filedocumented in this encounter Additional Health Concerns Assessment Noted Time PHQ-9 Depression Total Score: 2 03/09/19 23 3:09 PM EST documented as of this encounter Care Teams Noise Abatement Engineer Relationship Specialty Start Date End Date Таьтяна Vera MD [address] [place] [address] PCP - General Family Medicine 12/22/11 Raheme Merida, Varun [address] [place] [address] Pharmacist Internal Medicine 07/12/23 documented as of this encounter
--- OUTSIDE RECORDS SUMMARY | 2025-01-29 20:04 | XMS_ITS | Encounter Summary ---
Author Organization [employer] Address 75 [facility] 7t [place] [address] Care Team Providers Care Ui Architect Name Role Phone Татьяна Vera MD Primary Care Provider [phone] Raheem Merida PharmD Unavailable [phone] Reason for Visit * Reason Comments Med Refill Encounter Details Date Type Department Care Team ([facility] st Contact Info) Description 01/25/2025 Refill [facility] MEDICINE [address] [place], [place] [phone] Татьяна Vera MD [address] [place], [place] [phone] Social History Tobacco Use Types Packs/Day Years Used Date Smoking Tobacco: Never Passive Smoke Exposure: Never Smokeless Tobacco: Never Alcohol Answer Date Recorded How often do [...] Description 02/07/2025 11:00 AM EST Office Visit [facility] MEDICINE [address] [place] [phone] Татьяна Vera MD [address] [place] [address] documented as of this encounter Goals Goal Patient Goal Type Associated Problems Recent Progress Patient-Stated? Author Blood Pressure < 140/90 Blood Pressure 144/80(2024 3:30 PM EDT) No Raheem Merida, PharmAmelie Hemoglobin A1c < 7 Result Component 6.2( 3:21 PM EDT) No Raheem Merida PharmD Help patients manage their type 2 diabetes Care Plan Help patients manage their type 2 diabetes No Pattie Jiménez Weekly blood pressure task Care Plan Weekly blood pressure task No Pattie Jiménez Help patients manage their type 2 diabetes Care Plan Help patients manage their type 2 diabetes No Pattie Jiménez Patient has chronic kidney disease Care Plan Patient has chronic kidney disease No Pattie Jimnéez documented as of this encounter Visit Diagnoses Not on filedocumented in this encounter Additional Health Concerns Active Problems Noted Date Diagnosed Date Help patients manage their type 2 diabetes 01/16 Weekly blood pressure task 01/16/2025 Help patients manage their type 2 diabetes 01/16 Patient has chronic kidney disease 01/16/2025 Assessment Noted Time PHQ-9 Depression Total Score: 0 12/13/19 4:00 PM EDT documented as of this encounter Care Teams Ui Architect Relationship Specialty Start Date End Date Татьяна Vera MD [address] [place] [address] PCP - General Family Medicine 12/22/11 Raheem Merida, VeronicaD [address] [place] [phone] Pharmacist Internal Medicine 07/12/23 documented as of this encounter
--- OUTSIDE RECORDS SUMMARY | 2025-01-29 20:04 | XMS_ITS | Clinical Summary ---
Author Organization [address] [facility] Address [address] [place] [address] Phone Care Team Providers Care Rodding Machine Tender Name Role Phone Татьяна Vera MD Primary Care Provider Allergies No known active allergies Medications lisinopriL [...] - 11/01/2024 11:59 PM EDT Hospital Encounter [facility] Ultrasound [address] [place] [phone] Transaminitis Discharge Disposition: Home or Self Care 11/01/2024 6:51 AM EDT - 11/01/2024 11:59 PM EDT Hospital Encounter [facility] Ultrasound [address] [place] [phone] Transaminitis Discharge Disposition: Home or Self Care [...] Orientation Straight 10/17/2024 9: 28 AM EDT Last Filed Vital Signs Vital [...] Health Maintenance Due Date Last Done Comments Colorectal Cancer Screening: Colonoscopy 1965 Diabetes: Annual Foot Exam 1975 Diabetes: Annual Retina Eye Exam 1975 RSV Immunization Adult Patients (1 - Risk 50-74 years 1-dose series) 2015 Zoster Vaccines (1 of 2) 2015 Cholesterol Screening (Lipid Panel) 03/18/2023 Social Influencers of Health Screening 03/18/2023 [...] - Td or Tdap) 07/25/2030 07/25/2020, 05/09/2013 Hepatitis B Vaccines Completed 01/23/2013, 04/24/2007, 12/26/2006, [...] Signed Date: 11/08/2024 09:41 ET Workstation ID: [id number] Transcribed By: Self Edit Transcribed Date: 11/08/2024 [...] aorta and IVC are normal. Procedure Note Musa Garcia MD - 11/08/2024 PROCEDURE: Ultrasound of the [...] Signed Date: 11/08/2024 09:41 ET Workstation ID: [id number] Transcribed By: Self Edit Transcribed Date: 11/08/2024 09:35 ET us Татьяна Vera MD [facility] [place] PROCEDURES Final Result from Last 3 Months Insurance MEDICAID - [facility] Care Teams Rodding Machine Tender Relationship Specialty Start Date End Date Татьяна Vera MD [address] [place] [phone] PCP - General 02/07/23
--- OUTSIDE RECORDS SUMMARY | 2025-01-29 20:04 | XMS_ITS | Encounter Summary ---
Author Organization [employer] Address 75 [facility] 7t [place] [address] Care Team Providers Care Nail Puller Name Role Phone Татьяна Vera MD Primary Care Provider [phone] Raheem Merida PharmD Unavailable [phone] Reason for Visit * Reason Comments Med Refill Encounter Details Date Type Department Care Team (Late Contact Info) Description 03/17/2022 Refill [facility] MEDICINE [address] [place] [phone] Татьяна Vera MD [address] [place] [address] [phone] Gout, unspecified cause, unspecified chronicity, unspecified site [...] Encounters Date Type Department Care Team (Late Contact Info) Description 02/07/2025 11:00 AM EST Office Visit [facility] MEDICINE [address] [place] [address] Татьяна Vera MD [address] [place] [address] documented as of this encounter Visit Diagnoses Diagnosis Gout, unspecified cause, unspecified chronicity, unspecified site documented in this encounter Additional Health Concerns Assessment Noted Time PHQ-9 Depression Total Score: 2 03/09/19 23 3:09 PM EST documented as of this encounter Care Teams Nail Puller Relationship Specialty Start Date End Date Татьяна Vera MD [address] [place] [phone] PCP - General Family Medicine 12/22/11 Raheem Merida, VeronicaD [address] [place] [phone] Pharmacist Internal Medicine 07/12/23 documented as of this encounter
--- OUTSIDE RECORDS SUMMARY | 2025-01-29 20:04 | XMS_ITS | Clinical Summary ---
Author Organization [employer] Address 75 [facility] 7t [place] [address] Care Team Providers Care Demonstrator Sales Name Role Phone Tova Vera MD Primary Care Provider [phone] Raheem Merida PharmD Unavailable [phone] Allergies No known active allergies Medications colchicine [...] without long-term current use of insulin (HCC) TAKE 2 TABLETS BY MOUTH EVERY 12 HOURS 360 tablet 2 03/13/19 25 Active atenolol (Tenormin) 25 MG tabletIndicatio ns:Essential hypertension TAKE 1 TABLET BY MOUTH EVERY DAY 90 tablet 3 05/22/19 25 Active atorvastatin (Lipitor) 10 MG tabletIndicatio ns:Gout, unspecified cause, unspecified chronicity, unspecified site TAKE 1 TABLET BY MOUTH EVERY DAY IN THE MORNING 90 tablet 3 05/22/19 25 Active repaglinide (Prandin) 0.5 MG tablet TAKE 1 TABLET (0.5 MG) BY MOUTH BEFORE BREAKFAST, BEFORE LUNCH, AND BEFORE EVENING MEAL. 90 tablet 3 06/06/19 25 026 Active Blood Glucose Monitoring Suppl (FreeStyle Lite) w/Device kitIndications: Type 2 diabetes mellitus with hyperglycemia, without long-term current use of insulin ([facility]) 1 each Once per day. Use to test blood sugar 2 times daily 1 kit 07/19/19 25 Active FreeStyle lancetsIndicati ons:Type 2 diabetes mellitus with hyperglycemia, without long-term current use of insulin ([facility]) 1 each by Other route Once per day. 100 each 3 07/19/19 25 026 Active FREESTYLE LITE test stripIndication s:Type 2 diabetes mellitus with hyperglycemia, without long-term current use of insulin ([facility]) TEST BLOOD SUGAR TWICE DAY 100 each 11 07/19/19 25 026 Active tadalafil (Cialis) 10 MG tablet 10 mg as a single dose >=30 minutes prior to anticipated sexual activity; do not take more than once daily. Erectile function may be improved for up to 36 hours following a single dose. 30 tablet 2 10/30/19 25 Active ibuprofen 800 MG tablet TAKE 1 TABLET (800 MG) BY MOUTH EVERY 8 (EIGHT) HOURS IF NEEDED FOR FEVER, HEADACHES OR MODERATE PAIN. 50 tablet 1 01/26/20 25 Active ibuprofen 800 MG tablet TAKE 1 TABLET (800 MG) BY MOUTH EVERY 8 (EIGHT) HOURS IF NEEDED FOR FEVER, HEADACHES OR MODERATE PAIN. 50 tablet 1 05/22/19 25 025 Discontinued Active Problems Problem Noted Date Diagnosed Date Controlled type 2 diabetes with neuropathy 10/29 Closed left ankle fracture 12/13/2023 Assessment & Plan (03/17/2024 6:43 PM EST): -date of injury 12/07/23 -Nondisplaced fracture of the left medial malleolus. Comminuted essentially nondisplaced fracture of the distal left tibia. 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 - previously seen by Dr. Artis, [facility], upcoming appt - activity modification - judicious use of NSAIDs. 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 Possible CTS. Unlikely gout. - previously seen by Dr. Artis, [facility] - refer back to orthopedic providers [...] side effect -Eye: exam on Mar 2023, [facility] - no diabetic retinopathy; [...] side effect -Eye: exam on Mar 2023, [facility] - no diabetic retinopathy; [...] side effect -Eye: exam on Mar 2023, [facility] - no diabetic retinopathy; [...] side effect -Eye: exam on Mar 2023, [facility] - no diabetic retinopathy; [...] side effect -Eye: exam on Mar 2023, [facility] - no diabetic retinopathy; [...] side effect -Eye: exam on Mar 2023, [facility] - no diabetic retinopathy; [...] - FIB4 index 2.20, intermediate - GI: [facility], last seen in April 2019 - continue [...] - FIB4 index 2.20, intermediate - GI: [facility] last seen in April 2019 - continue [...] - FIB4 index 2.20, intermediate - GI: [facility], last seen in April 2019 - continue [...] - FIB4 index 2.20, intermediate - GI: [facility], last seen in April 2019 - continue [...] 03/09/2022 10:32 AM BY TOVA VERA MD -[facility] on 11/06/18. Fatty infiltration or [...] 01/17/2023 6:35 AM BY TOVA VERA MD -[facility] on 11/06/18. Fatty infiltration or [...] 06/05/2023 5:25 PM BY TOVA VERA MD -[facility] on 11/06/18. 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 Encounters Date Type Department Care Team Description 01/25/2025 Refill [facility] MEDICINE [address] [place] [address] Tova Vera MD from Last 3 Months Immunizations Immunization Administration [...] 10/29/2024 3:18 PM EDT Plan of Treatment Upcoming Encounters Date Type Department Care Team (Late st Contact Info) Description 02/07/2025 11:00 AM EST Office Visit [facility] MEDICINE [address] [place] [address] Tova Vera MD [address] [place] [address] Health Maintenance Due Date Last Done Comments CT Colonography 1965 FIT DNA/Cologuard 1965 FIT 1965 FOBT 1965 Sigmoidoscopy 1965 RSV Patients and Patients Aged 60 years or older (1 - Risk 50-74 years 1-dose series) 2015 Zoster Vaccines (1 of 2) 2015 COVID-19 [...] Component 6.2( 3:21 PM EDT) No Raheem Merida, Varun Help patients manage their type 2 diabetes [...] Patient has chronic kidney disease No Pattie Jiménez Procedures Procedure Name Priority Date/Time Associated Diagnosis Comments US ABDOMEN COMPLETE WITH ELASTOGRAPHY Routine 11/01/2024 Transaminitis POCT GLYCOSYLATED HEMOGLOBIN (HGB A1C) Routine 10/29/2024 3:21 PM EDT Type 2 diabetes mellitus with hyperglycemia, without long-term current use of insulin (CMS/HCC) LIPID PANEL WITH REFLEX TO DIRECT LDL Routine 09/22/2024 7:13 AM EDT Mixed hyperlipidemia ALBUMIN, RANDOM URINE W/CREATININE Routine 09/22/2024 7:12 [...] Anatomical Region Laterality Modality Abdomen Ultrasound us Tova Vera MD IMG US PROCEDURES Final Result * (ABNORMAL) POCT glycosylated hemoglobin (Hgb A1c) (10/29/2024 3:21 PM EDT) Hemoglobin A1C 6.2(A) 4.0 - 5.7 % QC Media Lot # [id number] Lot# Expiration Date [id number] Blood Capillary blood specimen / Unknown 10/29/2024 3:21 PM EDT us Tova Vera MD POINT OF CARE TEST ENTER/EDIT OR DERABLES Final Result * (ABNORMAL) Lipid Panel with Reflex to Direct LDL (09/22/2024 7:13 AM EDT) Triglycerides 173(H) <150 mg/dL [facility] Comment:Desirable Triglyceri de: less than 150 mg/dLBorderline High Triglyceride 150-199 mg/dLHigh Triglyceride: 200-499 mg/dLVery High Triglyceride: greater than or equal to 5OO mg/dL Cholesterol 166 <200 mg/dL [facility] Comment:Desirable Cholestero l: less than 200 mg/dLBorderline High Cholesterol: 200-239 mg/dLHigh Cholesterol: greater than 239 mg/dL LDL Cholesterol Calculated 79 <100 mg/dL [facility] Comment:Desirable LDL: less than 100 mg/dLNear Optimal/Above Optimal LDL: 110- 129 mg/dLBorderline High LDL: 130-159 mg/dLHigh LDL: 160-189 mg/dLVery High LDL: greater than or equal to 190 mg/dL HDL Cholesterol 53 >40 mg/dL [facility] Comment:Desirable HDL: great er than 40 mg/dL Note: This HDL assay may give artificially low results in patients with liver disease. Blood 09/22/2024 7:13 AM EDT 09/22/2024 7:13 AM EDT us Tova Vera MD LAB BLOOD ORDERABLES Final Resul t [facility] [address] [place] [address] [phone] * Albumin, Random Urine W/Creatinine (09/22/2024 7:12 AM EDT) Creatinine, Urine 118.47 mg/dL [facility] Microalbumin Urine 19.0 mg/L [facility] Microalbum Creatinine Ratio Ur 16.0 <30 ug/mg cr [facility] Comment:Albumin/Creatinine R atio Reference Ranges: Normal: < 30 ug/mg creatinine Microalbuminuria: 30 - 300 ug/mg creatinineClinical Albuminuria: > 300 ug/mg creatinine Urine 09/22/2024 7:12 AM EDT 09/22/2024 7:47 AM EDT us Tova Vera MD LAB URINE ORDERABLES Final Resul t Performing Organization Address [facility] Co de Phone Number [facility] [address] [place] [address] [phone] * Hepatitis C Antibody with Reflex to HCV, RNA, Quantitative, Real-Time PCR (09/22/2023 10:31 AM EDT) Hepatitis C Antibody Nonreactive Nonreactive [facility] Comment:Antibodies to HCV no t detected; does not exclude early acuteHCV infection. Blood Venous blood specimen / Unknown 09/22/2023 10:31 AM EDT 09/22/2023 10:31 AM EDT us Tova Vera MD LAB BLOOD ORDERABLES Final Resul t Performing Organization Address [facility] Co de Phone Number [facility] [address] [place] [address] [phone] * HIV-1/2 Antigen and Antibodies, Fourth Generation, with Reflexes (09/22/2023 10:31 AM EDT) HIV AB/AG Nonreactive Nonreactive [facility] Comment:HIV-1 p24 Ag and/or HIV-1/HIV-2 Ab not detected.A test result that is nonreactive does not exclude thepossibility of exposure to or infection with HIV-1 and/orHIV-2. Nonreactive results in this assay for individualswith prior exposure to HIV-1 and/or HIV-2 may be due toantigen and antibody levels that are below the limit ofdetection of this assay.The SwirlniBerrybenka HIV Ag/Ab Combo assay result andsupplemental assay results should be interpreted inconjunction with the patient's clinical presentation,history and other laboratory results. If the results areinconsistent with clinical evidence, additional testing issuggested to confirm the result. Blood Venous blood specimen / Unknown 09/22/2023 10:31 AM EDT 09/22/2023 10:31 AM EDT Tova Vera MD LAB BLOOD ORDERABLES Final Resul t [facility] [address] [place] [address] [phone] * Colonoscopy (08/08/2015) Pathologist [facility] Colonoscopy Normal Normal Tova Vera MD HEALTH MAINTENANCE Edited Result - Final from Last 3 Months or Most Recently Relevant to Health Maintenance Additional Health Concerns Active Problems Noted Date Diagnosed Date Help patients manage their type 2 diabetes 01/16 Weekly blood pressure task 01/16/2025 Help patients manage their type 2 diabetes 01/16 Patient has chronic kidney disease 01/16/2025 Insurance [facility] C3 Care Teams Demonstrator Sales Relationship Specialty Start Date End Date Tova Vera MD [address] [place] [phone] PCP - General Family Medicine 12/22/11 Raheem Merida, VeronicaD [address] [place] [address] Pharmacist Internal Medicine 07/12/23
--- OUTSIDE RECORDS SUMMARY | 2025-01-29 20:04 | XMS_ITS | Encounter Summary ---
Author Organization [employer] Address 75 [facility] 7t [place] [address] Care Team Providers Care Quality Control Microbiologist Name Role Phone Татьяна Vera MD Primary Care Provider [phone] Raheem Merida PharmD Unavailable [phone] Reason for Referral * Imaging (Routine) - Closed Specialty Diagnoses / Procedures Referred By Conttanika t Referred To Contact Radiology Diagnoses Transaminitis Procedures US Abdomen Comp w elastography Татьяна Vera MD [address] [place] [address] Phone: tel: fax: [address] Phone: tel: fax: Referral ID Status Reason Start Date Expiration Date Visits Re quested Visits Authorized [id number] Closed 09/28/2024 09/28/2025 1 1 Encounter Details Date Type Department Care Team (Late st Contact Info) Description 09/28/2024 Orders Only [facility] MEDICINE [address] [place] [address] Татьяна Vera MD [address] [place], [place] [phone] Transaminitis (Primary Dx) Social History Tobacco Use [...] Description 02/07/2025 11:00 AM EST Office Visit [facility] MEDICINE [address] [place], [place] [phone] Татьяна Vera MD [address] [place] [address] documented as of this encounter Goals Goal [...] documented as of this encounter Care Teams Quality Control Microbiologist Relationship Specialty Start Date End Date Татьяна Vera MD [address] [place] [address] PCP - General Family Medicine 12/22/11 Raheem Merida PharmD [address] [place] [address] Pharmacist Internal Medicine 07/12/23 documented as of this encounter
--- OUTSIDE RECORDS SUMMARY | 2025-01-29 20:04 | XMS_ITS | Encounter Summary ---
Author Organization [employer] Address 75 [facility] 7t [place] [address] Care Team Providers Care Drying Machine Operator Name Role Phone Татьяна Vera MD Primary Care Provider [phone] Raheem Merida PharmD Unavailable [phone] Reason for Visit * Reason Comments Med Refill Encounter Details Date Type Department Care Team ([facility] st Contact Info) Description 04/09/[address] [facility] MEDICINE [address] [place], [place] [phone] Татьяна Vera MD [address] [place], [place] [phone] Gout, unspecified cause, unspecified chronicity, unspecified site; [...] Description 02/07/2025 11:00 AM EST Office Visit [facility] MEDICINE [address] [place] [phone] Татьяна Vera MD [address] [place] [phone] documented as of this encounter Goals Goal [...] documented as of this encounter Care Teams Drying Machine Operator Relationship Specialty Start Date End Date Татьяна Vera MD [address] [place] [phone] PCP - General Family Medicine 12/22/11 Raheem Merida, VeronicaD [address] [place] [address] Pharmacist Internal Medicine 07/12/23 documented as of this encounter
== END 2025-01-29 15:37 | disposition home or self-care (01) ==
LOC: HO.HUSH 14:06
PROVIDERS: PCP Family Medicine; Visit Provider Urology
DX: N40.1 Benign prostatic hyperplasia with lower urinary tract symptoms (principal); N13.8 Other obstructive and reflux uropathy; N48.6 Induration penis plastica
CPT/HCPCS: 99204

== ENCOUNTER → 2025-01-29 14:05 | Outpatient (BNVA) | payer OTHER, MEDICAID, SELFPAY | PROVIDERS: PCP Family Medicine; Visit Provider Urology | DX: N48.6 Induration penis plastica (principal); N40.1 Benign prostatic hyperplasia with lower urinary tract symptoms; N13.8 Other obstructive and reflux uropathy | CPT/HCPCS: 81003 ==